=== PATIENT | female | born 1995 | race Caucasian/White ===

== ENCOUNTER 2016-10-24 17:55 | Emergency (ER) | payer BC ==
[~2016-10-24] VITALS: Ht 154.9 cm; Wt 90.7 kg
[~2016-10-24 17:55] MED LIST: AMBIEN 10MG TAB10 MG PO; AMICAR PO; AMITRIPTYLINE H10 M1 PO; CELEBREX 100MG100 MG PO; CELEBREX100 MG PO; DEPO-PROVER150 MG/ML IM; DESMOPRESSIN NS; GABAPENTIN300 M1 PO; HUMATE P; LAMICTAL150 MG PO; LORTAB 5/500 501 TAB PO; LYSTEDA650 MG PO; NUVARING1 ICR VG; ORTHO EVRA1 TD2; OXYCODONE 5MG TA5 MG PO; PERCOCET1 TAB PO; PHENERGAN 25MG.25 MG PR; PRILOSEC20 M1 PO; TAMIFLU 75MG CA75 MG PO; TAMSULOSIN HCL0.4 MG PO; UROCIT-K 1010 MEQ PO; WELLBUTRIN XL150 MG PO; WELLBUTRIN XL300 MG; ZITHROMAX Z PA250 MG PO; ZOFRAN ODT4 MG PO; ZOFRAN4 MG PO; Zofran4 MG PO; [UNRECOGNIZED DRUG - OTHER] NS; [UNRECOGNIZED DRUG - OTHER] NS; [UNRECOGNIZED DRUG - OTHER] PO
--- OUTSIDE RECORDS SUMMARY | 2016-10-24 18:10 | External Medical Summary Rpt ---
Author Author , Organization [employer] Address Unknown Phone Unavailable Care Team Providers Care Supervisor Billposting Name Role Phone A Josefa RICE MD [facility], A Unavailable Unavailable Josefa RICE MD PSC [facility] Unavailable Unavailable INC, [facility] Unavailable Unavailable INC # [id number], [facility] # [id number] BADGETT JAM, BADGETT Unavailable Unavailable JAM CHISHTI AFT, CHISHTI Unavailable Unavailable [facility], Unavailable Unavailable [facility], Unavailable Unavailable [facility] JACEK BRYAN, Unavailable Unavailable JACEK BRYAN JACEK, LINCOLN, Unavailable Unavailable JACEK, LINCOLN [facility], Unavailable Unavailable [facility] [place]available [place]available [place], [facility] [place] [facility] [place] Un[place] [facility] [place] FLOMENHOFT MARTINEZ, Unavailable Unavailable FLOMENHOFT MARTINEZ SHAHNAZ, CHRISTOPHER, Unavailable Unavailable SHAHNAZ, CHRISTOPHER [facility] Unavailable Unavailable [facility], [facility] Unavailable Unavailable [facility], [facility] Unavailable Unavailable [place], [facility] Unavailable Unavailable [place], [facility] Unavailable Unavailable [facility], [facility] Unavailable Unavailable [facility], [facility] Unavailable Unavailable INC, [facility] VAUGHN NATALIE, VAUGHN NATALIE Unavailable Unavailable VAUGHN NATALIE, VAUGHN NATALIE Unavailable Unavailable [facility], Unavailable Unavailable [facility] ABDON MATTHEWS Unavailable Unavailable DEVIN ORR, Unavailable Unavailable DEVIN COPPOLA [facility] Unavailable Unavailable PHARMACY, [facility] Unavailable Unavailable [facility], [facility] KMS NURSE Unavailable Unavailable PRACTITIONER GR, KMSF NURSE PRACTITIONER [facility] Un[facility] DEANNE GRA, DEANNE Unavailable Unavailable GRA DEANNE GRA, DEANNE Unavailable Unavailable GRA BREN ALICEA W, Unavailable Unavailable BREN ALICEA JAM, Unavailable Unavailable SUE RANKIN MIDBOE-CHAY, RENNY Unavailable Unavailable R, MIDBOE-CHAY, RENNY R JEREMY ESRTADA P, Unavailable Unavailable JEREMY ESTRADA P MIDDLETON KARTHIK, Unavailable Unavailable MIDDLETON KARTHIK PETTEY JAM, PETTEY Unavailable Unavailable JAM [facility], Unavailable Unavailable [facility] RAD[facility], JASMINA C, Unavailable Unavailable RADULESCU, JASMINA C RANSDELL WAR, Unavailable Unavailable RANSDELL WAR RANSDELL WAR, Unavailable Unavailable RANSDELL WAR NAN INFANTE, Unavailable Unavailable NAN INFANTE ELMO MARCELINA, ELMO Unavailable Unavailable AMRCELINA ELMO MARCELINA, ELMO Unavailable Unavailable MARCELINA ELMO, TERESA, Unavailable Unavailable ELMO, TERESA [id number], Unavailable Unavailable [id number] Unavailable Unavailable [id number] # [id number], [facility] [id number] # [id number] MARGARITA NOVAK, Unavailable Unavailable MARGARITA NOVAK SHASHY Unavailable Unavailable WINSTON MONTERO SHASHSidney Unavailable Unavailable SHERI KUMARI, Unavailable Unavailable SHERI GRACE JEREMY V, Unavailable Unavailable ALEKSANDR BROWNING V [facility] Unavailable Unavailable [facility], [facility] Unavailable Unavailable [facility] Unavailable Unavailable [facility] NURSE, [facility] N[facility] DEPT OF Unavailable Unavailable PEDIATRIC, [facility] DEPT OF PEDIATRIC [facility], Unavailable Unavailable [facility] RADHA MARTINEZ, Unavailable Unavailable RADHA MARTINEZ EVELYN MCKENZIE, EVELYN MCKENZIE Unavailable Unavailable ALISON ESPINAL JR Unavailable Unavailable TEDDY Terry JR, EDWARD J Purpose Continuity of Care Document - 05-22-2007 through 2016 Problems Code Diagnosis DOS Provider Status 2864 VON 09-21-2013 [facility] 5920 CALCULUS OF 09-21-2013 [facility] 7880 RENAL COLIC 09-21-2013 [facility] 52327 ABDOMINAL 09-20-2013 [facility] PAIN, DEPT OF GENERALIZED PEDIATRIC 4660 ACUTE 08-28-2013 [facility] BRONCHITIS FAB 4618 OTHER ACUTE 07-19-2013 [facility] SINUS[facility]IS [facility] 62584 CLOSED 03-27-2013 DEANNE GRA DISLOCATION MULTIPLE CERVICAL VERTEBRAE 8470 NECK SPRAIN 03-27-2013 DEANNE GRA AND STRAIN 8471 THORACIC 03-27-2013 DEANNE GRA [facility] 8472 LUMBAR 03-27-2013 DEANNE GRA [facility] 06663 CORNEAL 11-15-2011 VAU[facility] NATALIE ABSCESS 77495 NAUSEA 09-01-2011 [facility] 42862 HEMATURIA 08-01-2011 ELMO MARCELINA UNSPECIFIED 462 ACUTE 06-25-2011 A Josefa RICE PHARYNGITIS [facility] 84934 UNSPECIFIED 04-15-2011 ELMO MARCELINA OTALGIA 4619 ACUTE 04-15-2011 ELMO MARCELINA SINUSITIS, UNSPECIFIED 5921 CALCULUS OF 03-14-2011 [facility] V0481 NEED 02-07-2011 [facility] VACCINATION &INOCULATIO N FLU 7088 OTHER 01-31-2011 [facility] SPECIFIED [facility] URTICARIA INC 83139 PAIN IN 01-31-2011 [facility] JOINT, [facility] MULTIPLE INC SITES 55551 GENERALIZED 01-20-2011 [facility] ANXIET[facility] DISORDER [facility] 63565 UNSPECIFIED 01-04-2011 [facility] CLOSED HOME FRACTURE OF MEDICAL CARPAL EQUIPME BONE 77345 OTHER WRIST 01-04-2011 [facility] SPRAIN AND PHYSICIANS STRAIN GROUP 47695 CONTUSION 01-04-2011 [facility] OF WRIST [facility] 83078 PAIN IN 12-21-2010 [facility] 7291 UNSPECIFIED 12-21-2010 [facility] 7295 PAIN IN 12-21-2010 [facility] SOFT MIDDLE TISSUES OF SCHOOL LIMB 9249 CONTUSION 09-14-2010 [facility] CO OF MIDDLE UNSPECIFIED SCHOOL SITE 7827 SPONTANEOUS 09-13-2010 [facility] ECCHYMOSES [facility]OL 7840 HEADACHE 09-08-2010 [facility] 23006 OTHER 09-01-2010 [facility] MALAISE [facility] FATIGUE S[facility] 98061 UNSPECIFIED 08-11-2010 [facility] SITE OF HOSPITAL ANKLE SPRAIN AND STRAIN V146 PERSONAL 08-11-2010 [facility] HISTORY OF HOSPITAL ALLERGY TO ANALGESIC AGENT V1507 PERSONAL 08-11-2010 [facility] ALLERGY TO LATEX 4659 ACUTE URIS 07-15-2010 A Josefa REESE [facility] UNSPECIFIED SITE 09777 UNSPECIFIED 07-01-2010 [facility] RETINAL VISION DEFECT 25962 REGULAR 07-01-2010 [facility] ASTIGMATISM WAR 30049 VISUAL 07-01-2010 [facility] DISCOMFORT WAR 3688 OTHER 07-01-2010 [facility] SPECIFIED WAR VISUAL DISTURBANCE S 58466 GENERALIZED 06-23-2010 [facility]IN [facility] 5641 IRRITABLE 05-20-2010 [facility] [place] [address] PAIN [place] 05-13-2010 [facility] AROUND EYE [facility] V2501 GENERAL 05-12-2010 A Josefa RICE COUNSELING [facility] PRESCRIPTIO N ORAL CONTRACEPTS V2540 UNSPECIFIED 05-12-2010 A Josefa RICE MD [facility] CONTRACEPTI VE SURVEILLANC E 7847 EPISTAXIS 04-09-2010 [facility] 7848 HEMORRHAGE 04-09-2010 [facility] FROM THROAT [facility] 7841 THROAT PAIN 03-23-2010 [facility] 6263 PUBERTY 02-24-2010 [place] [facility] 0088 INTESTINAL 01-30-2010 A Josefa RICE INFECTION [facility] DUE TO OTHER ORGANISM NEC 92872 DEHYDRATION 01-30-2010 A Josefa RICE MD [facility] 5589 OTH&UNSPEC 01-30-2010 [facility] NONINFECTIO [facility] US INC GASTROENTER ITIS&COLITI S 47550 PAIN IN 01-20-2010 [place] [facility], [facility] ANK[facility] IMAGING [facility] FOOT 8448 SPRAIN&STRA 01-20-2010 A Josefa RICE IN OTHER [facility] SPECIFIED SITES KNEE&LEG 47835 CONTUSION 01-20-2010 A Josefa RICE OF FOOT [facility] 9597 INJURY 01-20-2010 [place] OTHER&UNSPE MEDICAL CIFIED KNEE IMAGING ASS LEG ANKLE&FOOT V705 HEALTH 01-20-2010 [place] EXAMINATION MEDICAL OF DEFINED IMAGING ASS SUBPOPULATI ON 5758 OTHER 01-08-2010 [facility] NURSE SPECIFIED PRACTITIONE DISORDER OF R GR GALLBLADDER 94130 DIARRHEA 01-08-2010 [facility] [place] [address] ABDOMINAL 01-08-2010 [facility] NURSE PAIN, LEFT PRACTITIONE UPPER R GR QUADRANT V4579 OTHER 01-08-2010 [facility] NURSE ACQUIRED PRACTITIONE ABSENCE OF R GR ORGAN 82629 OTHER 11-20-2009 [facility] INSUFFICIEN CY NEC 9953 ALLERGY 11-20-2009 [facility] NOT ELSEWHERE CLASSIFIED 20368 ABDOMINAL 11-17-2009 [facility] PAIN, MEDICAL UNSPECIFIED IMAGING ASS SITE 82861 NAUSEA WITH 11-12-2009 [facility] VOMITING [facility] 99101 ABDOMINAL 11-12-2009 [facility] PAIN RIGHT MEDICAL UPPER IMAGING ASS QUADRANT 2892 NONSPECIFIC 11-02-2009 Aidee RICE MESENTERIC [facility] [place] [address] ABDOMINAL 10-28-2009 [facility] PAIN RIGHT [facility] LOWER INC QUADRANT 5601 PARALYTIC 10-27-2009 [place] [facility] 0340 STREPTOCOCC 09-24-2009 Aidee LEE MD [facility] THROAT 9233 CONTUSION 09-10-2009 [facility] OF FINGER [facility] 6262 EXCESSIVE 07-01-2009 [place] [facility]QUENT SERV [facility] MENSTRUATIO N 2850 SIDEROBLAST 06-12-2009 Aidee RICE IC ANEMIA [facility] E9479 UNSPEC 06-12-2009 A Josefa RICE RX/MEDICINA [facility] L SBSTNC CAUS ADVRS EFF TX USE 470 DEVIATED 06-08-2009 SHASHY WINSTON NASAL SEPTUM 4780 HYPERTROPHY 06-08-2009 SHASHY WINSTON OF NASAL TURBINATES 49670 OTHER 06-08-2009 [facility] DISEASES [facility]AL [facility]OSPITAL CAVITY AND SINUSES 8020 NASAL 06-08-2009 [place] BONES, ANESTHESIA CLOSED GROUP [facility] FRACTURE 11021 HEMORRHAGE 06-08-2009 [facility] COMPLICATIN [facility] PROCEDURE NEC 4720 CHRONIC 06-05-2009 SHASHY WINSTON RHINITIS 920 CONTUSION 05-25-2009 A Josefa RICE OF FACE [facility] SCALP AND NECK EXCEPT EYE 98687 OTHER 12-25-2008 [facility] CHRONIC VISION ALLERGIC CONJUNCTIVI TIS 75975 UNSPECIFIED 11-24-2008 Aidee RICE MD [facility] CONSTIPATIO N 2561 OTHER 11-03-2008 Aidee RICE OVARIAN [facility] [place] [address] SPRAIN AND 11-01-2008 [facility] STRAIN OF MEM HOS[facility] UNSPECIFIED INC SITE OF HAND 27157 SPRAIN AND 11-01-2008 [place] STRAIN OF MEDICAL UNSPECIFIED IMAGING SITE OF ASSOCIATES FOOT E8498 OTHER 11-01-[address] OF IMAGING OCCURRENCE ASSOCIATES E9278 OTH 11-01-2008 [place] OVEREXERT&S MEDICAL TRENUOUS&RE IMAGING PETITIVE ASSOCIATES MVMNTS/LOAD S 59770 ESOPHAGEAL 10-07-2008 Aidee RICE REFLUX [facility] 6253 DYSMENORRHE 10-07-2008 A Josefa Hoskins MD [facility] V061 NEED PROPH 09-15-2008 A Josefa RICE VAC W/SHAKIRA MOBLEY [facility] DIPHTH-TETA NUS-PERTUSS VAC V202 ROUTINE 09-15-2008 A Josefa RICE INFANT OR [facility] CHILD HEALTH CHECK 7231 CERVICALGIA 08-20-2008 SHAHNAZ, HERMILAOPHER 7241 PAIN IN 08-20-2008 SHAHNAZ, THORACIC CHRISTOPHER SPINE 3629 UNSPECIFIED 07-25-2008 [facility] RETINAL VISION DISORDER 5368 DYSPEPSIA&O 04-08-2008 [facility] THER SPEC HEALTH DISORDERS CENTRAL FUNCTION BANK ACCT STOMACH 71319 FEVER 02-23-2008 [facility] UNSPECIFIED [facility] INC 3670 HYPERMETROP 09-10-2007 EM [facility]OWN[facility] V 2879 UNSPECIFIED 07-20-2007 [facility] HEMORRHAGIC INC CONDITIONS N23 UNSPECIFIED RENAL COLIC Medications Na ND Rx Da Fi Fi Am Da Di Ph RX Ph St me C No te ll ll ou ys ag ar # ys at rm s nt no ma ic us Or Da si cy ia de te s n re d OR 50 08 10 4 9. 56 EA 23 JA Ac TH 45 -2 -[address] 84 CK ti O 80 6- 1- 0 SI 22 SO ve EV 19 20 20 DE N RA 21 11 11 WE 5 PH ND PA AR Y TC MA L H CY OF CY NT HI AN A AD 54 10 10 0 30 30 EA 24 BR Ac DE 09 -1 -[address] 49 AU ti RA 20 3- 3- 00 SI 63 N ve LL 38 20 20 DE NA 70 11 11 NC XR 1 PH Y AR 20 MA CY MG OF CA PS CY UL NT E HI AN A VE 00 10 10 0 30 30 EA 24 BR Ac NL 09 -0 -[address] 43 AU ti AF 37 4- 8- 00 SI 79 N ve AX 38 20 20 DE NA IN 00 11 11 NC E 1 PH Y HC AR L MA 37 CY .5 OF MG CY TA NT BL HI ET AN A ON 65 10 10 12 30 RI 90 RI Ac DA 86 -0 -0 .0 TE 13 SH ti NS 20 1- 1- 00 80 ER ve ET 18 20 20 AI RO 73 11 11 D RI N 0 PH CH HC AR AR L MA D 4 CY MG 03 TA 93 BL 8 ET # 03 93 IN 64 09 09 0 14 14 EA 24 MA Ac EV 76 -2 -[address] 30 SH ti PA 40 9- 9- 00 SI 29 BU ve C 70 20 20 DE RN PA 20 11 11 TI 1 PH AM EN AR Y T MA B PA CY CK OF CY NT HI AN A NE 00 09 09 1 30 30 EA 24 MA Ac XI 18 -2 -[address] 30 SH ti UM 65 9- 9- 00 SI 30 BU ve 04 [address] 03 11 11 1 PH AM 40 AR Y MA B MG CY CA OF PS UL CY E NT HI AN A CE 45 09 09 6 30 30 EA 24 MA Ac TI 80 -2 -[address] 24 SH ti RI 20 6- 6- 00 SI 84 BU ve ZI 91 20 20 DE RN NE 98 11 11 7 PH AM HC AR Y L MA B 10 CY MG OF TA CY BL NT ET HI AN A RA 53 09 09 6 60 30 EA 24 MA Ac NI 74 -2 -[address] 24 SH ti TI 60 6- 6- 00 SI 85 BU ve DI 25 20 20 DE RN NE 31 11 11 0 PH AM 15 AR Y 0 MA B MG CY TA OF BL ET CY NT HI AN A TR 00 09 09 6 80 20 EA 24 MA Ac IA 16 -2 -[address] 24 SH ti MC 80 6- 6- 00 SI 88 BU ve IN 00 20 20 DE RN OL 68 11 11 ON 0 PH AM E AR Y 0. MA B 1% CY OI OF NT ME CY NT NT HI AN A LO 45 09 09 1 30 30 EA 24 RI Ac RA 80 -1 -[address] 14 SH ti TA 20 9- 9- 00 SI 73 ER ve DI 65 20 20 DE NE 08 11 11 RI 7 PH CH 10 AR AR MA D MG CY TA OF BL ET CY NT HI AN A 00 09 09 0 90 30 EA 24 BR Ac 17 -1 -[address] 09 AU ti 25 5- 5- 00 SI 64 N ve 66 20 20 DE NA 56 11 11 NC 0 PH Y AR MA CY OF CY NT HI AN A AD 54 09 09 0 30 30 EA 24 BR Ac DE 09 -1 -[address] 09 AU ti RA 20 5- 5- 00 SI 66 N ve LL 38 20 20 DE NA 70 11 11 NC XR 1 PH Y AR 20 MA CY MG OF CA PS CY UL NT E HI AN A ME 00 09 09 0 21 6 EA 24 MO Ac TH 78 -1 -[address] 03 SE ti YL 15 0- 0- 00 SI 71 S ve IN [address] ED 20 11 11 EP NI 7 PH HE SO AR N LO MA A NE CY 4 OF MG CY DO NT SE HI PK AN A BU 00 08 08 3 90 30 EA 23 BR Ac SP 37 -2 -[address] 86 AU ti IR 81 9- 9- 00 SI 67 N ve ON 14 20 20 DE NA E 00 11 11 NC HC 1 PH Y L AR 5 MA MG CY TA OF BL ET CY NT HI AN A SE 59 08 08 0 15 12 EA 23 BR Ac RT 76 -2 -[address] 86 AU ti RA 24 9- 9- 00 SI 70 N ve LI 94 20 20 DE NA NE 00 11 11 NC 1 PH Y 20 AR MA MG CY /M L OF OR AL CY NT CO HI NC AN A OR 50 08 08 4 9. 56 EA 23 JA Ac TH 45 -2 -[address] 84 CK ti O 80 6- 6- 0 SI 22 SO ve EV 19 20 20 DE N RA 21 11 11 WE 5 PH ND PA AR Y TC MA L H CY OF CY NT HI AN A 00 08 08 0 15 4 EA 23 BUCKNER Ac 59 -1 -[address] 70 LL ti 10 6- 7- 00 SI 00 ve 34 20 20 DE MA 90 11 11 RS 1 PH BUCKNER AR LL MA M CY OF CY NT HI AN A AD 54 08 08 0 30 30 EA 23 SW Ac DE 09 -0 -[address] 64 OP ti RA 20 8- 2- 00 SI 80 E ve LL 38 20 20 DE MA 50 11 11 RI XR 1 PH AN AR A 15 MA CY MG OF CA PS CY UL NT E HI AN A SE 16 08 08 0 15 30 EA 23 SW Ac RT 71 -0 -[address] 55 OP ti RA 40 5- 5- 00 SI 31 E ve LI 61 20 20 DE MA NE 30 11 11 RI 6 PH AN HC AR A L MA 10 CY 0 MG OF TA CY BL NT ET HI AN A BU 00 05 06 3 90 30 EA 22 TI Ac SP 37 -2 -[address] 66 MM ti IR 81 4- 0- 00 SI 23 E ve ON 14 20 20 DE RE E 00 11 11 BE HC 1 PH CC L AR A 5 MA MG CY TA OF BL ET CY NT HI AN A AD 54 06 06 0 30 30 EA 22 TI Ac DE 09 -1 -[address] 88 MM ti RA 20 0- 0- 00 SI 43 E ve LL 38 20 20 DE RE 50 11 11 BE XR 1 PH CC AR A 15 MA CY MG OF CA PS CY UL NT E HI AN A SE 16 06 06 0 13 21 EA 22 TI Ac RT 71 -0 -[address] 79 MM ti RA 40 3- 3- 00 SI 82 E ve LI 61 20 20 DE RE NE 10 11 11 BE 6 PH CC HC AR A L MA 25 CY MG OF TA CY BL NT ET HI AN A ME 59 06 06 0 1. 30 EA [address] 76 -0 -[address] 77 CK ti OX 24 1- 1- 0 SI 82 SO ve YP 53 20 20 DE N RO 70 11 11 WE GE [address] AR Y ER MA L ON CY E 15 OF 0 MG CY /M NT L HI AN A SE 16 04 05 1 30 30 EA 22 TI Ac RT 71 -2 -[address] 21 MM ti RA 40 0- 4- 00 SI 92 E ve LI 61 20 20 DE RE NE 30 11 11 BE 6 PH CC HC AR A L MA 10 CY 0 MG OF TA CY BL NT ET HI AN A DE 00 05 05 0 30 30 EA 22 TI Ac XT 55 -2 -[address] 66 MM ti RO 50 4- 4- 00 SI 22 E ve AM 97 20 20 DE RE P- 10 11 11 BE AM 2 PH CC PH AR A ET MA AM CY IN E OF 5 MG CY NT TA HI B AN A AD 54 05 05 0 30 30 EA 22 TI Ac DE 09 -0 -[address] 50 MM ti RA 20 9- 2- 00 SI 09 E ve LL 38 20 20 DE RE 50 11 11 BE XR 1 PH CC AR A 15 MA CY MG OF CA PS CY UL NT E HI AN A AZ 00 05 05 0 6. 5 EA 22 RI Ac IT 09 -0 -[address] 37 SH ti HR 37 3- 3- 0 SI 33 ER ve OM 14 20 20 DE YC 61 11 11 RI IN 8 PH CH AR AR 25 MA D 0 CY MG OF TA BL CY ET NT HI AN A CL 00 03 05 1 30 30 EA 21 BU Ac ON 22 -2 -[address] 85 RC ti ID 82 5- 2- 00 SI 10 HE ve IN 12 20 20 DE TT E 81 11 11 HC 0 PH HE L AR AT 0. MA HE 2 CY R MG OF TA BL CY ET NT HI AN A BU 00 03 05 1 90 30 EA 21 BU Ac SP 37 -2 -[address] 85 RC ti IR 81 5- 2- 00 SI 16 HE ve ON 14 20 20 DE TT E 00 11 11 HC 1 PH HE L AR AT 5 MA HE MG CY R TA OF BL ET CY NT HI AN A SE 16 04 04 1 30 30 EA 22 TI Ac RT 71 -2 -[address] 21 MM ti RA 40 0- 2- 00 SI 92 E ve LI 61 20 20 DE RE NE 30 11 11 BE 6 PH CC HC AR A L MA 10 CY 0 MG OF TA CY BL NT ET HI AN A DE 00 04 04 0 30 30 EA 22 TI Ac XT 55 -2 -[address] 21 MM ti RO 50 0- 2- 00 SI 93 E ve AM 97 20 20 DE RE P- 10 11 11 BE AM 2 PH CC PH AR A ET MA AM CY IN E OF 5 MG CY NT TA HI B AN A AB 59 03 04 1 30 30 EA 21 BU Ac IL 14 -2 -[address] 85 RC ti IF 80 5- 9- 00 SI 15 HE ve Y 00 20 20 DE TT 2 61 11 11 MG 3 PH HE AR AT TA MA HE BL CY R ET OF CY NT HI AN A ME 59 10 04 2 1. 30 EA [address] 76 -2 -[address] 64 CK ti OX 24 2- 5- 0 SI 82 SO ve YP 53 20 20 DE N RO 70 10 11 WE GE [address] AR Y ER MA L ON CY E 15 OF 0 MG CY /M NT L HI AN A AD 54 03 03 0 30 30 EA 21 WA Ac DE 09 -3 -[address] 92 CH ti RA 20 1- 1- 00 SI 30 EL ve LL 38 20 20 DE MA 50 11 11 N XR 1 PH EPI AR HN 15 MA D CY MG OF CA PS CY UL NT E HI AN A CL 00 03 03 1 30 30 EA 21 BU Ac ON 22 -2 -[address] 85 RC ti ID 82 5- 5- 00 SI 10 HE ve IN 12 20 20 DE TT E 81 11 11 HC 0 PH HE L AR AT 0. MA HE 2 CY R MG OF TA BL CY ET NT HI AN A SE 16 03 03 1 30 30 EA 21 BU Ac RT 71 -2 -[address] 85 RC ti RA 40 5- 5- 00 SI 14 HE ve LI 61 20 20 DE TT NE 30 11 11 6 PH HE HC AR AT L MA HE 10 CY R 0 MG OF TA CY BL NT ET HI AN A BU 00 03 03 1 90 30 EA 21 BU Ac SP 37 -2 -[address] 85 RC ti IR 81 5- 5- 00 SI 16 HE ve ON 14 20 20 DE TT E 00 11 11 HC 1 PH HE L AR AT 5 MA HE MG CY R TA OF BL ET CY NT HI AN A 68 03 03 0 20 10 EA 21 RI Ac 82 -1 -[address] 63 SH ti 00 0- 0- 00 SI 42 ER ve 06 20 20 DE 30 11 11 RI 9 PH CH AR AR MA D CY OF CY NT HI AN A 60 03 03 0 12 4 EA 21 RI Ac 25 -1 -[address] 63 SH ti 80 0- 0- 00 SI 43 ER ve 23 20 20 0 DE 91 11 11 RI 6 PH CH AR AR MA D CY OF CY NT HI AN A AB 59 01 03 1 30 30 EA 21 BU Ac IL 14 -3 -[address] 03 RC ti IF 80 1- 8- 00 SI 94 HE ve Y 00 20 20 DE TT 2 61 11 11 MG 3 PH HE AR AT TA MA HE BL CY R ET OF CY NT HI AN A 67 01 03 1 30 30 EA 21 BU Ac 25 -3 -[address] 03 RC ti 30 1- 3- 00 SI 96 HE ve 26 20 20 DE TT 31 11 11 0 PH HE AR AT MA HE CY R OF CY NT HI AN A CO 50 03 03 0 30 30 EA 21 RI Ac NC 45 -0 -[address] 51 SH ti ER 80 3- 3- 00 SI 53 ER ve TA 58 20 20 DE 80 11 11 RI ER 1 PH CH AR AR 27 MA D CY MG OF TA BL CY ET NT HI AN A SE 16 01 02 1 30 30 EA 21 BU Ac RT 71 -3 -[address] 03 RC ti RA 40 1- 7- 00 SI 99 HE ve LI 61 20 20 DE TT NE 30 11 11 6 PH HE HC AR AT L MA HE 10 CY R 0 MG OF TA CY BL NT ET HI AN A AB 59 01 02 1 30 30 EA 21 BU Ac IL 14 -3 -[address] 03 RC ti IF 80 1- 5- 00 SI 94 HE ve Y 00 20 20 DE TT 2 61 11 11 MG 3 PH HE AR AT TA MA HE BL CY R ET OF CY NT HI AN A HY 16 01 02 1 12 30 EA [address] 71 -3 -[address] 03 RC ti OX 40 1- 5- 00 SI 97 HE ve YZ 08 20 20 0 DE TT IN 10 11 11 E 4 PH HE HC AR AT L MA HE 10 CY R MG OF TA CY BL NT ET HI AN A CO 50 01 02 0 30 30 EA 21 ED Ac NC 45 -0 -[address] 03 WA ti ER 80 4- 1- [address] ve TA 58 20 20 DE S 80 11 11 SH ER 1 PH AR AR ON 27 MA CY MG OF TA BL CY ET NT HI AN A 67 01 02 1 30 30 EA 21 BU Ac 25 -3 -[address] 03 RC ti 30 1- 1- 00 SI 96 HE ve 26 20 20 DE TT 31 11 11 0 PH HE AR AT MA HE CY R OF CY NT HI AN A 00 01 01 0 30 5 EA 20 RI Ac 59 -2 -[address] 98 SH ti 10 7- 7- 00 SI 48 ER ve 34 20 20 DE 90 11 11 RI 1 PH CH AR AR MA D CY OF CY NT HI AN A 68 01 01 0 20 10 EA 20 RI Ac 82 -2 -[address] 98 SH ti 00 7- 7- 00 SI 49 ER ve 06 20 20 DE 30 11 11 RI 9 PH CH AR AR MA D CY OF CY NT HI AN A SE 16 01 01 1 30 30 EA 20 BU Ac RT 71 -0 -[address] 70 RC ti RA 40 6- 9- 00 SI 49 HE ve LI 61 20 20 DE TT NE 30 11 11 6 PH HE HC AR AT L MA HE 10 CY R 0 MG OF TA CY BL NT ET HI AN A CO 50 01 01 0 30 30 EA 20 ED Ac NC 45 -0 -[address] 70 WA ti ER 80 6- 9- [address] ve TA 58 20 20 DE S 50 11 11 SH ER 1 PH AR AR ON 18 MA CY MG OF TA BL CY ET NT HI AN A AB 59 01 01 1 30 30 EA 20 BU Ac IL 14 -0 -[address] 70 RC ti IF 80 6- 6- 00 SI 47 HE ve Y 00 20 20 DE TT 2 61 11 11 MG 3 PH HE AR AT TA MA HE BL CY R ET OF CY NT HI AN A HY 16 01 01 1 12 30 EA [address] 71 -0 -[address] 70 RC ti OX 40 6- 6- 00 SI 48 HE ve YZ 08 20 20 0 DE TT IN 10 11 11 E 4 PH HE HC AR AT L MA HE 10 CY R MG OF TA CY BL NT ET HI AN A ME 59 10 01 2 1. 30 EA [address] 76 -2 -[address] 64 CK ti OX 24 2- 5- 0 SI 82 SO ve YP 53 20 20 DE N RO 70 10 11 WE GE [address] AR Y ER MA L ON CY E 15 OF 0 MG CY /M NT L HI AN A SE 16 12 12 1 30 30 EA 20 ED Ac RT 71 -0 -[address] 30 WA ti RA 40 7- 0- [address] ve LI 61 20 20 DE S NE 30 10 10 SH 6 PH AR HC AR ON L MA 10 CY 0 MG OF TA CY BL NT ET HI AN A CO 50 12 12 0 30 30 EA 20 ED Ac NC 45 -1 -[address] 45 WA ti ER 80 8- 8- [address] ve TA 58 20 20 DE S 50 10 10 SH ER 1 PH AR AR ON 18 MA CY MG OF TA BL CY ET NT HI AN A ST 00 12 12 1 30 30 EA 20 YO Ac RA 00 -0 -[address] 30 UN ti TT 23 7- 7- 00 SI 37 G ve ER 22 20 20 DE RO A 83 10 10 SL 25 0 PH YN AR MG MA CY CA PS OF UL E CY NT HI AN A HY 16 12 12 1 12 30 EA [address] 71 -0 -[address] 30 UN ti OX 40 7- 7- 00 SI 38 G ve YZ 08 20 20 0 DE RO IN 10 10 10 SL E 4 PH YN HC AR L MA 10 CY MG OF TA CY BL NT ET HI AN A SE 16 10 11 1 30 30 EA 19 ED Ac RT 71 -1 -[address] 55 WA ti RA 40 5- 8- [address] ve LI 61 20 20 DE S NE 30 10 10 SH 6 PH AR HC AR ON L MA 10 CY 0 MG OF TA CY BL NT ET HI AN A AZ 00 11 11 0 6. 5 EA 20 RI Ac IT 09 -1 -[address] 02 SH ti HR 37 7- 7- 0 SI 61 ER ve OM 14 20 20 DE YC 61 10 10 RI IN 8 PH CH AR AR 25 MA D 0 CY MG OF TA BL CY ET NT HI AN A 60 11 11 0 12 3 EA 20 RI Ac 25 -1 -[address] 02 SH ti 80 7- 7- 00 SI 62 ER ve 23 20 20 0 DE 91 10 10 RI 6 PH CH AR AR MA D CY OF CY NT HI AN A ZHOU 24 11 11 0 15 5 EA 19 LE Ac LF 20 -1 -[address] 96 WI ti AC 80 4- 4- 00 SI 99 S ve ET 67 20 20 DE JR AM 00 10 10 ID 4 PH DW E AR IG 10 MA HT % CY E EY E OF DR OP CY S NT HI AN A HY 16 10 11 1 12 30 EA [address] 71 -1 -[address] 49 UN ti OX 40 1- 8- 00 SI 49 G ve YZ 08 20 20 0 DE RO IN 10 10 10 SL E 4 PH YN HC AR L MA 10 CY MG OF TA CY BL NT ET HI AN A ST 00 11 11 1 30 30 EA 19 YO Ac RA 00 -0 -[address] 89 UN ti TT 23 8- 8- 00 SI 30 G ve ER 23 20 20 DE RO A 83 10 10 SL 18 0 PH YN AR MG MA CY CA PS OF UL E CY NT HI AN A ME 59 10 10 2 1. 30 EA [address] 76 -2 -[address] 64 CK ti OX 24 2- 2- 0 SI 82 SO ve YP 53 20 20 DE N RO 70 10 10 WE GE [address] AR Y ER MA L ON CY E 15 OF 0 MG CY /M NT L HI AN A SE 16 10 10 1 30 30 EA 19 ED Ac RT 71 -1 -[address] 55 WA ti RA 40 5- 8- [address] ve LI 61 20 20 DE S NE 30 10 10 SH 6 PH AR HC AR ON L MA 10 CY 0 MG OF TA CY BL NT ET HI AN A 00 10 10 1 [address] Ac 09 -1 -[address] 53 RU ti 37 3- 3- 00 SI 23 P ve [address] 80 10 10 EP 1 PH HE AR N MA E CY OF CY NT HI AN A HY 16 10 10 1 12 30 EA [address] 71 -1 -[address] 49 UN ti OX 40 1- 1- 00 SI 49 G ve YZ 08 20 20 0 DE RO IN 10 10 10 SL E 4 PH YN HC AR L MA 10 CY MG OF TA CY BL NT ET HI AN A SE 16 09 09 1 15 30 EA 19 RI Ac RT 71 -1 -[address] 12 SH ti RA 40 4- 8- 00 SI 82 ER ve LI 61 20 20 DE NE 30 10 10 RI 6 PH CH HC AR AR L MA D 10 CY 0 MG OF TA CY BL NT ET HI AN A 00 09 09 0 30 10 EA 19 MO Ac 59 -2 -[address] 29 SE ti 10 5- 5- 00 SI 46 S ve [address] 90 10 10 EP 1 PH HE AR N MA A CY OF CY NT HI AN A 00 09 09 0 12 30 EA 19 GA Ac 09 -2 -[address] 27 IN ti 37 4- 4- 00 SI 54 EY ve 30 20 20 DE 16 10 10 WA 5 PH CH AR AE MA L CY S OF CY NT HI AN A SE 16 09 09 0 7. 14 EA 19 RI Ac RT 71 -1 -[address] 11 SH ti RA 40 4- 4- 0 SI 73 ER ve LI 61 20 20 DE NE 20 10 10 RI 6 PH CH HC AR AR L MA D 50 CY MG OF TA CY BL NT ET HI AN A ME 00 08 08 2 1. 1 EA [address] 70 -2 -[address] 89 RC ti OX 36 7- 7- 0 SI 46 UM ve YP 80 20 20 DE RO 10 10 10 WA GE [address] AR AM ER MA B ON CY E 15 OF 0 MG CY /M NT L HI AN A ZHOU 53 08 08 0 14 7 EA 18 CO Ac LF 74 -2 -[address] 79 LE ti AM 60 0- 0- 00 SI 54 ve ET 27 20 20 DE KA HO 20 10 10 RA XA 5 PH L ZO AR LE MA -T CY MP OF DS CY TA NT BL HI ET AN A EP 49 08 08 2 1. 1 EA 18 RI Ac IP 50 -1 -[address] 74 SH ti EN 20 7- 7- 0 SI 42 ER ve 50 20 20 DE 0. 00 10 10 RI 3 1 PH CH MG AR AR MA D AU CY TO -I OF [place] EC CY TO NT R HI AN A 00 08 08 0 20 5 EA 18 BA Ac 59 -0 -[address] 62 YL ti 10 7- 7- 00 SI 85 IF ve 34 20 20 DE F 90 10 10 SH 1 PH ER AR RY MA L CY OF CY NT HI AN A 00 04 08 1 2. 30 AC 25 PE Ac 05 -0 -0 50 CR 52 TE ti 32 7- 3- 0 ED 4 RS ve 45 20 20 O ON 30 10 10 HE 0 AL ZHOU TH SA N GR M OU P IN C # 07 0 AM 61 07 08 0 16 4 AC 27 RA Ac IN 74 -2 -0 0. CR 58 DU ti OC 80 8- 3- 00 ED 4 LE ve AP 04 20 20 0 O SC RO 50 10 10 HE U IC 1 AL VL TH AD AC C ID GR OU 50 P 0 IN MG C # TA 07 B 0 IN 00 07 07 1 45 8 EA 18 RI Ac OM 78 -2 -[address] 49 SH ti ET 11 8 8- 00 SI 80 ER ve BUCKNER 83 20 20 DE ZI 01 10 10 RI NE 0 PH CH AR AR 25 MA D CY MG OF TA BL CY ET NT HI AN A DI 00 07 07 3 90 30 EA 18 FL Ac CY 59 -2 -[address] 45 OM ti CL 10 4- 4- 00 SI 90 EN ve OM 79 20 20 DE HO IN 40 10 10 FT E 1 PH 10 AR DE MA RAHUL MG CY RA H CA OF PS UL CY E NT HI AN A 00 07 07 0 12 3 EA 18 No Ac 14 -1 -[address] 37 t ti 31 7- 7- 00 SI 90 Av ve 47 20 20 DE ai 70 10 10 la 5 PH bl AR e MA CY OF CY NT HI AN A EP 49 07 07 0 1. 1 EA 18 No Ac IP 50 -1 -[address] 37 t ti EN 20 7- 7- 0 SI 91 Av ve 50 20 20 DE ai 0. 00 10 10 la 3 1 PH bl MG AR e MA AU CY TO -I OF [place] EC CY TO NT R HI AN A ME 00 07 07 0 1. 1 EA [address] 70 -0 -[address] 20 CK ti OX 36 2- 2- 0 SI 75 SO ve YP 80 20 20 DE N RO 10 10 10 WE GE [address] AR Y ER MA L ON CY E 15 OF 0 MG CY /M NT L HI AN A IN 00 06 06 1 30 5 EA 18 RI Ac OM 78 -2 -[address] 14 SH ti ET 11 8- 8- 00 SI 08 ER ve BUCKNER 83 20 20 DE ZI 01 10 10 RI NE 0 PH CH AR AR 25 MA D CY MG OF TA BL CY ET NT HI AN A 00 06 06 0 30 5 EA 18 MO Ac 59 -2 -[address] 09 SE ti 10 3- 3- 00 SI 35 S ve [address] 90 10 10 EP 1 PH HE AR N MA A CY OF CY NT HI AN A IN 37 06 06 1 60 30 EA 18 RI Ac IL 00 -2 -[address] 06 SH ti OS 00 2- 2- 00 SI 98 ER ve EC 45 20 20 DE 50 10 10 RI OT 2 PH CH C AR AR 20 MA D .6 CY MG OF TA CY BL NT ET HI AN A ME 00 02 05 3 1. 1 EA [address] 70 -2 -[address] 52 CK ti OX 36 6- 6- 0 SI 70 SO ve YP 80 20 20 DE N RO 10 10 10 WE GE [address] AR Y ER MA L ON CY E 15 OF 0 MG CY /M NT L HI AN A CE 00 05 05 0 30 10 EA 17 WR Ac PH 09 -2 -[address] 67 IG ti AL 33 0- 0- 00 SI 71 HT ve EX 14 20 20 DE IN 70 10 10 AR 5 PH DY 50 AR C 0 MA MG CY CA OF PS UL CY E NT HI AN A LI 60 05 05 0 24 6 EA 17 WR Ac DO 43 -2 -[address] 67 IG ti CA 20 0- 0- 00 SI 72 HT ve IN 46 20 20 0 DE E 40 10 10 AR 2% 0 PH DY AR C MA SC CY OU S OF SO LN CY NT HI AN A ME 00 02 04 2 1. 1 EA [address] 70 -2 -[address] 52 CK ti OX 36 6- 2- 0 SI 70 SO ve YP 80 20 20 DE N RO 10 10 10 WE GE [address] AR Y ER MA L ON CY E 15 OF 0 MG CY /M NT L HI AN A 00 04 04 1 2. 30 AC 25 PE Ac 05 -0 -1 50 CR 52 TE ti 32 7- 2- 0 ED 4 RS ve 45 20 20 O ON 30 10 10 HE 0 AL ZHOU TH SA N GR M OU P IN C # 07 0 IN 37 06 03 3 30 30 EA 12 RI Ac IL 00 -0 -[address] 98 SH ti OS 00 2- 7- 00 SI 81 ER ve EC 45 20 20 DE 50 09 10 RI OT 2 PH CH C AR AR 20 MA D .6 CY MG OF TA CY BL NT ET HI AN A ME 00 02 03 2 1. 1 EA [address] 70 -2 -[address] 52 CK ti OX 36 6- 4- 0 SI 70 SO ve YP 80 20 20 DE N RO 10 10 10 WE GE [address] AR Y ER MA L ON CY E 15 OF 0 MG CY /M NT L HI AN A 00 02 02 00 40 5 EA 16 SH Ac 59 -0 -[address] 18 ti 10 1- SI 75 HY ve 38 20 20 DE 50 10 10 RO 1 PH NA AR LD MA G CY OF CY NT HI AN A 66 01 02 00 28 7 KE 13 RA Ac 47 -2 -1 0. NT 17 DU ti 90 9- 1- UC 30 LE ve 02 20 20 0 KY 8 SC 18 10 10 U 2 CL VL IN AD IC C PH AR MA CY CE 00 02 02 00 28 7 EA 16 SH Ac PH 09 -0 -[address] 18 ti AL 33 1- 1- 00 SI 74 HY ve EX 14 20 20 DE IN 70 10 10 RO 5 PH NA 50 AR LD 0 MA G MG CY CA OF PS CY UL NT E HI AN A 00 01 01 00 30 10 EA 15 RI Ac 25 -1 -[address] 94 SH ti 83 2- 8- 00 SI 06 ER ve 65 20 20 DE 40 10 10 RI 1 PH CH AR AR MA D CY OF CY NT HI AN A AM 00 01 01 00 20 10 EA 15 RI Ac OX 09 -1 -[address] 94 SH ti -C 32 2- 8- 00 SI 05 ER ve LA 27 20 20 DE V 53 10 10 RI 87 4 PH CH 5- AR AR 12 MA D 5 CY MG OF TA CY BL NT ET HI AN A ME 00 01 01 00 1. 1 EA [address] 70 -2 -[address] 06 CK ti OX 36 2- 8- 0 SI 07 SO ve YP 80 20 20 DE N RO 10 10 10 WE GE [address] AR Y ER MA L ON CY E 15 OF 0 CY MG NT /M HI L AN A HY 00 01 01 00 12 24 EA [address] 47 -1 -[address] 94 SH ti OM 21 2- 8- 00 SI 07 ER ve ET 03 20 20 0 DE 01 10 10 RI SY 6 PH CH RU AR AR P MA D CY OF CY NT HI AN A ME 00 12 12 00 1. 1 EA [address] 70 -2 -[address] 68 CK ti OX 36 2- 1- 0 SI 95 SO ve YP 80 20 20 DE N RO 10 09 09 WE GE [address] AR Y ER MA L ON CY E 15 OF 0 CY MG NT /M HI L AN A FE 00 12 12 00 30 30 EA 15 JA Ac RR 67 -2 -[address] 68 CK ti OU 70 2- 1- 00 SI 96 SO ve S 07 20 20 DE N ZHOU 00 09 09 WE LF 1 PH ND AT AR Y E MA L 32 CY 5 MG OF CY TA NT BL HI ET AN A CA 00 10 12 01 56 28 EA 14 JA Ac WA 55 -2 -[address] 77 CK ti LA 50 0- 7- 00 SI 28 SO ve 71 20 20 DE N 0. 55 09 09 WE 35 8 PH ND AR Y MG MA L CY TA BL OF ET CY NT HI AN A 00 11 12 00 60 30 EA 15 RI Ac 60 -2 -[address] 31 SH ti 35 7- 3- 00 SI 42 ER ve 46 20 20 DE 82 09 09 RI 8 PH CH AR AR MA D CY OF CY NT HI AN A CA 00 10 11 00 56 28 EA 14 JA Ac WA 55 -2 -[address] 77 CK ti LA 50 0- 9- 00 SI 28 SO ve 71 20 20 DE N 0. 55 09 09 WE 35 8 PH ND AR Y MG MA L CY TA BL OF ET CY NT HI AN A 00 11 11 00 30 5 EA 15 RI Ac 40 -1 -[address] 07 SH ti 62 0- 9- 00 SI 72 ER ve 04 20 20 DE 11 09 09 RI 0 PH CH AR AR MA D CY OF CY NT HI AN A 00 09 11 01 82 4 AC 15 PE Ac 05 -0 -0 12 CR 83 TE ti 37 4- 5- .0 ED 9 RS ve 61 20 20 00 O ON 52 08 09 HE 0 AL ZHOU TH SA N GR M OU P IN C 00 10 11 00 10 2 EA 14 JA Ac 59 -2 -[address] 77 CK ti 10 0- 5- 00 SI 29 SO ve 34 20 20 DE N 90 09 09 WE 1 PH ND AR Y MA L CY OF CY NT HI AN A 57 10 11 00 60 20 EA 14 CO Ac 66 -2 -[address] 87 RM ti 40 7- 5- 00 SI 54 NE ve 10 20 20 DE Y 30 09 09 RH 8 PH ON AR DA MA H CY OF CY NT HI AN A CA 00 08 10 02 56 28 EA 13 JA Ac WA 55 -1 -[address] 79 CK ti LA 50 1- 2- 00 SI 86 SO ve 71 20 20 DE N 0. 55 09 09 WE 35 8 PH ND AR Y MG MA L CY TA BL OF ET CY NT HI AN A 00 06 10 00 2. 30 AC 20 PE Ac 05 -2 -2 50 CR 75 TE ti 32 4- 2- 0 ED 5 RS ve 45 20 20 O ON 30 09 09 HE 0 AL ZHOU TH SA N GR M OU P IN C AZ 00 10 10 00 6. 5 EA 14 RI Ac IT 09 -0 -[address] 59 SH ti HR 37 7- 2- 0 SI 92 ER ve OM 14 20 20 DE YC 61 09 09 RI IN 8 PH CH AR AR 25 MA D 0 CY MG OF TA CY BL NT ET HI AN A AM 00 10 10 00 20 10 EA 14 RI Ac OX 09 -1 -[address] 68 SH ti -C 32 3- 2- 00 SI 17 ER ve LA 27 20 20 DE V 53 09 09 RI 87 4 PH CH 5- AR AR 12 MA D 5 CY MG OF TA CY BL NT ET HI AN A PA 00 08 09 01 5. 15 EA 13 HI Ac TA 06 -2 -[address] 94 NE ti NO 50 1- 4- 0 SI 47 S ve L 27 20 20 DE BR 0. 10 09 09 ET 1% 5 PH T AR A EY MA E CY DR OP OF S CY NT HI AN A CA 00 08 09 01 56 28 EA 13 JA Ac WA 55 -1 -[address] 79 CK ti LA 50 1- 4- 00 SI 86 SO ve 71 20 20 DE N 0. 55 09 09 WE 35 8 PH ND AR Y MG MA L CY TA BL OF ET CY NT HI AN A CA 00 08 08 00 56 28 EA 13 JA Ac WA 55 -1 -[address] 79 CK ti LA 50 1- 7- 00 SI 86 SO ve 71 20 20 DE N 0. 55 09 09 WE 35 8 PH ND AR Y MG MA L CY TA BL OF ET CY NT HI AN A PA 00 08 08 00 5. 15 EA 13 HI Ac TA 06 -2 -[address] 94 NE ti NO 50 1- 7- 0 SI 47 S ve L 27 20 20 DE BR 0. 10 09 09 ET 1% 5 PH T AR A EY MA E CY DR OP OF S CY NT HI AN A CA 00 07 08 00 28 28 EA 13 JA Ac WA 55 -2 -[address] 63 CK ti LA 50 7- 3- 00 SI 17 SO ve 71 20 20 DE N 0. 55 09 09 WE 35 8 PH ND AR Y MG MA L CY TA BL OF ET CY NT HI AN A AM 00 07 08 00 20 10 EA 13 JA Ac OX 09 -2 -[address] 63 CK ti -C 32 7- 3- 00 SI 16 SO ve LA 27 20 20 DE N V 43 09 09 WE 50 4 PH ND 0- AR Y 12 MA L 5 CY MG OF TA CY BL NT ET HI AN A CR 00 07 07 01 28 21 EA 13 JA Ac YS 55 -0 -[address] 38 CK ti EL 59 6- 0- 00 SI 86 SO ve LE 04 20 20 DE N -2 95 09 09 WE 8 8 PH ND TA AR Y BL MA L ET CY OF CY NT HI AN A DI 00 07 07 00 2. 1 EA 13 RI Ac AZ 17 -2 -[address] 55 SH ti EP 23 0- 0- 0 SI 16 ER ve AM 92 20 20 DE 5 67 09 09 RI 0 PH CH MG AR AR MA D TA CY BL ET OF CY NT HI AN A WA 59 07 07 00 1. 1 EA 13 RO Ac SO 76 -1 -[address] 51 NE ti IN 25 6- 0- 0 SI 53 ve OS 00 20 20 DE BR TO 70 09 09 YA L 1 PH N 10 AR K 0 MA MC CY G TA OF BL CY ET NT HI AN A 00 07 07 00 30 5 EA 13 RI Ac 59 -2 -[address] 55 SH ti 10 0- 0- 00 SI 18 ER ve 34 20 20 DE 90 09 09 RI 1 PH CH AR AR MA D CY OF CY NT HI AN A 00 07 07 00 15 4 EA 13 JA Ac 40 -0 -[address] 39 CK ti 62 6- 6- 00 SI 16 SO ve 04 20 20 DE N 00 09 09 WE 1 PH ND AR Y MA L CY OF CY NT HI AN A CR 00 06 07 00 28 28 EA 13 JA Ac YS 55 -2 -[address] 31 CK ti EL 59 9- 6- 00 SI 24 SO ve LE 04 20 20 DE N -2 95 09 09 WE 8 8 PH ND TA AR Y BL MA L ET CY OF CY NT HI AN A CY 00 10 07 01 37 30 AC 16 PE Ac KL 01 -2 -0 0. CR 46 TE ti OK 31 1- 2- 00 ED 4 RS ve AP 11 20 20 0 O ON RO 41 08 09 HE N 0 AL ZHOU 10 TH SA 0 N MG GR M /M OU L P AM IN PU C L 00 06 06 00 30 7 EA 12 RI Ac 59 -0 -[address] 98 SH ti 10 2- 8- 00 SI 82 ER ve 34 20 20 DE 90 09 09 RI 1 PH CH AR AR MA D CY OF CY NT HI AN A IN 37 06 06 00 30 30 EA 12 RI Ac IL 00 -0 -[address] 98 SH ti OS 00 2- 8- 00 SI 81 ER ve EC 45 20 20 DE 50 09 09 RI OT 2 PH CH C AR AR 20 MA D .6 CY MG OF CY TA NT BL HI ET AN A JU 00 03 06 03 42 21 EA 12 WA Ac NE 55 -2 -[address] 04 DB ti L 59 4- 8- 00 SI 28 OE ve 1 02 20 20 DE -P MG 54 09 09 EN -2 2 PH N 0 AR PA MC MA ME G CY LA TA R BL OF ET CY NT HI AN A CE 00 06 06 00 30 30 EA 12 PE Ac LE 02 -0 -[address] 98 TE ti BR 51 2- 8- 00 SI 03 RS ve EX 52 20 20 DE ON 03 09 09 10 1 PH ZHOU 0 AR SA MG MA N CY M CA PS OF UL CY E NT HI AN A JU 00 03 06 02 42 21 EA 12 WA Ac NE 55 -2 -[address] 04 DB ti L 59 4- 4- 00 SI 28 OE ve 1 02 20 20 DE -P MG 54 09 09 EN -2 2 PH N 0 AR PA MC MA ME G CY LA TA R BL OF ET CY NT HI AN A JU 00 03 05 01 42 21 EA 12 WA Ac NE 55 -2 -[address] 04 DB ti L 59 4- 7- 00 SI 28 OE ve 1 02 20 20 DE -P MG 54 09 09 EN -2 2 PH N 0 AR PA MC MA ME G CY LA TA R BL OF ET CY NT HI AN A CY 00 04 04 00 20 7 EA 12 RI Ac CL 59 -0 -[address] 22 SH ti OB 13 6- 3- 00 SI 34 ER ve EN 25 20 20 DE ZA 60 09 09 RI IN 1 PH CH IN AR AR E MA D 5 CY MG OF TA CY BL NT ET HI AN A CY 00 08 04 00 36 10 AC 15 PE Ac KL 01 -1 -0 0. CR 51 TE ti OK 31 4- 9- 00 ED 2 RS ve AP 11 20 20 0 O ON RO 41 08 09 HE N 0 AL ZHOU 10 TH SA 0 N MG GR M /M OU L P AM IN PU C L JU 00 03 04 00 42 21 EA 12 WA Ac NE 55 -2 -[address] 04 DB ti L 59 4- 9- 00 SI 28 OE ve 1 02 20 20 DE -P MG 54 09 09 EN -2 2 PH N 0 AR PA MC MA ME G CY LA TA R BL OF ET CY NT HI AN A NE 61 03 04 00 5. 5 EA 12 HI Ac OM 31 -2 -[address] 10 NE ti YC 40 7- 9- 0 SI 03 S ve -P 63 20 20 DE BR OL 00 09 09 ET YM 6 PH T -D AR A EX MA AM CY ET H OF EY CY E NT DR HI OP AN A CE 00 03 04 00 36 9 EA 12 SH Ac PH 09 -2 -[address] 09 ti AL 33 7- 9- 00 SI 06 HY ve EX 14 20 20 DE IN 70 09 09 RO 5 PH NA 50 AR LD 0 MA G MG CY CA OF PS CY UL NT E HI AN A 00 03 04 00 20 4 EA 12 SH Ac 59 -2 -[address] 09 ti 10 7- 9- 00 SI 05 HY ve 38 20 20 DE 50 09 09 RO 1 PH NA AR LD MA G CY OF CY NT HI AN A CY 00 03 03 00 20 7 EA 12 RI Ac CL 59 -2 -[address] 00 SH ti OB 13 0- 6- 00 SI 30 ER ve EN 25 20 20 DE ZA 60 09 09 RI IN 1 PH CH IN AR AR E MA D 5 CY MG OF TA CY BL NT ET HI AN A AC 00 03 03 00 12 8 EA 11 RI Ac ET 12 -0 -[address] 81 SH ti AM 10 9- 6- 00 SI 11 ER ve IN 50 20 20 0 DE OP 41 09 09 RI -C 6 PH CH OD AR AR EI MA D NE CY 12 OF 0- CY 12 NT HI MG AN /5 A 00 03 03 00 20 5 EA 12 RI Ac 59 -2 -[address] 00 SH ti 10 0- 6- 00 SI 29 ER ve 34 20 20 DE 90 09 09 RI 1 PH CH AR AR MA D CY OF CY NT HI AN A AZ 00 03 03 00 6. 5 EA 11 RI Ac IT 09 -0 -[address] 81 SH ti HR 37 9- 6- 0 SI 09 ER ve OM 14 20 20 DE YC 61 09 09 RI IN 8 PH CH AR AR 25 MA D 0 CY MG OF TA CY BL NT ET HI AN A 60 03 03 00 18 7 EA 11 RI Ac 25 -0 -[address] 81 SH ti 80 9- 6- 00 SI 10 ER ve 23 20 20 0 DE 91 09 09 RI 6 PH CH AR AR MA D CY OF CY NT HI AN A 00 09 02 00 12 4 AC 15 PE Ac 05 -0 -2 16 CR 83 TE ti 37 4- 6- 8. ED 9 RS ve 61 20 20 00 O ON 52 08 09 0 HE 0 AL ZHOU TH SA N GR M OU P IN C 00 08 02 00 30 6 AC 15 PE Ac 05 -2 -2 24 CR 77 TE ti 37 9- 6- .0 ED 3 RS ve 61 20 20 00 O ON 50 08 09 HE 5 AL ZHOU TH SA N GR M OU P IN C 00 08 02 00 12 6 AC 15 PE Ac 05 -2 -2 16 CR 77 TE ti 37 9- 6- 8. ED 31 RS ve 61 20 20 00 O ON 52 08 09 0 HE 0 AL ZHOU TH SA N GR M OU P IN C 00 07 02 00 40 2 AC 14 RA Ac 05 -1 -2 52 CR 96 DU ti 37 4- 6- .0 ED 3 LE ve 61 20 20 00 O SC 52 08 09 HE U 0 AL VL TH AD C GR OU P IN C 00 07 02 00 76 4 AC 15 PE Ac 05 -2 -2 52 CR 18 TE ti 37 9- 6- .0 ED 3 RS ve 61 20 20 00 O ON 52 08 09 HE 0 AL ZHOU TH SA N GR M OU P IN C IN 00 12 01 00 30 8 CL 18 RI Ac OM 78 -0 -3 .0 IN 31 SH ti ET 11 3- 0- 00 IC 06 ER ve BUCKNER 83 20 20 ZI 01 08 09 PH RI NE 0 AR CH MA AR 25 CY D MG TA BL ET EPI 00 07 01 01 91 91 EA 98 PE Ac LE 55 -2 -[address] 87 TE ti SS 59 9- 5- 00 SI 42 RS ve A 12 20 20 DE ON 0. 36 08 09 15 6 PH ZHOU AR SA MG MA N -0 CY M .0 3 OF MG CY NT TA HI BL AN ET A AC 00 10 11 00 30 5 CL 18 No Ac ET 40 -2 -0 .0 IN 02 t ti AM 60 1- 7- 00 IC 29 Av ve IN 48 20 20 ai OP 41 08 08 PH la HE 0 AR bl N- MA e CO CY D #3 TA BL ET AZ 59 10 11 00 6. 5 RI 75 GA Ac IT 76 -1 -0 00 TE 44 IN ti HR 23 8- 7- 0 50 EY ve OM 06 20 20 AI YC 00 08 08 D WA IN 1 PH CH AR AE 25 M L 0 #3 S MG 93 8 TA BL ET CY 00 10 11 00 37 10 AC 16 PE Ac KL 01 -2 -0 0. CR 46 TE ti OK 31 1- 7- 00 ED 4 RS ve AP 11 20 20 0 O ON RO 41 08 08 HE N 0 AL ZHOU 10 TH SA 0 N MG GR M /M OU L P AM IN PU C L 57 10 10 00 90 30 CL 18 No Ac 66 -1 -2 .0 IN 00 t ti 40 6- 3- 00 IC 05 Av ve 21 20 20 ai 90 08 08 PH la 8 AR bl MA e CY SM 49 08 09 00 12 24 EA 99 No Ac 34 -2 -[address] 24 t ti AL 80 7- 1- 00 SI 47 Av ve L 84 20 20 0 DE ai DA 33 08 08 la Y 4 PH bl AL AR e LE MA RG CY Y 1 OF MG CY /M NT L HI SY AN R A 00 07 09 01 10 3 EA 98 No Ac 78 -3 -[address] 88 t ti 15 0- 1- 00 SI 85 Av ve 25 20 20 DE ai 83 08 08 la 3 PH bl AR e MA CY OF CY NT HI AN A 00 07 08 00 10 3 EA 98 No Ac 78 -3 -[address] 88 t ti 15 0- 4- 00 SI 85 Av ve 25 20 20 DE ai 83 08 08 la 3 PH bl AR e MA CY OF CY NT HI AN A EPI 00 07 08 00 91 91 EA 98 No Ac LE 55 -2 -[address] 87 t ti SS 59 9- 4- 00 SI 42 Av ve A 12 20 20 DE ai 0. 36 08 08 la 15 6 PH bl AR e MG MA -0 CY .0 3 OF MG CY NT TA HI BL AN ET A 57 04 08 01 50 16 CL 16 No Ac 66 -0 -0 .0 IN 84 t ti 40 8- 1- 00 IC 30 Av ve 21 20 20 ai 90 08 08 PH la 8 AR bl MA e CY 00 07 07 00 2. 30 AC 14 PE Ac 05 -0 -1 50 CR 83 TE ti 32 3- 7- 0 ED 6 RS ve 45 20 20 O ON 30 08 08 HE 0 AL ZHOU TH SA N GR M OU P IN C 57 04 04 00 50 16 CL 16 No Ac 66 -0 -2 .0 IN 84 t ti 40 8- 4- 00 IC 30 Av ve 21 20 20 ai 90 08 08 PH la 8 AR bl MA e CY AZ 50 03 04 00 6. 5 CL 16 No Ac IT 11 -2 -1 00 IN 74 t ti HR 10 2- 0- 0 IC 63 Av ve OM 78 20 20 ai YC 76 08 08 PH la IN 6 AR bl MA e 25 CY 0 MG TA BL ET IN 00 03 04 00 20 8 CL 16 No Ac OM 78 -2 -1 .0 IN 74 t ti ET 11 2- 0- 00 IC 62 Av ve BUCKNER 83 20 20 ai ZI 01 08 08 PH la NE 0 AR bl MA e 25 CY MG TA BL ET 66 03 04 00 11 8 CL 16 No Ac 99 -2 -1 8. IN 74 t ti 20 2- 0- 00 IC 61 Av ve 22 20 20 0 ai 00 08 08 PH la 4 AR bl MA e CY AM 61 02 03 00 53 7 AC 12 No Ac IN 74 -0 -2 2. CR 77 t ti OC 80 4- 6- 00 ED 4 Av ve AP 04 20 20 0 O ai RO 41 08 08 HE la IC 6 AL bl TH e AC ID GR OU 25 P % IN SO C BOBO TI ON 00 02 03 00 80 4 AC 12 No Ac 05 -0 -2 40 CR 76 t ti 37 4- 6- .0 ED 5 Av ve 61 20 20 00 O ai 52 08 08 HE la 0 AL bl TH e GR OU P IN C AC 00 01 03 00 60 3 CL 16 No Ac ET 12 -1 -2 .0 IN 28 t ti AM 10 6- 5- 00 IC 09 Av ve IN 50 20 20 ai OP 41 08 08 PH la -C 6 AR bl OD MA e EI CY NE 12 0- 12 MG /5 00 01 03 00 47 16 RI 71 No Ac 09 -2 -2 3. TE 60 t ti 30 1- 5- 00 62 Av ve 01 20 20 0 AI ai 41 08 08 D la 6 PH bl AR e M #3 93 8 Immunization Name Date Route CVX Reacti Commen Provid Is Given on t er Refuse d IIV3 DAKSHA No VACCIN 2010 [facility] 0.5 ML DOSAGE IM USE IIV3 DAKSHA No VACCIN 2010 [facility] 0.5 ML DOSAGE IM USE Procedures Procedure DOS Code Location Performer Comment [facility] [address] [place] [address] MEDICAL AFT CARE/DAY SERV [facility] [address] 4 IA DEPT JAM CARE/DAY OF 35 PEDIATRIC MINUTES INJECTION [id number] [facility] 4 PHYSICIAN PHYSICIAN CEFTRIAXO S GROUP S GROUP NE SODIUM PER 250 MG THERAPEUT 00671 [facility] IC 4 PHYSICIAN PHYSICIAN PROPHYLAC S GROUP S GROUP TIC/DX INJECTION SUBQ/IM CHIROPRAC 36433 DEANNE ALICEA TIC 3 GRA GRA MANIPULAT SONNY TX SPINAL 3-4 REGIONS BLOOD 90944 [facility] COUNT 3 Y Y COMPLETE [facility] AUTO&AUTO DIFRNTL WBC IRON 83747 [facility] BINDING 3 Y Y CAPACITY [facility] COLLECTIO 38865 [facility] N VENOUS 3 Y Y BLOOD [facility] VENIPUNCT URE INJECTION [id number] ELMO ELMO 2 MARCELINA MARCELINA PROMETHAZ INE HCL UP TO 50 MG URINLS 66359 ELMO ELMO DIP 2 MARCELINA MARCELINA STICK/TAB LET REAGNT NON-AUTO MICRSCPY THERAPEUT 68089 [facility] IC 2 MARCELINA MARCELINA PROPHYLAC TIC/DX INJECTION SUBQ/IM IAADIADOO 45583 A C A C 2 KRYSTAL RICE MD [place] [address] [facility] ABDOMEN & 1 N N [facility] W/O HOSPITA HOSPITA CONTRAST MATERIAL THER [address] [facility] PROPH/DX 1 N N NJX IV [facility] PUSH HOSPITA HOSPITA SINGLE/1S T SBST/[place] [address] [facility] INFUSION 1 N N HYDRATION [facility] EACH HOSPITA HOSPITA ADDITIONA L HOUR CULTURE [address] [facility] BACTERIAL 1 N N COMMUNITY [facility] QUANTTATI HOSPITA HOSPITA VE COLONY COUNT URINE URINE [address] [facility] 1 N N TEST [facility] VISUAL HOSPITA HOSPITA COLOR CMPRSN METHS THER [address] [facility] PROPH/DX 1 N N NJX EA [facility] SEQL IV HOSPITA HOSPITA PUSH SBST/DRUG FAC THERAPEUT [address] [facility] IC 1 N N INJECTION [facility] IV PUSH HOSPITA HOSPITA EACH NEW DRUG INJECTION J22[address] [facility] MORPHINE 1 N N SULFATE [facility] UP TO 10 HOSPITA HOSPITA MG COLLECTIO [address] [facility] N VENOUS 1 N N BLOOD [facility] VENIPUNCT HOSPITA HOSPITA URE INJECTION J24[address] [facility] 1 N N [facility] HCL [facility] HOSPITA PER 1 MG IIV3 [id number] [facility] TELLE[facility] VACCINE [address] [facility] CENTER VIRUS 0.5 ML DOSAGE IM USE BLOOD 20479 ROSALINDA TELLEZ COUNT 1 [facility] COMPLETE INC INC AUTO&AUTO DIFRNTL WBC RHEUMATOI 78328 ROSALINDA Paul FACTOR 1 [facility] QUANTITAT INC INC SONNY SEDIMENTA 54338 ROSALINDA TELLEZ TION RATE 1 [facility] RBC INC INC NON-AUTOM ATED MICROSOMA 21626 ROSALINDA TELLEZ L 1 [facility] ANTIBODIE INC INC S EACH ANTINUCLE 82714 ROSALINDA TELLEZ AR 1 [facility] [place] [address] ROSALINDA TELLEZ THYROXINE 1 [facility] TOTAL INC INC ANTIBODY 17383 ROSALINDA TELLEZ HELICOBAC 1 [facility] TER INC INC PYLORI C-REACTIV 79012 ROSALINDA TELLEZ E PROTEIN 1 [place] [address] [facility]ALINDA TELLE[facility] THYROID 1 [facility] STIMULATI INC INC NG HORMONE TSH COLLECTIO 06123 ROSALINDA TELLEZ N VENOUS 1 [facility] BLOOD INC INC VENIPUNCT URE WRIST L3908 JANE WALKERRELL HAND [facility] EXT EQUIPME EQUIPME CONTROL COCK-UP PREFAB RADEX 74009 ROSALINDA TELLEZ WRIST 1 [facility] COMPLETE INC INC MINIMUM 3 VIEWS THER 58334 [facility] PROPH/DX 1 Y Y NJX IV [facility] PUSH SINGLE/1S T SBST/DRUG RADEX 75147 [facility] WRIST 1 Y Y [facility] MINIMUM 3 VIEWS RADEX 87807 [facility] FOREARM 2 1 Y Y VIEWS [facility] INJ J7187 [facility] VONWILLEB 1 Y Y RND [facility] FACTOR CMPLX HUMN RISTOCETI N IU RADEX 57559 [facility] HAND 1 Y Y MINIMUM 3 HOSPITAL HOSPITAL VIEWS RADEX 86333 [facility] ELBOW 1 Y Y COMPLETE [facility] MINIMUM 3 VIEWS RADEX 24151 [facility] ANKLE 1 Y Y COMPLETE [facility] MINIMUM 3 VIEWS RADIOLOGI 26064 [facility] C 1 Y Y [facility] ON TIBIA & FIBULA 2 VIEWS RADIOLOGI 19668 [facility] 1 Y Y [facility] ON KNEE 3 VIEWS IADNA 48796 Aidee [facility] STREPTOCO 1 KRYSTAL MOBLEY MARCELINA CCUS PSC GROUP A QUANTIFIC ATION DETERMINA 09827 [facility] TION 1 WAR WAR REFRACTIV E STATE FRAMES V2020 [facility] PURCHASES 1 VISION OPHTH 86218 [facility] 1 WAR WAR XM&EVAL COMPRE NEW PT 1/> VST RPR&REFIT 32307 [facility] G 1 VISION SPECTACLE S EXCEPT APHAKIA SPHERE V2300 [facility] TRIFOCAL 1 VISION PLANO OR +/-4.00D PER LENS IIV3 58019 [facility] VACCINE 0 [facility] VIRUS 0.5 ML DOSAGE IM USE THERAPEUT 98426 [facility] IC [facility] [place] [address] [facility] INFUS[facility] THERAPY/P INC INC ROPHYLAXI S /DX 1ST TO 1 [place] [address] [facility] INFUSION 0 [facility] THERAPY INC INC PROPHYLAX IS/DX EA HOUR 3D 46868 [facility] RENDERING 0 [facility] W/INTERP& POSTPROC DIFF WORK STATION CT PELVIS 05081 [facility] W/O 0 [facility] CONTRAST INC INC MATERIAL URINE 63236 [facility] 0 [facility] TEST INC [place] [address] [facility] INFUSION 0 [facility] THERAPY INC INC PROPHYLAX [place] [address] [facility] LIPASE 0 [place] [address] [facility] ABDOMEN 0 [facility] W/[place] [address] [facility] AMYLASE 0 [facility] INC INC COMPREHEN 86810 ROS[facility] CROOKSON SIVE 0 [facility] METABOLIC INC INC PANEL THERAPEUT 57738 [facility] IC 0 [facility] INJECTION INC INC IV PUSH EACH NEW DRUG URNLS DIP 45888 [facility] 0 [facility] STICK/TAB INC INC LET REAGENT AUTO MICROSCOP Y BLOOD 96380 [facility] COUNT 0 [facility] COMPLETE INC INC AUTO&AUTO DIFRNTL WBC RADEX 95028 [place] [facility] FOOT 0 [facility] COMPLETE IMAGING MINIMUM 3 ASS VIEWS RADIOLOGI 65390 [facility] C 0 [facility] EXAMINATI IMAGING ON KNEE ASS 1/2 VIEWS RADIOLOGI 31581 [place] [facility] C 0 [facility] EXAMINATI IMAGING ON KNEE 3 ASS VIEWS ECG 92748 [facility] ROUTINE 0 Y Y ECG [facility] W/LEAST 12 LDS TRCG ONLY W/O I&R THER 75206 [facility] PROPH/DX 0 Y [facility] PUSH SINGLE/1S T SBST/DRUG ARTERIAL 36708 [facility] PUNCTURE 0 Y Y WITHDRAWA [facility] L BLOOD DX GASES 42046 [facility] BLOOD PH 0 Y Y DIRECT [facility] [place] [address] [facility] INFUSION 0 Y Y HYDRATION [facility] EACH ADDITIONA L HOUR THERAPEUT 07815 [facility] IC 0 [facility] INJECTION [place] [address] [facility] INFUSION 0 [facility] THERAPY/P INC INC ROPHYLAXI S /DX 1ST TO 1 HR HEPATBL 66817 [facility] DUX SYS 0 [facility] IMG INC INC GLBLDR THER 94777 [facility]AL[facility] PROPH/DX 0 [facility] NJX IV INC INC PUSH SINGLE/1S T SBST/[place] [address] [facility] ABDOMINAL 0 [facility] REAL INC INC TIME W/IMAGE LIMITED THERAPEUT 21046 [facility] IC 0 [facility] INJECTION INC INC IV PUSH EACH NEW DRUG URNLS DIP 85170 ROSALINDA TELLEZ 0 [facility] STICK/TAB INC INC LET REAGENT AUTO MICROSCOP Y BLOOD 99680 ROSALINDA TELLEZ COUNT 0 [facility] COMPLETE INC INC AUTO&[place] [address] ROSALINDA ROSALINDA INFUSION 0 [facility] THER INC INC PROPH ADDL SEQUENTIA L [place] 1 [place] [address] ROSALINDA TELLEZ INFUSION 0 [facility] [place] [place] THERAPY/P INC INC ROPHYLAXI S /DX 1ST TO 1 HR OBSERVATI 37750 Aidee BORREGO ON/INPATI 0 KRYSTAL MOBLEY [facility] ENT [facility] CARE 40 MINUTES HOSPITAL [id number] ROSALINDA TELLEZ OBSERVATI 0 [facility] [place] [place] [place] [facility] [place] [address] ROSALINDA TELLEZ AMYLASE 0 [facility] INC INC COMPREHEN 94932 ROSALINDA TELLEZ SIVE 0 [facility] METABOLIC INC INC PANEL COLLECTIO 23242 ROSALINDA TELLEZ N VENOUS 0 [facility] HOSP [place]LOOD [place] [address] ROSALINDA TELLEZ LIPASE 0 [facility] [place] [place] INC INC URINE 50815 ROSALINDA TELLEZ 0 [facility] TEST INC INC VISUAL COLOR CMPRSN METHS BASIC 72891 ROSALINDA TELLEZ METABOLIC 0 [facility] PANEL INC INC CALCIUM TOTAL 3D 85243 ROSALINDA TELLEZ RENDERING 0 [facility] INC INC W/INTERP& POSTPROC DIFF WORK STATION CT PELVIS 68243 ROSALINDA TELLEZ W/O 0 [facility] [place] [place] [address] ROSALINDA TELLEZ ABDOMEN 0 [facility] [place] [place] W/O INC INC CONTRAST MATERIAL IADNA 59624 Aidee BORREGO, STREPTOCO 0 KRYSTAL MOORE [facility] GROUP A QUANTIFIC ATION RADEX 11867 DANIELA MEREDITH 0 BYRON LINCOLN MINIMUM 2 IMAGING VIEWS ASSOCIATE S FUNDUS 24983 ALINE ESTRADA PHOTOGRAP 0 VISION HY W/INTERPR ETATION & REPORT OPHTH 66964 ALINE ESTRADA MEDICAL 0 VISION XM&EVAL COMPRHNSV ESTAB PT 1/> BLOOD 89558 Aidee BORREGO, COUNT 0 KRYSTAL MOORE COMPLETE PSC AUTO&AUTO DIFRNTL WBC SUBMUCOUS 28552 SANJAY GRACE RESCJ 0 [place] INFERIOR TURBINATE PRTL/COMP L SEPTOPLAS 19440 SANJAY GRACE TY/SUBMUC 0 [place] OUS RESECJ W/WO CARTILAGE GRF ANESTHESI 33342 [place] ZIEMBROSK A NOSE & 0 ANESTHESI I JR, ACCESSORY A GROUP EDWARD J SINUSES PSC NOS OTHER [address] [facility] TURBINECT 0 N N [facility] CLOSED [address] [facility] REDUCTION 0 N N OF NASAL [facility]PITAL OTHER [address] [facility] SEPTOPLAS 0 N N TY [facility] CHIROPRAC 00694 DEANNE ALICEA, TIC 9 BREN W BREN W MANIPULAT [place] SPINAL 3-[place] [address] DEANNE ALICEA, 1/> AREAS 9 BREN W BREN W EACH 15 MINUTES MASSAGE APPLICATI 24745 DEANNE ALICEA, ON 9 BREN W BREN W MODALITY 1/> AREAS HOT/COLD PACKS APPL 96110 DEANNE ALICEA, MODALITY 9 BREN W BREN W 1/> AREAS ELEC STIMJ EA 15 MIN APPL 49819 DEANNE ALICEA, MODALITY 9 BREN W BREN W 1/> AREAS TRACTION MECHANICA L APPL 43888 DEANNE ALICEA, MODALITY 9 BREN W BREN W 1/> AREAS ELE[place] [address] [place] [address] DEANNE ALICEA, 1/> AREAS 9 BREN W BREN W EACH 15 MINUTES MASSAGE APPLICATI 72401 DEANNE ALICEA, ON 9 BREN W BREN W MODALITY 1/> AREAS HOT/COLD PACKS CHIROPRAC 08744 DEANNE ALICEA, TIC 9 BREN W BREN W MANIPULAT [place] SPINAL 3-4 REGIONS APPL 53423 DEANNE ALICEA, MODALITY 9 BREN W BREN W 1/> [place] [address] DEANNE ALICEA, 1/> AREAS 9 BREN W BREN W EACH 15 MINUTES MASSAGE CHIROPRAC 56178 DEANNE ALICEA, TIC 9 BREN W BREN W MANIPULAT [place] SPINAL 3-4 REGIONS APPLICATI 16015 DEANNE ALICEA, ON 9 BREN W BREN W MODALITY 1/> AREAS HOT/COLD PACKS APPL 48661 DEANNE ALICEA, MODALITY 9 BREN W BREN W 1/> AREAS ELEC STIMJ EA 15 MIN APPL 33650 DEANNE ALICEA, MODALITY 9 BREN W BREN W 1/> AREAS TRACTION MECHANICA L COLLECTIO 88407 Aidee BORREGO, N VENOUS [address] [facility] BLOOD [facility] VENIPUNCT URE RADEX 46803 ROSALINDA TELLEZ FINGR 9 [facility] MINIMUM 2 INC INC VIEWS APPL 23602 DEANNE ALICEA, MODALITY 9 BREN W BREN W 1/> [place] [address] DEANNE ALICEA, 1/> AREAS 9 BREN W BREN W EACH 15 MINUTES MASSAGE CHIROPRA 51281 DEANNE ALICEA, TIC 9 BREN W BREN W MANIPULAT [place] SPINAL 3-4 REGIONS APPL 90165 DEANNE ALICEA, MODALITY 9 BREN W BREN W 1/> AREAS ELEC STIMJ EA 15 MIN APPL 12877 DEANNE ALICEA, MODALITY 9 BREN W BREN W 1/> AREAS ELEC STIMJ EA 15 MIN APPL 80839 DEANNE ALICEA, MODALITY 9 BREN W BREN W 1/> AREAS TRACTION MECHANICA L APPLICATI 07316 DEANNE ALICEA, ON 9 BREN W BREN W MODALITY 1/> AREAS HOT/COLD PACKS CHIROPRAC 97465 DEANNE ALICEA, TIC 9 BREN W BREN W MANIPULAT [place] SPINAL 3-[address] [place] [address] DEANNE DEANNE, 1/> AREAS 9 BREN W BREN W EACH [place] [address] DEANNE DEANNE, 1/> AREAS 9 BREN W BREN W EACH 15 MINUTES MASSAGE CHIROPRAC 01476 DEANNE ALICEA, TIC 9 BREN W BREN W MANIPULAT S[place] SPINAL 3-4 REGIONS APPL 09012 DEANNE ALICEA, MODALITY 9 BREN W BREN W 1/> AREAS TRACTION MECHANICA L APPLICATI 09230 DEANNE DEANNE, ON 9 BREN W BREN W MODALITY 1/> AREAS HOT/COLD PACKS APPL 34631 DEANNE ALICEA, MODALITY 9 BREN W BREN W 1/> AREAS ELEC STIMJ EA 15 MIN CHIROPRAC 66489 DEANNE ALICEA, TIC 9 BREN W BREN W MANIPULAT S[place] SPINAL 3-4 REGIONS APPLICATI 67765 DEANNE ALICEA, ON 9 BREN W BREN W MODALITY 1/> AREAS H[place] [address] DEANNE ALICEA, 1/> AREAS 9 BREN W BREN W EACH 15 MINUTES MASSAGE APPL 28212 DEANNE ALICEA, MODALITY 9 BREN W BREN W 1/> AREAS ELEC STIMJ EA 15 MIN FRAMES V2020 ALINE NOVAK, PURCHASES 9 VISION MARGARITA M OPHTH 25369 ALINE NOVAK, MEDICAL 9 VISION MARGARITA M XM&EVAL COMPRHNSV ESTAB PT 1/> SPHERE V2100 ALINE NOVAK, SINGLE 9 VISION MARGARITA M VISION PLAN[place] +/- 4.00 [place] [address] DEANNE ALICEA, 1/> AREAS 9 BREN W BREN W EACH 15 MINUTES MASSAGE CHIROPRAC 50122 DEANNE ALICEA, TIC 9 BREN W BREN W MANIPULAT [place] SPINAL 3-4 REGIONS APPL 42110 DEANNE ALICEA, MODALITY 9 BREN W BREN W 1/> [place] [address] DEANNE ALICEA, 1/> AREAS 9 BREN W BREN W EACH 15 MINUTES MASSAGE CHIROPRAC 09113 DEANNE ALICEA, TIC 9 BREN W BREN W MANIPULAT [place] SPINAL 3-4 REGIONS APPL 02751 DEANNE ALICEA, MODALITY 9 BREN W BREN W 1/> AREAS ELEC STIMJ EA 15 MIN APPL 82182 DEANNE ALICEA, MODALITY 9 BREN W BREN W 1/> AREAS TRACTION MECHANICA L APPLICATI 85999 DEANNE ALICEA, ON 9 BREN W BREN W MODALITY 1/> AREAS HOT/COLD PACKS APPL 94898 DEANNE ALICEA, MODALITY 9 BREN W BREN W 1/> [place] [address] DEANNE ALICEA, 1/> AREAS 9 BREN W BREN W EACH 15 MINUTES MASSAGE APPLICATI 22785 DEANNE ALICEA, ON 9 BREN W BREN W MODALITY 1/> AREAS HOT/COLD PACKS APPL 45889 DEANNE ALICEA, MODALITY 9 BREN W BREN W 1/> AREAS ELEC STIMJ EA 15 MIN CHIROPRAC 81934 DEANNE ALICEA, TIC 9 BREN W BREN W MANIPULAT [place] SPINAL 3-[address] [place] [address] DEANNE ALICEA, 1/> AREAS 9 BREN W BREN W EACH 15 MINUTES MASSAGE APPL 72229 DEANNE ALICEA, MODALITY 9 BREN W BREN W 1/> AREAS TRACTION MECHANICA L APPLICATI 78946 DEANNE ALICEA, ON 9 BREN W BREN W MODALITY 1/> AREAS HOT/COLD PACKS CHIROPRAC 95136 DEANNE ALICEA, TIC 9 BREN W BREN W MANIPULAT S[place] SPINAL 3-4 REGIONS APPL 66789 DEANNE ALICEA, MODALITY 9 BREN W BREN W 1/> AREAS ELEC STIMJ EA 15 MIN APPL 81865 DEANNE ALICEA, MODALITY 9 BREN W BREN W 1/> AREAS ELEC STIMJ EA 15 MIN APPL 32708 DEANNE ALICEA, MODALITY 9 BREN W BREN W 1/> AREAS TRACTION MECHANICA L CHIROPRAC 62842 DEANNE ALICEA, TIC 9 BREN W BREN W MANIPULAT SONNY [place] SPINAL 3-4 REGIONS APPLICATI 28372 DEANNE ALICEA, ON 9 BREN W BREN W MODALITY 1/> AREAS [place] [address] DEANNE ALICEA, 1/> AREAS 9 BREN W BREN W EACH 15 MINUTES MASSAGE SELF-CARE 57214 DEANNE ALICEA, /HOME 9 BREN W BREN W MGMT TRAINING EACH 15 MINUTES APPL 34946 DEANNE ALICEA, MODALITY 9 BREN W BREN W 1/> AREAS TRACTION MECHANICA L APPLICATI 54322 DEANNE ALICEA, ON 9 BREN W BREN W MODALITY 1/> AREAS HOT/COLD PACKS RADEX 69036 DEANNE DEANNE, SPINE 9 BREN W BREN W CERVICAL 2 OR 3 VIEWS RADEX 39842 DEANNE DEANNE, SPINE 9 BREN W BREN W THORACIC 2 VIEWS APPL 75272 DEANNE ALICEA, MODALITY 9 BREN W BREN W 1/> AREAS ELEC STIM[place] [address] DEANNE ALICEA, 1/> AREAS 9 BREN W BREN W EACH 15 MINUTES MASSAGE APPL 59815 SHAHNAZ, SHAHNAZ, MODALITY 9 TAMI GARRETT 1/> AREAS ER ER ULTRASOUN D EA 15 MIN APPL 10434 SHAHNAZ, SHAHNAZ, MODALITY 9 TAMI GARRETT 1/> AREAS ER ER ELEC STIMJ UNATTENDE D CHIROPRAC 47674 SHAHNAZ, SHAHNAZ, TIC 9 TAMI TAMI MANIPULAT ER ER SONNY [place] SPINAL 1-2 REGIONS APPL 45365 SHAHNAZ, SHAHNAZ, MODALITY 9 TAMI TAMI 1/> AREAS ER ER ELEC STIMJ UNATTENDE D APPL 56699 SHAHNAZ, SHAHNAZ, MODALITY 9 TAMI TAMI 1/> AREAS ER ER ULTRASOUN D EA 15 MIN THERAPEUT 62444 SHAHNAZ, SHAHNAZ, IC PX 1/> 9 TAMI TAMI AREAS ER ER EACH 15 MIN EXERCISES CHIROPRAC 03097 SHAHNAZ, SHAHNAZ, TIC 9 TAMI TAMI MANIPULAT ER ER SONNY [place] SPINAL 1-2 REGIONS CHIROPRAC 46471 SHAHNAZ, SHAHNAZ, TIC 9 TAMI TAMI MANIPULAT ER ER SONNY [place] SPINAL 1-2 REGIONS APPL 12378 SHAHNAZ, SHAHNAZ, MODALITY 9 TAMI TAMI 1/> AREAS ER ER ELEC STIMJ UNATTENDE D APPL 64221 SHAHNAZ, SHAHNAZ, MODALITY 9 TAMI TAMI 1/> AREAS ER ER ULTRASOUN D EA 15 MIN CHIROPRAC 44365 SHAHNAZ, SHAHNAZ, TIC 9 TAMI TAMI MANIPULAT ER ER SONNY [place] SPINAL 1-2 REGIONS SBSQ 11583 [facility] 9 N FAMILY NAN D CARE/DAY PHYS PSC 35 MINUTES CLOSED 48221 SANJAY GRACE, TREATMENT 9 SHERI Novak NASAL FRACTURE W/[place] [address] ROSALINDA TELLEZ HEAD/BRAI 9 [facility] N W/O INC INC CONTRAST MATERIAL 3D 78691 ROSALINDA TELLEZ RENDERING 9 [facility] W/INTERP INC INC & POSTPROCE SS SUPERVISI ON RADEX 98940 ALONSO READ, ORBITS 9 MEDICAL [place] COMPLETE IMAGING MINIMUM 4 ASSOCIATE VIEWS S CLOSED 23330 SANJAY GRACE, TREATMENT 9 SHERI Novak NASAL FRACTURE W/O MANIPULAT ION RADEX 08841 [place] JACEK, NASAL 9 MEDICAL [place] BONES IMAGING COMPLETE ASSOCIATE MINIMUM 3 S VIEWS IAADI 38522 ROSALINDA TELLEZ INFLUENZA 8 [facility] B VIRUS INC INC IMMUNOASS 63398 ROSALINDA TELLEZ AY NFCT 8 [facility] AGT ANTB INC INC QUAL/SEMI [place] 1 [place] [address] ROSALINDA TELLEZ STREPTOCO 8 [facility] CCUS INC INC GROUP A THER 20369 ROSALINDA TELLEZ PROPH/DX 8 [facility] NJX EA INC INC SEQL IV PUSH SBST/DRUG BLOOD 74562 ROSALINDA TELLEZ COUNT 8 [facility] COMPLETE INC INC AUTO&AUTO DIFRNTL WBC IAADI 91277 ROSALINDA TELLEZ INFFLUENZ 8 [facility] A A VIRUS INC INC URNLS DIP 60481 ROSALINDA TELLEZ 8 [facility] STICK/TAB INC INC LET REAGENT AUTO MICROSCOP Y BASIC 16375 ROSALINDA TELLEZ METABOLIC 8 [facility] PANEL INC INC CALCIUM TOTAL SPHERE V2100 NALLELY BROWNING, SINGLE 8 ALEKSANDR V ALEKSANDR V VISION PLANO +/- 4.00 PER LENS FITTING 67634 NALLELY BROWNING, SPECTACLE 8 ALEKSANDR BRANDON V S XCPT APHAKIA MONOFOCAL FRAMES V2020 NALLELY BROWNING, PURCHASES 8 ALEKSANDR Kimmie BRANDON V OPHTH 00994 NALLELY BROWNING, MEDICAL 8 ALEKSANDR V ALEKSANDR V XM&EVAL COMPRHNSV ESTAB PT 1/> THER 18134 ROSALINDA TELLEZ PROPH/DX 8 [facility] NJX IV INC INC PUSH 1ST SBST/DRUG URNLS DIP 49733 ROSALINDA TELLEZ 8 [facility] STICK/TAB INC INC LET REAGENT AUTO MICROSCOP Y RADEX 01846 ALONSO NJLEY, ANKLE 8 MEDICAL JEREMY P COMPLETE IMAGING MINIMUM 3 ASSOCIATE VIEWS S RADEX 04226 ROSALINDA TELLEZ FOOT 8 [facility] COMPLETE INC INC MINIMUM 3 VIEWS RADIOLOGI 00939 ROSALINDA ROSALINDA C 8 [facility] EXAMINATI INC INC ON ANKLE 2 VIEWS Encounters Encounter Start End Date Code Location Performer Type Date OFFICE 80553 CAROLINE VELAZQUEZ OUTPATIEN 4 4 FAB FAB T VISIT 15 MINUTES OFFICE 40891 [facility] OUTPATIEN 4 4 PHYSICIAN T NEW 20 S GROUP MINUTES [facility] 26378 KANE MIDDLETON OUTPATIEN 3 3 KARTHIK KARTHIK T VISIT 15 MINUTES OFFICE 68710 JOHANA VAUGHN NATALIE OUTPATIEN 2 2 T VISIT 10 MINUTES OFFICE 81708 ROSALINDA TELLEZ OUTPATIEN 2 2 [facility] 10 MINUTES OFFICE 51635 ELMO ELMO OUTPATIEN 2 2 MARCELINA MARCELINA T VISIT 15 MINUTES OFFICE 47037 A C OUTPATIEN 2 2 KRYSTAL MOBLEY T VISIT PSC 15 MINUTES OFFICE 24072 ELMO ELMO OUTPATIEN 1 1 MARCELINA MARCELINA T VISIT 15 MINUTES OFFICE 62782 ELMO ELMO OUTPATIEN 1 1 MARCELINA MARCELINA T VISIT 15 MINUTES EMERGENCY 84901 [facility] 1 1 N [facility] T VIS[facility] HIGH/URGE NT [facility] 1 1 N OUTPATIEN COMMUNITY T [facility] HOSPITAL ROSALINDA - 1 1 [facility] OUTPATIEN INC T OFFICE 26884 ROSALINDA TELLEZ OUTPATIEN 1 1 [facility] 10 MINUTES OFFICE 04551 [facility]TE[place] OUTPATIEN 1 1 PHYSICIAN JAM T NEW 20 S GROUP MINUTES HOSPITAL ROSALINDA - 1 1 [facility] OUTPATIEN INC T EMERGENCY 41912 [facility] 1 1 Y [facility] T VISIT HIGH/URGE NT SEVERITY [facility] 18772 ROSALINDA ROSALINDA OUTPATIEN 1 1 [facility] 15 MINUTES OFFICE 46859 ROSALINDA ROSALINDA OUTPATIEN 1 1 [facility] 10 MINUTES OFFICE 21862 ROSALINDA ROSALINDA OUTPATIEN 1 1 [facility] 10 MINUTES OFFICE 76471 ROSALINDA ROSALINDA OUTPATIEN 1 1 [facility] 10 MINUTES OFFICE 10824 A C ELMO OUTPATIEN 1 1 KRYSTAL MOBLEY MARCELINA T VISIT PSC 15 MINUTES OFFICE 53118 ROSALINDA TELLEZ OUTPATIEN 1 1 [facility] 10 MINUTES OFFICE 87971 ROSALINDA TELLEZ OUTPATIEN 1 1 [facility] 10 MINUTES OFFICE 02049 ROSALINDA TELLEZ OUTPATIEN 1 1 [facility]ENC[facility] 40485 UNIVERSIT 1 1 Y [facility] T VISIT MODERATE SEVERITY OFFICE 34121 [facility] KANE OUTPATIEN 1 1 NURSE KARTHIK T VISIT PRACTITIO 15 NER GR MINUTES OFFICE 98369 A C ELMO OUTPATIEN 1 1 KRYSTAL MOBLEY MARCELINA T VISIT PSC 15 MINUTES OFFICE 74456 ROSALINDA TELLEZ OUTPATIEN 1 1 [facility] 10 MINUTES OFFICE 38984 ROSALINDA TELLEZ OUTPATIEN 1 1 [facility] 10 MINUTES OFFICE 33351 A C ELMO OUTPATIEN 1 1 KRYSTAL MOBLEY MARCELINA T VISIT PSC 15 MINUTES OFFICE 21327 ROSALINDA TELLEZ OUTPATIEN 1 1 [facility] 10 MINUTES OFFICE 68074 ROSAILNDA TELLEZ OUTPATIEN 1 1 [facility] T VISIT 5 [facility] MINUTES OFFICE 74130 ROSALINDA TELLEZ OUTPATIEN 1 1 [facility] 15 MINUTES OFFICE 27560 ROSALINDA TELLEZ OUTPATIEN 1 1 [facility] 10 MINUTES OFFICE 00987 ROSALINDA TELLEZ OUTPATIEN 1 1 [facility] 10 MINUTES OFFICE 39869 [facility] [place] OUTPATIEN 1 1 NURSE T MARTINEZ T VISIT PRACTITIO 15 NER GR MINUTES OFFICE 08961 ROSALINDA CROOKSON OUTPATIEN 1 1 [facility] 10 MINUTES OFFICE 65506 A C OUTPATIEN 1 1 KRYSTAL MOBLEY T VISIT 5 PSC MINUTES OFFICE 93468 ROSALINDA ROSALINDA OUTPATIEN 0 0 [facility] 15 MINUTES OFFICE 40141 A C ELMO OUTPATIEN 0 0 KRYSTAL HEWITT T VISIT PSC 15 MINUTES OFFICE 86059 ROSALINDA TELLEZ OUTPATIEN 0 0 [facility] 15 MINUTES OFFICE 84580 A C OUTPATIEN 0 0 KRYSTAL MOBLEY T VISIT 5 PSC MINUTES OFFICE 54054 ANDREA COPPOLA OUTPATIEN 0 0 MEDICAL RONALDO T VISIT SERV 15 FOUNDATIO MINUTES OFFICE 31573 ROSALINDA TELLEZ OUTPATIEN 0 0 [facility] 10 MINUTES OFFICE 10650 [place] EVELYN ALI CONSULTAT 0 0 MEDICAL ION SERV NEW/ESTAB FOUNDATIO PATIENT 60 MIN OFFICE 87972 A C ELMO OUTPATIEN 0 0 KRYSTAL HEWITT T VISIT PSC 15 MINUTES HOSPITAL [facility]DA - [facility] EMERGENCY 46429 [facility] 0 [facility] [place] [place] VISIT HIGH/URGE NT SEVERITY OFFICE 02518 A C ELMO OUTPATIEN 0 0 KRYSTAL HEWITT T VISIT PSC 15 MINUTES OFFICE 38746 [facility] OUTPATIEN 0 0 NURSE T MARTINEZ T VISIT PRACTITIO 25 NER GR MINUTES OFFICE 55525 A C ELMO OUTPATIEN 0 0 KRYSTAL HEWITT T VISIT 5 PSC MINUTES OFFICE 37133 [place] FLOMENHOF CONSULTAT 0 0 MEDICAL T MARTINEZ ION SERV NEW/ESTAB FOUNDATIO PATIENT 60 MIN HOSPITAL UNIVERSIT - 0 0 Y [facility] T EMERGENCY 58092 UNIVERSIT 0 0 [facility] T VISIT HIGH/URGE NT SEVERITY EMERGENCY 43579 ROSALINDA 0 0 [facility] [place] [facility] VISIT MODERATE SEVERITY HOSPITAL ROSALINDA - 0 0 [facility] [place] 22305 [place] RADULESCU OUTPATIEN 0 0 MEDICAL VLA T VISIT SERV 15 FOUNDATIO MINUTES HOSPITAL ROSALINDA - 0 0 [facility] T OFFICE 15015 A C OUTPATIEN 0 0 KRYSTAL MOBLEY T VISIT 5 PSC MINUTES OFFICE 75667 A C ELMO OUTPATIEN 0 0 KRYSTAL HEWITT T VISIT PSC 15 MINUTES EMERGENCY 17754 ROSALINDA [address] [facility] T VISIT HIGH/URGE NT SEVERITY HOSPITAL ROSALINDA - 0 0 [facility] OUTPATIEN INC T OFFICE 42552 A C OUTPATIEN 0 0 KRYSTAL MOBLEY T VISIT PSC 15 MINUTES OFFICE 70505 A C ELMO, OUTPATIEN 0 0 KRYSTAL MOORE T VISIT PSC 15 MINUTES OFFICE 70682 A C ELMO, OUTPATIEN 0 0 KRYSTAL MOORE T VISIT 5 PSC MINUTES OFFICE 36334 A C ELMO, OUTPATIEN 0 0 KRYSTAL MOORE T VISIT PSC 15 MINUTES HOSPITAL ROSALINDA - 0 0 [facility] [place] [facility] OUTPATIEN INC T OFFICE 14178 A C ELMO, OUTPATIEN 0 0 KRYSTAL MOORE T VISIT 5 PSC MINUTES OFFICE 41443 A C ELMO, OUTPATIEN 0 0 KRYSTAL MOORE T VISIT PSC 15 MINUTES OFFICE 08992 A C ELMO, OUTPATIEN 0 0 KRYSTAL MOORE T VISIT 5 PSC MINUTES OFFICE 28939 A C ELMO, OUTPATIEN 0 0 KRYSTAL MOORE T VISIT 5 PSC MINUTES OFFICE 16639 ANDREA COPPOLA OUTPATIEN 0 0 MEDICAL DEVIN L T VISIT SERV 10 FOUNDATIO MINUTES OFFICE 42051 A C ELMO, OUTPATIEN 0 0 KRYSTAL MOORE T VISIT 5 PSC MINUTES HOSPITAL [facility] - 0 0 [facility] OFFICE 65239 SANJAY GRACE OUTPATIEN 0 0 [place] MONTERO T VISIT 25 MINUTES OFFICE 14867 A C ELMO, OUTPATIEN 0 0 KRYSTAL MOORE T VISIT 5 PSC MINUTES OFFICE 87762 ANDREA COPPOLA OUTPATIEN 0 0 MEDICAL DEVIN L T VISIT SERV 10 FOUNDATIO MINUTES OFFICE 64522 A C ELMO, OUTPATIEN 0 0 KRYSTAL MOORE T VISIT PSC 15 MINUTES OFFICE 87598 A C ELMO, OUTPATIEN 0 0 KRYSTAL MOORE T VISIT PSC 15 MINUTES OFFICE 15460 A C ELMO, OUTPATIEN 9 9 KRYSTAL MOORE T VISIT PSC 15 MINUTES OFFICE 28562 A C ELMO, OUTPATIEN 9 9 KRYSTAL MOORE T VISIT PSC 15 MINUTES OFFICE 69181 ALINE NOVAK OUTPATIEN 9 9 VISION MARGARITA Howe T VISIT 10 MINUTES OFFICE 77151 ANDREA COPPOLA OUTPATIEN 9 9 MEDICAL DEVIN L T VISIT SERV 10 FOUNDATIO MINUTES OFFICE 75406 A C ELMO, OUTPATIEN 9 9 KRYSTAL MOORE T VISIT PSC 15 MINUTES OFFICE 83226 ANDREA COPPOLA OUTPATIEN 9 9 MEDICAL DEVIN L T NEW 30 SERV MINUTES FOUNDATIO OFFICE 39860 A C ELMO, OUTPATIEN 9 9 KRYSTAL MOORE T VISIT 5 PSC MINUTES HOSPITAL ROSALINDA - 9 9 [facility] OUT[facility] T EMERGENCY 65404 ROSALINDA 9 9 [facility] DEPARTMEN INC T VISIT MODERATE SEVERITY OFFICE 59043 ANDREA MIDBOE-PE OUTPATIEN 9 9 MEDICAL NN, T VISIT SERV RENNY R 15 FOUNDATIO MINUTES OFFICE 97110 A C ELMO, OUTPATIEN 9 9 KRYSTAL MOORE T VISIT PSC 15 MINUTES PERIODIC 65688 A C ELMO, PREVENTIV 9 9 KRYSTAL MOORE E MED EST PSC PATIENT 12-17YRS OFFICE 47939 DEANNE ALICEA, OUTPATIEN 9 9 BREN Dash T VISIT 10 MINUTES OFFICE 05674 SHAHNAZ CHRISTIE, OUTPATIEN 9 9 TAMI GARRETT T VISIT ER ER 15 MINUTES OFFICE 56491 SANJAY GRACE OUTPATIEN 9 9 SHERI WADE Scarlet T VISIT 25 MINUTES OFFICE 72813 ALINE NOVAK OUTPATIEN 9 9 VISION MARGARITA Howe T VISIT 15 MINUTES HOSPITAL ROSALINDA - 9 9 [facility] OUTPATIEN INC T OFFICE 50630 Aidee BORREGO OUTPATIEN 9 9 KRYSTAL MOORE T VISIT PSC 25 MINUTES OFFICE 42360 SANJAY GRACE, CONSULTAT 9 9 SHERI Novak ION NEW/ESTAB PATIENT 40 MIN OFFICE 49512 Aidee BORREGO OUTPATIEN 9 9 KRYSTAL MOORE T VISIT PSC 15 MINUTES OFFICE 79012 [facility] OUT[facility] 8 8 HEALTH T VISIT CENTRAL ELEMENTAR 15 BANK ACCT Y SCHOOL MINUTES HEALTH NURSE OFFICE 36420 [facility] OUT[facility] 8 8 HEALTH T VISIT CENTRAL ELEMENTAR 15 BANK ACCT Y SCHOOL MINUTES HEALTH NURSE EMERGENCY 53295 ROSALINDA 8 8 [facility] DEPARTMEN INC T VISIT HIGH/URGE NT SEVERITY [facility]OSPITAL [facility]INDA - 8 8 [facility] OUT[facility] T OFFICE 10720 [facility] 8 8 HEALTH T VISIT CENTRAL ELEMENTAR 15 BANK ACCT Y SCHOOL MINUTES HEALTH NURSE OFFICE 63049 [facility] OUT[facility] 8 8 HEALTH T NEW 10 CENTRAL ELEMENTAR MINUTES BANK ACCT Y SCHOOL HEALTH NURSE OFFICE 53220 RAD[facility]ES[facility] RADULESCU OUTPATIEN 8 8 , JASMINA C , JASMINA C T VISIT 25 MINUTES OFFICE 97805 Aidee BORREGO OUTPATIEN 8 8 KRYSTAL MOORE T VISIT PSC 15 MINUTES EMERGENCY 57591 ROSALINDA 8 8 [facility] DEPART[facility] INC T VISIT MODERATE SEVERITY [facility]OSPITAL ROSALINDA - 8 8 [facility] OUT[facility] INC T OFFICE 78934 [facility] , JASMINA Rivero T VISIT 5 SERV MINUTES [facility] ROSALINDA - 8 8 [facility] [place] [place] [facility] OUTPATIEN [facility] T OFFICE 63101 Aidee BORREGO [facility] 8 8 KRYSTAL Gomes VISIT PSC 15 MINUTES
--- OUTSIDE RECORDS SUMMARY | 2016-10-24 18:10 | External Medical Summary Rpt ---
Author Author , Organization [employer] Address Unknown Phone Unavailable Care Team Providers Care Restaurant Bartender Name Role Phone A Josefa RICE MD [...] [facility], Unavailable Unavailable [facility] [place] [facility] [place] [facility] [place] [place] [facility] FLOMENHOFT MARTINEZ, Unavailable Unavailable FLOMENHOFT MARTINEZ SHAHNAZ, CHRISTOPHER, Unavailable Unavailable SHAHNAZ, CHRISTOPHER [facility] Un[facility] Unavailable Unavailable [facility], [facility] Unavailable Unavailable [place], [facility] Unavailable [facility]available [place], [facility] Unavailable Unavailable [facility], [facility] Unavailable Unavailable [facility], [facility] Unavailable Unavailable INC, [facility] VAUGHN NATALIE, VAUGHN NATALIE Unavailable Unavailable VAUGHN NATALIE, [facility] NATALIE Unavailable Unavailable [facility], Unavailable Unavailable [facility] ABDON MATTHEWS Unavailable Unavailable DEVIN ORR, Unavailable Unavailable DEVIN COPPOLA [facility] Unavailable Unavailable PHARMACY, [facility] Unavailable Unavailable [facility], [facility] KMS NURSE Unavailable Unavailable PRACTITIONER GR, KMSF NURSE PRACTITIONER [facility] Unavailable [facility], [facility] DEANNE GRA, DEANNE Unavailable Unavailable GRA DEANNE GRA, DEANNE Unavailable Unavailable GRA BREN ALICEA W, Unavailable Unavailable BREN ALICEA JAM, Unavailable Unavailable SUE RANKIN MIDBOE-CHAY, RENNY Unavailable Unavailable R, MIDBOE-CHAY, RENNY R JEREMY ESTRADA P, Unavailable Unavailable JEREMY ESTRADA P MIDDLETON KARTHIK, Unavailable Unavailable [facility]DLE[facility] KARTHIK PETTEY JAM, PETTEY Unavailable Unavailable JAM [facility], Unavailable Unavailable [facility] RAD[facility]ES[facility], JASMINA C, Unavailable Unavailable RADULESCU, JASMINA C RANSDELL WAR, Unavailable Unavailable RANSDELL WAR RANSDELL WAR, Unavailable Unavailable RANSDELL WAR NAN INFANTE, Unavailable Unavailable NAN INFANTE ELMO MARCELINA, ELMO Unavailable Unavailable MARCELINA ELMO MARCELINA, ELMO Unavailable Unavailable MARCELINA ELMO, TERESA, Unavailable Unavailable ELMO, TERESA [id number], Unavailable Unavailable [id number] Unavailable Unavailable [id number] [address] [id number], [facility] [id number] [address] [id number] MARGARITA NOVAK, Unavailable Unavailable MARGARITA NOVAK SHASHY Unavailable Unavailable WINSTON MONTERO SHASHSidney Unavailable Unavailable SHERI KUMARI, Unavailable Unavailable SHERI GRACE JEREMY V, Unavailable Unavailable ALEKSANDR BROWNING V [facility] Unavailable Unavailable [facility], [facility] Unavailable Unavailable [facility], [facility] Unavailable Unavailable [facility] NURSE, [facility] DEPT OF [facility]available Unavailable PEDIATRIC, [facility] DEPT OF PEDIATRIC [facility], Unavailable Unavailable [facility] RADHA MARTINEZ, Unavailable Unavailable RADHA MARTINEZ EVELYN MCKENZIE, EVELYN MCKENZIE Unavailable Unavailable ALISON ESPINAL JR Unavailable Unavailable TEDDY Terry JR, EDWARD J Purpose Continuity of Care Document - 05-22-2007 through 2016 Problems Code Diagnosis DOS Provider Status 2864 VON 09-21-2013 [facility] 5920 CALCULUS OF 09-21-2013 [facility] 7880 RENAL COLIC 09-21-2013 [facility] 18800 ABDOMINAL 09-20-2013 [facility] PAIN, DEPT OF GENERALIZED PEDIATRIC 4660 ACUTE 08-28-2013 VELAZQUEZ BRONCHITIS FAB 4618 OTHER ACUTE 07-19-2013 [facility] SINUSITIS [facility]ANS [facility] 94285 CLOSED 03-27-2013 DEANNE GRA DISLOCATION MULTIPLE CERVICAL VERTEBRAE 8470 NECK SPRAIN 03-27-2013 DEANNE GRA AND STRAIN 8471 THORACIC 03-27-2013 DEANNE GRA SPRAIN AND STRAIN 8472 LUMBAR 03-27-2013 DEANNE GRA SPRAIN AND STRAIN 69812 CORNEAL 11-15-2011 VAUGH[facility] NATALIE ABSCESS 22778 NAUSEA 09-01-2011 [facility] 31989 HEMATURIA 08-01-2011 ELMO MARCELINA UNSPECIFIED 462 ACUTE 06-25-2011 A Josefa RICE PHARYNGITIS [facility] 42916 UNSPECIFIED 04-15-2011 ELMO MARCELINA OTALGIA 4619 ACUTE 04-15-2011 LEMO MARCELINA SINUSITIS, UNSPECIFIED 5921 CALCULUS OF 03-14-2011 [facility] HOSPCONE HEALTH V0481 NEED 02-07-2011 [facility] VACCINATION &INOCULATIO N FLU 7088 OTHER 01-31-2011 [facility] SPECIFIED [facility] URTICARIA INC 04856 PAIN IN 01-31-2011 [facility]DA JOINT, [facility] MULTIPLE INC SITES 20969 GENERALIZED 01-20-2011 ROS[facility]DA [facility] ANXIETY [facility] DISORDER SCHOOL 34931 UNSPECIFIED 01-04-2011 JANE CLOSED HOME FRACTURE OF MEDICAL CARPAL EQUIPME BONE 48565 OTHER WRIST 01-04-2011 [facility] SPRAIN AND PHYSICIANS STRAIN GROUP 18273 CONTUSION 01-04-2011 [facility]DA OF WRIST [facility] INC 48287 PAIN IN 12-21-2010 [facility] 7291 UNSPECIFIED 12-21-2010 [facility] AND MYOSITIS 7295 PAIN IN 12-21-2010 [facility] SOFT MIDDLE TISSUES OF SCHOOL LIMB 9249 CONTUSION 09-14-2010 ROSALINDA CO OF MIDDLE UNSPECIFIED SCHOOL SITE 7827 SPONTANEOUS 09-13-2010 [facility] ECCHYMOSES [facility]LE S[facility]OL 7840 HEADACHE 09-08-2010 [facility] 89552 OTHER 09-01-2010 ROS[facility]DA CO MALAISE AND [facility]LE FATIGUE S[facility]OL 01978 UNSPECIFIED 08-11-2010 [place] SITE OF HOSPITAL ANKLE SPRAIN AND STRAIN V146 PERSONAL 08-11-2010 [place] HISTORY OF HOSPITAL ALLERGY TO ANALGESIC AGENT V1507 PERSONAL 08-11-2010 [facility] ALLERGY TO LATEX 4659 ACUTE URIS 07-15-2010 A Josefa REESE [facility] UNSPECIFIED SITE 54174 UNSPECIFIED 07-01-2010 [facility] RETIN[facility]ISION DEFECT 02014 REGULAR 07-01-2010 [facility] ASTIGMATISM WAR 51685 VISUAL 07-01-2010 [facility] DISCOMFORT WAR 3688 OTHER 07-01-2010 RANSDELL SPECIFIED WAR VISUAL DISTURBANCE S 68792 GENERALIZED 06-23-2010 [facility] PAIN [facility] 5641 IRRITABLE 05-20-2010 [facility] [place] [address] PAIN IN [place] 05-13-2010 [facility] AROUND EYE [facility] V2501 GENERAL 05-12-2010 A Josefa RICE COUNSELING [facility] PRESCRIPTIO N ORAL CONTRACEPTS V2540 UNSPECIFIED 05-12-2010 A Josefa RICE MD [facility] CONTRACEPTI VE SURVEILLANC E 7847 EPISTAXIS 04-09-2010 [facility] 7848 HEMORRHAGE 04-09-2010 [facility] FROM THROAT [facility] 7841 THROAT PAIN 03-23-2010 [facility] 6263 PUBERTY 02-24-2010 [place] [facility] 0088 INTESTINAL 01-30-2010 A Josefa RICE INFECTION [facility] DUE TO OTHER ORGANISM NEC 39173 DEHYDRATION 01-30-2010 A Josefa RICE MD [facility] 5589 OTH&UNSPEC 01-30-2010 [place] NONINFECTIO [facility] US INC GASTROENTER ITIS&COLITI S 50923 PAIN IN 01-20-2010 [place] [facility], MEDICAL ANKLE AND IMAGING ASS FOOT 8448 SPRAIN&STRA 01-20-2010 A Josefa RICE IN OTHER [facility] SPECIFIED SITES KNEE&LEG 33725 CONTUSION 01-20-2010 A Josefa RICE OF FOOT [facility] 9597 INJURY 01-20-2010 [place] OTHER&UNSPE MEDICAL CIFIED KNEE IMAGING ASS LEG ANKLE&FOOT V705 HEALTH 01-20-2010 [place] EXAMINATION MEDICAL OF DEFINED IMAGING ASS SUBPOPULATI ON 5758 OTHER 01-08-2010 [facility] NURSE SPECIFIED PRACTITIONE DISORDER OF R GR GALLBLADDER 15063 DIARRHEA 01-08-2010 [facility] [place] [address] ABDOMINAL 01-08-2010 [facility] NURSE PAIN, LEFT PRACTITIONE UPPER R GR QUADRANT V4579 OTHER 01-08-2010 [facility] NURSE ACQUIRED PRACTITIONE ABSENCE OF R GR ORGAN 24631 OTHER 11-20-2009 [facility] INSUFFICIEN CY NEC 9953 ALLERGY 11-20-2009 [facility] NOT ELSEWHERE CLASSIFIED 93554 ABDOMINAL 11-17-2009 [facility], MEDICAL UNSPECIFIED IMAGING ASS SITE 34489 NAUSEA WITH 11-12-2009 [facility] VOMITING [facility] 50224 ABDOMINAL 11-12-2009 [facility] RIGHT MEDICAL UPPER IMAGING ASS QUADRANT 2892 NONSPECIFIC 11-02-2009 Aidee RICE MESENTERIC [facility] [place] [address] ABDOMINAL 10-28-2009 [facility] PAIN RIGHT [facility] LOWER INC QUADRANT 5601 PARALYTIC 10-27-2009 [place] I[facility]US [facility] 0340 STREPTOCOCC 09-24-2009 Aidee LEE MD [facility] THROAT 9233 CONTUSION 09-10-2009 [facility] OF FINGER [facility] 6262 EXCESSIVE 07-01-2009 [place] [facility] [place] FREQUENT SERV [facility] MENSTRUATIO N 2850 SIDEROBLAST 06-12-2009 Aidee RICE IC ANEMIA [facility] E9479 UNSPEC 06-12-2009 A Josefa RICE RX/MEDICINA [facility] L SBSTNC CAUS ADVRS EFF TX USE 470 DEVIATED 06-08-2009 SHASHY WINSTON NASAL SEPTUM 4780 HYPERTROPHY 06-08-2009 SHASHY WINSTON OF NASAL TURBINATES 48504 OTHER 06-08-2009 [facility] DISEASES [facility] HOSPITAL CAVITY AND SINUSES 8020 NASAL 06-08-2009 [place], ANESTHESIA CLOSED GROUP [facility] FRACTURE 57230 HEMORRHAGE 06-08-2009 [place] COMPLICATIN [facility] G A HOSPITAL PROCEDURE NEC 4720 CHRONIC 06-05-2009 SHASHY WINSTON RHINITIS 920 CONTUSION 05-25-2009 A Josefa RICE OF FACE [facility] SCALP AND NECK EXCEPT EYE 92853 OTHER 12-25-2008 [facility] CHRONIC VISION ALLERGIC CONJUNCTIVI TIS 13675 UNSPECIFIED 11-24-2008 Aidee RICE MD [facility] CONSTIPATIO N 2561 OTHER 11-03-2008 Aidee RICE OVARIAN [facility] [place] [address] SPRAIN AND 11-01-2008 [facility] STRAIN OF MEM [facility] UNSPECIFIED INC SITE OF HAND 86578 SPRAIN AND 11-01-2008 [place] STRAIN OF MEDICAL UNSPECIFIED IMAGING SITE OF ASSOCIATES FOOT E8498 OTHER 11-01-[address] [place] [address]IF[address] OF IMAGING OCCURRENCE ASSOCIATES E9278 OTH 11-01-2008 [place] OVEREXERT&S MEDICAL TRENUOUS&RE IMAGING PETITIVE ASSOCIATES MVMNTS/LOAD S 00075 ESOPHAGEAL 10-07-2008 Aidee RICE REFLUX [facility] 6253 DYSMENORRHE 10-07-2008 A Josefa Hoskins MD [facility] V061 NEED PROPH 09-15-2008 A Josefa RICE VAC W/SHAKIRA MOBLEY [facility] DIPHTH-TETA NUS-PERTUSS VAC V202 ROUTINE 09-15-2008 A Josefa RICE INFANT OR [facility] CHILD HEALTH CHECK 7231 CERVICALGIA 08-20-2008 SHAHNAZ, HERMILAOPHER 7241 PAIN IN 08-20-2008 SHAHNAZ, THORACIC CHRISTOPHER SPINE 3629 UNSPECIFIED 07-25-2008 [facility] RETINAL VISION DISORDER 5368 DYSPEPSIA&O 04-08-2008 [facility] SPEC HE[facility] DISORDERS [facility]ENTRAL [facility] ACCT STOMACH 85500 FEVER 02-23-2008 [facility] UNSPECIFIED [facility] INC 3670 HYPERMETROP 09-10-2007 EM [facility] V 2879 UNSPECIFIED 07-20-2007 [facility] HEMORRHAGIC INC CONDITIONS N23 UNSPECIFIED [...] 93 BL 8 ET # 03 93 DC 64 09 09 0 14 14 EA [...] 0- 0- 00 SI 71 S ve DC [address] ED 20 [...] 03 03 0 30 30 EA 21 NM Ac DE 09 -3 -[address] [...] 30 20 20 DE 16 10 10 NM 5 PH CH AR AE MA L [...] 20 20 DE RO 10 10 10 NM GE [address] AR AM [...] MG C # TA 07 B 0 DC 00 07 07 1 45 8 EA [...] CY /M NT L HI AN A DC 00 06 06 1 30 5 EA [...] CY OF CY NT HI AN A DC 37 06 06 1 60 30 EA [...] OU P IN C # 07 0 DC 37 06 03 3 30 30 EA [...] 01 56 28 EA 14 JA Ac NM 55 -2 -[address] 77 CK [...] 00 56 28 EA 14 JA Ac NM 55 -2 -[address] 77 CK [...] 02 56 28 EA 13 JA Ac NM 55 -1 -[address] 79 CK [...] 01 56 28 EA 13 JA Ac NM 55 -1 -[address] 79 CK ti LA 50 1- 4- 00 SI 86 SO ve 71 20 20 DE N 0. 55 09 09 WE 35 8 PH ND AR Y MG MA L CY TA BL OF ET CY NT HI AN A CA 00 08 08 00 56 28 EA 13 JA Ac NM 55 -1 -[address] 79 CK [...] 00 28 28 EA 13 JA Ac NM 55 -2 -[address] 63 CK [...] ET OF CY NT HI AN A NM 59 07 07 00 1. 1 EA 13 RO Ac SO 76 -1 -[address] 51 NE ti DC 25 6- 0- 0 SI 53 ve [...] CY OF CY NT HI AN A DC 37 06 06 00 30 30 EA [...] 03 06 03 42 21 EA 12 NM Ac NE 55 -2 -[address] [...] 03 06 02 42 21 EA 12 NM Ac NE 55 -2 -[address] 04 DB ti L 59 4- 4- 00 SI 28 OE ve 1 02 20 20 DE -P MG 54 09 09 EN -2 2 PH N 0 AR PA MC MA ME G CY LA TA R BL OF ET CY NT HI AN A JU 00 03 05 01 42 21 EA 12 NM Ac NE 55 -2 -[address] [...] 20 DE ZA 60 09 09 RI DC 1 PH CH IN AR AR E [...] 03 04 00 42 21 EA 12 NM Ac NE 55 -2 -[address] [...] 20 DE ZA 60 09 09 RI DC 1 PH CH IN AR AR E [...] N GR M OU P IN C DC 00 12 01 00 30 8 CL [...] 20 AI YC 00 08 08 D NM IN 1 PH CH AR AE 25 [...] 25 CY 0 MG TA BL ET DC 00 03 04 00 20 8 CL [...] Procedures Procedure DOS Code Location Performer Comment [facility] [address] [place] [address] MEDICAL AFT CARE/DAY SERV 35 [facility]ES [facility] [address] [facility] [place] [place] CARE/DAY OF 35 PEDIATRIC MINUTES INJECTION J0696 [facility] 4 PHYSICIAN PHYSICIAN CEFTRIAXO S GROUP S GROUP NE SODIUM PER 250 MG THERAPEUT 53545 [facility] IC 4 PHYSICIAN PHYSICIAN PROPHYLAC S GROUP S GROUP TIC/DX INJECTION SUBQ/IM CHIROPRAC 03058 DEANNE ALICEA TIC 3 GRA GRA MANIPULAT SONNY TX SPINAL 3-4 REGIONS BLOOD 25668 [facility] COUNT 3 Y Y COMPLETE [facility] AUTO&AUTO DIFRNTL WBC IRON 67388 [facility] BINDING 3 Y Y CAPACITY [facility] COLLECTIO 23430 [facility] N VENOUS 3 Y Y BLOOD [facility] VENIPUNCT URE INJECTION J2550 EL[facility] ELMO 2 MARCELINA MARCELINA PROMETHAZ INE HCL UP TO 50 MG URINLS 97629 EL[facility] ELMO DIP 2 MARCELINA MARCELINA STICK/TAB LET REAGNT NON-AUTO MICRSCPY THERAPEUT 26479 ELMO ELMO IC 2 MARCELINA MARCELINA PROPHYLAC TIC/DX INJECTION SUBQ/IM IAADIADOO 77604 A C A C 2 KRYSTAL RICE MD [place] [address] [facility] ABDOMEN & 1 N N PELVIS [facility] W/O HOSPITA HOSPITA CONTRAST MATERIAL THER 95597 [facility] PROPH/DX 1 N N NJX IV [facility] PUSH HOSPITA HOSPITA SINGLE/1S T SBST/[place] [address] [facility] INFUSION 1 N N HYDRATION [facility] EACH HOSPITA HOSPITA ADDITIONA L HOUR CULTURE 82561 [facility] BACTERIAL 1 N N COMMUNITY [facility] QUANTTATI HOSPITA HOSPITA VE COLONY COUNT URINE URINE 87113 [facility] 1 N N TEST [facility] VISUAL HOSPITA HOSPITA COLOR CMPRSN METHS THER 09527 [facility] PROPH/DX 1 N N NJX EA [facility] SEQL IV HOSPITA HOSPITA PUSH SBST/DRUG FAC THERAPEUT 27825 [facility] IC 1 N N INJECTION [facility]ITY [facility] IV PUSH HOSPITA HOSPITA EACH NEW DRUG INJECTION J2270 [facility] MORPHINE 1 N N SULFATE [facility] UP TO 10 HOSPITA HOSPITA MG COLLECTIO 40812 [facility] N VENOUS 1 N N BLOOD [facility] VENIPUNCT HOSPITA HOSPITA URE INJECTION J2405 [facility] 1 N N ONDANSETR [facility] ON HCL HOSPITA HOSPITA PER 1 MG IIV3 08765 ROSALINDA TELLEZ VACCINE 1 [facility] VIRUS 0.5 ML DOSAGE IM USE BLOOD 63978 ROS[facility]DA TELLEZ COUNT 1 [facility] COMPLETE INC INC AUTO&AUTO DIFRNTL WBC RHEUMATOI 00292 ROS[facility]DA Paul FACTOR 1 [facility]OS[facility] QUANTITAT INC INC SONNY SEDIMENTA 99637 ROSALINDA TELLEZ TION RATE 1 [facility]OS[facility] RBC INC INC NON-AUTOM ATED MICROSOMA 39390 ROS[facility]DA TELLEZ L 1 [facility] MEM HOSP ANTIBODIE INC INC S EACH ANTINUCLE 61614 ROSALINDA TELLEZ AR 1 [facility] [place] [address] ROSALINDA TELLEZ THYROXINE 1 [facility]OS[facility] TOTAL INC INC ANTIBODY 67982 ROSALINDA TELLEZ HELICOBAC 1 [facility]OS[facility] TER INC INC PYLORI C-REACTIV 65305 ROSALINDA TELLEZ E PROTEIN 1 [place] [address] ROS[facility]DA TELLEZ THYROID 1 MEM H[facility] MEM HOSP STIMULATI INC INC NG HORMONE TSH COLLECTIO 03277 ROSALINDA TELLEZ N VENOUS 1 MEM HOS[facility] MEM HOSP BLOOD INC INC VENIPUNCT URE WRIST L3908 [facility] WALKERRELL HAND 1 HOME HOME [facility]THOS[facility] MEDICAL MEDICAL EXT EQUIPME EQUIPME CONTROL COCK-UP PREFAB RADEX 83511 ROSALINDA TELLEZ WRIST 1 [facility] HOS[facility] MEM HOSP COMPLETE INC INC MINIMUM 3 VIEWS THER 35698 [facility] PROPH/DX 1 Y Y NJX IV [facility] PUSH SINGLE/1S T SBST/DRUG RADEX 23873 [facility] WRIST 1 Y Y [facility] MINIMUM 3 VIEWS RADEX 89394 [facility] FOREARM 2 1 Y Y VIEWS [facility] INJ J7187 [facility] VONWILLEB 1 Y Y RND HOSPITAL HOSPITAL FACTOR CMPLX HUMN RISTOCETI N IU RADEX 77965 [facility] HAND 1 Y Y MINIMUM 3 HOSPITAL HOSPITAL VIEWS RADEX 49379 [facility] ELBOW 1 Y Y COMPLETE [facility] MINIMUM 3 VIEWS RADEX 11687 [facility] ANKLE 1 Y Y COMPLETE [facility] MINIMUM 3 VIEWS RADIOLOGI 61665 [facility] C [address] [facility] [place] ON TIBIA & FIBULA 2 VIEWS RADIOLOGI 63378 [facility] [address] [facility] [place] ON KNEE 3 VIEWS IADNA 74574 Aidee BORREGO STREPTOCO 1 KRYSTAL MOBLEY MARCELINA CCUS PSC GROUP A QUANTIFIC ATION DETERMINA 11652 [facility] TION 1 WAR WAR REFRACTIV E STATE FRAMES V2020 ALINE ESTRADA PURCHASES 1 VISION OPHTH 98320 [facility] 1 WAR WAR XM&EVAL COMPRE NEW PT 1/> VST RPR&REFIT 23257 [facility] ESTRADA G 1 VISION SPECTACLE S EXCEPT APHAKIA SPHERE V2300 [facility] ESTRADA TRIFOCAL 1 VISION PLANO OR +/-4.00D PER LENS IIV3 83142 ROSALINDA TELLEZ VACCINE 0 [facility] VIRUS 0.5 ML DOSAGE IM USE THERAPEUT 38019 ROS[facility]DA TELLEZ IC 0 [facility] INJECTION [place] [address] ROSAL[facility]DA TELLEZ INFUSION 0 [facility] THERAPY/P INC INC ROPHYLAXI S /DX 1ST TO 1 [place] [address] [facility] TELLE[facility] INFUSION 0 [facility] THERAPY INC INC PROPHYLAX IS/DX EA HOUR 3D 24810 ROS[facility]DA TELLEZ RENDERING 0 [facility]OS[facility] INC INC W/INTERP& POSTPROC DIFF WORK STATION CT PELVIS 99050 ROS[facility]DA TELLEZ W/O 0 [facility] CONTRAST INC INC MATERIAL URINE 54074 ROSALINDA TELLEZ 0 [facility] TEST INC [place] [address] ROSALINDA TELLEZ INFUSION 0 [facility]OS[facility] THERAPY INC INC PROPHYLAX IS/[place] [address] ROSAL[facility]DA TELLEZ LIPASE 0 [place] [address] [facility]DA TELLEZ ABDOMEN 0 [facility] W/[place] [address] [facility] TELLE[facility] AMYLASE 0 [facility] INC INC COMPREHEN 40225 ROSALINDA CROOKSON SIVE 0 [facility] METABOLIC INC INC PANEL THERAPEUT 30405 ROSALINDA TELLEZ IC 0 [facility] H[facility] MEM [facility]OSP INJECTION INC INC IV PUSH EACH NEW DRUG URNLS DIP 66493 ROS[facility]DA TELLEZ 0 [facility] STICK/TAB INC INC LET REAGENT AUTO MICROSCOP Y BLOOD 38439 [facility]DA TELLEZ COUNT 0 [facility]OS[facility] COMPLETE INC INC AUTO&AUTO DIFRNTL WBC RADEX 93405 [place] JACEK FOOT 0 MEDICAL BRYAN COMPLETE IMAGING MINIMUM 3 ASS VIEWS RADIOLOGI 00274 [place] JACEK C 0 MEDICAL BRYAN EXAMINATI IMAGING ON KNEE ASS 1/2 VIEWS RADIOLOGI 93648 [place] JACEK C 0 MEDICAL BRYAN EXAMINATI IMAGING ON KNEE 3 ASS VIEWS ECG 26781 [facility] ROUTINE 0 Y Y ECG [facility] W/LEAST 12 LDS TRCG ONLY W/O I&R THER 53279 [facility] STATION PROPH/DX 0 Y JAM NJX HOSPITAL PUSH SINGLE/1S T SBST/DRUG ARTERIAL 76442 [facility] PUNCTURE 0 Y Y WITHDRAWA [facility] L BLOOD DX GASES 66675 [facility] BLOOD PH 0 Y Y DIRECT [facility] [place] [address] [facility] INFUSION 0 Y Y HYDRATION [facility] EACH ADDITIONA L HOUR THERAPEUT 66665 ROSALINDA TELLEZ IC 0 [facility] INJECTION [place] [address] ROS[facility] TEL[facility] INFUSION 0 [facility] THERAPY/P INC INC ROPHYLAXI S /DX 1ST TO 1 HR HEPATBL 42800 [facility] TELLEZ DUX SYS 0 [facility] IMG INC INC GLBLDR THER 67482 [facility] TELLE[facility] PROPH/DX 0 [facility] NJX IV INC INC PUSH SINGLE/1S T SBST/[place] [address] [facility] TELLE[facility] ABDOMINAL 0 [facility] REAL INC INC TIME W/IMAGE LIMITED THERAPEUT 73041 ROSALINDA ROSALINDA IC 0 [facility] INJECTION INC INC IV PUSH EACH NEW DRUG URNLS DIP 97298 ROSALINDA TELLEZ 0 [facility] STICK/TAB INC INC LET REAGENT AUTO MICROSCOP Y BLOOD 87405 ROS[facility]INDA TELLEZ COUNT 0 [facility] COMPLETE INC INC AUTO&[place] [address] ROSALINDA ROSALINDA INFUSION 0 [facility] THER INC INC PROPH ADDL SEQUENTIA L [place] [address] [facility]DA TELLE[facility] INFUSION 0 [facility] THERAPY/P INC INC ROPHYLAXI S /DX 1ST TO 1 HR OBSERVATI 15527 Aidee BORREGO ON/INPATI 0 [facility] ENT [facility] CARE 40 MINUTES HOSPITAL [id number] ROSALINDA TELLEZ OBSERVATI 0 [facility] [place] [address] ROSALINDA TELLEZ AMYLASE 0 [facility] INC INC COMPREHEN 95950 ROSALINDA TELLEZ SIVE 0 [facility] METABOLIC INC INC PANEL COLLECTIO 52325 ROSALINDA TELLEZ N VENOUS 0 [facility] [place]LOOD [place] [address] ROSALINDA TELLEZ LIPASE 0 [facility] INC INC URINE 59661 ROS[facility]INDA TELLEZ 0 [facility] TEST INC INC VISUAL COLOR CMPRSN METHS BASIC 84569 ROSALINDA TELLEZ METABOLIC 0 [facility] PANEL INC INC CALCIUM TOTAL 3D 00569 ROSALINDA TELLEZ RENDERING 0 [facility] INC INC W/INTERP& POSTPROC DIFF WORK STATION CT PELVIS 12739 ROSALINDA TELLEZ W/O 0 [facility] [place] [address] ROSALINDA TELLEZ ABDOMEN 0 [facility] W/O INC INC CONTRAST MATERIAL IADNA 31429 Aidee BORREGO, STREPTOCO 0 [facility] A QUANTIFIC ATION RADEX 39580 DANIELA MEREDITH 0 BYRON [facility] MINIMUM 2 IMAGING VIEWS ASSOCIATE S FUNDUS 56986 ALINE ESTRADA PHOTOGRAP 0 VISION HY W/INTERPR ETATION & REPORT OPHTH 08356 ALINE ESTRADA MEDICAL 0 VISION XM&EVAL COMPRHNSV ESTAB PT 1/> BLOOD 72971 Aidee BORREGO, COUNT 0 [facility] COMPLETE PSC AUTO&AUTO DIFRNTL WBC SUBMUCOUS 16640 SANJAY GRACE RESCJ 0 WINSTON WINST[place] INFERIOR TURBINATE PRTL/COMP L SEPTOPLAS 41346 SANJAY GRACE TY/SUBMUC 0 [place] OUS RESECJ W/WO CARTILAGE GRF ANESTHESI 60684 [place] ZIEMBROSK A NOSE & 0 ANESTHESI I JR, ACCESSORY A GROUP EDWARD J SINUSES PSC NOS OTHER 2169 [facility] TURBINECT 0 N N LILIA [facility] CLOSED 2171 [facility] REDUCTION 0 N N OF NASAL [facility] OTHER 2188 [facility] SEPTOPLAS 0 N N TY [facility] CHIROPRAC 47624 DEANNE ALICEA, TIC 9 BREN W BREN W [place]UL[place] SP[place]AL 3-[place] [address] DEANNE ALICEA, 1/> AREAS 9 BREN W BREN W EACH 15 MINUTES MASSAGE APPLICATI 31937 DEANNE ALICEA, ON 9 BREN W BREN W MODALITY 1/> AREAS HOT/COLD PACKS APPL 39831 DEANNE ALICEA, MODALITY 9 BREN W BREN W 1/> AREAS ELEC STIMJ EA 15 MIN APPL 18711 DEANNE ALICEA, MODALITY 9 BREN W BREN W 1/> AREAS TRACTION MECHANICA L APPL 96415 DEANNE ALICEA, MODALITY 9 BREN W BREN W 1/> AREAS E[place] [address] DEANNE ALICEA, 1/> AREAS 9 BREN W BREN W EACH 15 MINUTES MASSAGE APPLICATI 02373 DEANNE ALICEA, ON 9 BREN W BREN W MODALITY 1/> AREAS HOT/COLD PACKS CHIROPRAC 79351 DEANNE ALICEA, TIC 9 BREN W BREN W MANIPULAT [place] SPINAL 3-4 REGIONS APPL 54872 DEANNE ALICEA, MODALITY 9 BREN W BREN W 1/> [place] [address] DEANNE ALICEA, 1/> AREAS 9 BREN W BREN W EACH 15 MINUTES MASSAGE CHIROPRAC 21615 DEANNE ALICEA, TIC 9 BREN W BREN W MANIPULAT [place] SPINAL 3-4 REGIONS APPLICATI 88639 DEANNE ALICEA, ON 9 BREN W BREN W MODALITY 1/> AREAS HOT/COLD PACKS APPL 94477 DEANNE ALICEA, MODALITY 9 BREN W BREN W 1/> AREAS ELEC STIMJ EA 15 MIN APPL 39096 DEANNE ALICEA, MODALITY 9 BREN W BREN W 1/> AREAS TRACTION MECHANICA L COLLECTIO 66937 Aidee BORREGO, N VENOUS 9 KRYSTAL MOBLEY [facility] BLOOD [facility] VENIPUNCT URE RADEX 27688 ROSALINDA TELLEZ FINGR 9 [facility] MINIMUM 2 INC INC VIEWS APPL 71962 DEANNE ALICEA, MODALITY 9 BREN W BREN W 1/> [place] [address] DEANNE ALICEA, 1/> AREAS 9 BREN W BREN W EACH 15 MINUTES MASSAGE CHIROPRA 48356 DEANNE ALICEA, TIC 9 BREN W BREN W MANIPULAT [place] SPINAL 3-4 REGIONS APPL 11329 DEANNE ALICEA, MODALITY 9 BREN W BREN W 1/> AREAS ELEC STIMJ EA 15 MIN APPL 44978 DEANNE ALICEA, MODALITY 9 BREN W BREN W 1/> AREAS ELEC STIMJ EA 15 MIN APPL 91862 DEANNE ALICEA, MODALITY 9 BREN W BREN W 1/> AREAS TRACTION MECHANICA L APPLICATI 42680 DEANNE ALICEA, ON 9 BREN W BREN W MODALITY 1/> AREAS HOT/COLD PACKS CHIROPRAC 18505 DEANNE ALICEA, TIC 9 BREN W BREN W [place] SPINAL 3-[address] [place] [address] DEANNE DEANNE, 1/> AREAS 9 BREN W BREN W EACH [place] [address] DEANNE DEANNE, 1/> AREAS 9 BREN W BREN W EACH 15 MINUTES MASSAGE CHIROPRAC 83532 DEANNE ALICEA, TIC 9 BREN W BREN W MANIPULAT [place] SPINAL 3-4 REGIONS APPL 57554 DEANNE ALICEA, MODALITY 9 BREN W BREN W 1/> AREAS TRACTION MECHANICA L APPLICATI 79119 DEANNE DEANNE, ON 9 BREN W BREN W MODALITY 1/> AREAS HOT/COLD PACKS APPL 50880 DEANNE ALICEA, MODALITY 9 BREN W BREN W 1/> AREAS ELEC STIMJ EA 15 MIN CHIROPRAC 35709 DEANNE ALICEA, TIC 9 BREN W BREN W MANIPULAT [place] SPINAL 3-4 REGIONS APPLICATI 83635 DEANNE ALICEA, ON 9 BREN W BREN W MODALITY 1/> AREAS [place] [address] DEANNE ALICEA, 1/> AREAS 9 BREN W BREN W EACH 15 MINUTES MASSAGE APPL 71942 DEANNE ALICEA, MODALITY 9 BREN W BREN W 1/> AREAS ELEC STIMJ EA 15 MIN FRAMES V2020 ALINE NOVAK, PURCHASES 9 VISION MARGARITA M OPHTH 34351 ALINE NOVAK, MEDICAL 9 VISION MARGARITA M XM&EVAL COMPRHNSV ESTAB PT 1/> SPHERE V2100 ALINE NOVAK, SINGLE 9 VISION MARGARITA M VISION PLANO +/- 4[place]00 [place] [address] DEANNE ALICEA, 1/> AREAS 9 BREN W BREN W EACH 15 MINUTES MASSAGE CHIROPRAC 43098 DEANNE ALICEA, TIC 9 BREN W BREN W MANIPULAT [place] SPINAL 3-4 REGIONS APPL 62321 DEANNE ALICEA, MODALITY 9 BREN W BREN W 1/> [place] [address] DEANNE ALICEA, 1/> AREAS 9 BREN W BREN W EACH 15 MINUTES MASSAGE CHIROPRAC 89199 DEANNE ALICEA, TIC 9 BREN W BREN W MANIPULAT [place] SPINAL 3-4 REGIONS APPL 59657 DEANNE ALICEA, MODALITY 9 BREN W BREN W 1/> AREAS ELEC STIMJ EA 15 MIN APPL 69903 DEANNE ALICEA, MODALITY 9 BREN W BREN W 1/> AREAS TRACTION MECHANICA L APPLICATI 41654 DEANNE ALICEA, ON 9 BREN W BREN W MODALITY 1/> AREAS HOT/COLD PACKS APPL 28003 DEANNE ALICEA, MODALITY 9 BREN W BREN W 1/> [place] [address] DEANNE ALICEA, 1/> AREAS 9 BREN W BREN W EACH 15 MINUTES MASSAGE APPLICATI 81249 DEANNE ALICEA, ON 9 BREN W BREN W MODALITY 1/> AREAS HOT/COLD PACKS APPL 81436 DEANNE ALICEA, MODALITY 9 BREN W BREN W 1/> AREAS ELEC STIMJ EA 15 MIN CHIROPRAC 50087 DEANNE ALICEA, TIC 9 BREN W BREN W [place]IPULAT [place] SPINAL 3-[address] [place] [address] DEANNE ALICEA, 1/> AREAS 9 BREN W BREN W EACH 15 MINUTES MASSAGE APPL 33866 DEANNE ALICEA, MODALITY 9 BREN W BREN W 1/> AREAS TRACTION MECHANICA L APPLICATI 64948 DEANNE ALICEA, ON 9 BREN W BREN W MODALITY 1/> AREAS HOT/COLD PACKS CHIROPRAC 32613 DEANNE ALICEA, TIC 9 BREN W BREN W MANIPULAT [place] SPINAL 3-4 REGIONS APPL 65404 DEANNE ALICEA, MODALITY 9 BREN W BREN W 1/> AREAS ELEC STIMJ EA 15 MIN APPL 97984 DEANNE ALICEA, MODALITY 9 BREN W BREN W 1/> AREAS ELEC STIMJ EA 15 MIN APPL 17821 DEANNE ALICEA, MODALITY 9 BREN W BREN W 1/> AREAS TRACTION MECHANICA L CHIROPRAC 74394 DEANNE ALICEA, TIC 9 BREN W BREN W MANIPULAT [place] SPINAL 3-4 REGIONS APPLICATI 04078 DEANNE ALICEA, ON 9 BREN W BREN W MODALITY 1/> AREAS [place] [address] DEANNE ALICEA, 1/> AREAS 9 BREN W BREN W EACH 15 MINUTES MASSAGE SELF-CARE 81953 DEANNE ALICEA, /HOME 9 BREN W BREN W MGMT TRAINING EACH 15 MINUTES APPL 56403 DEANNE ALICEA, MODALITY 9 BREN W BREN W 1/> AREAS TRACTION MECHANICA L APPLICATI 58270 DEANNE ALICEA, ON 9 BREN W BREN W MODALITY 1/> AREAS HOT/COLD PACKS RADEX 14172 DEANNE DEANNE, SPINE 9 BREN W BREN W CERVICAL 2 OR 3 VIEWS RADEX 21746 DEANNE DEANNE, SPINE 9 BREN W BREN W THORACIC 2 VIEWS APPL 88935 DEANNE ALICEA, MODALITY 9 BREN W BREN W 1/> AREAS ELEC STIM[place] [address] [place] [address] DEANNE ALICEA, 1/> AREAS 9 BREN W BREN W EACH 15 MINUTES MASSAGE APPL 88448 SHAHNAZ, SHAHNAZ, MODALITY 9 TAMI GARRETT 1/> AREAS ER ER ULTRASOUN D EA 15 MIN APPL 26067 SHAHNAZ, SHAHNAZ, MODALITY 9 TAMI GARRETT 1/> AREAS ER ER ELEC STIMJ UNATTENDE D CHIROPRAC 52005 SHAHNAZ, SHAHNAZ, TIC 9 TAMI TAMI MANIPULAT ER ER [place] SPINAL 1-2 REGIONS APPL 28384 SHAHNAZ, SHAHNAZ, MODALITY 9 TAMI TAMI 1/> AREAS ER ER ELEC STIMJ UNATTENDE D APPL 09721 SHAHNAZ, SHAHNAZ, MODALITY 9 TAMI TAMI 1/> AREAS ER ER ULTRASOUN D EA 15 MIN THERAPEUT 21473 SHAHNAZ, SHAHNAZ, IC PX 1/> 9 TAMI TAMI AREAS ER ER EACH 15 MIN EXERCISES CHIROPRAC 22637 SHAHNAZ, SHAHNAZ, TIC 9 TAMI TAMI MANIPULAT ER ER [place] SPINAL 1-2 REGIONS CHIROPRAC 98865 SHAHNAZ, SHAHNAZ, TIC 9 TAMI TAMI MANIPULAT ER ER [place] SPINAL 1-2 REGIONS APPL 37379 SHAHNAZ, SHAHNAZ, MODALITY 9 TAMI TAMI 1/> AREAS ER ER ELEC STIMJ UNATTENDE D APPL 10870 SHAHNAZ, SHAHNAZ, MODALITY 9 TAMI TAMI 1/> AREAS ER ER ULTRASOUN D EA 15 MIN CHIROPRAC 86485 SHAHNAZ, SHAHNAZ, TIC 9 TAMI TAMI MANIPULAT ER ER [place]ON[place] SPINAL 1-2 REGIONS SBSQ 18140 [facility] 9 N FAMILY NAN D CARE/DAY PHYS PSC 35 MINUTES CLOSED 08651 SANJAY GRACE, TREATMENT 9 SHERI Novak NASAL FRACTURE W/[place] [address] ROSALINDA TELLEZ HEAD/BRAI 9 [facility] N W/O INC INC CONTRAST MATERIAL 3D 95204 ROSALINDA TELLEZ RENDERING 9 [facility] W/INTERP INC INC & POSTPROCE SS SUPERVISI ON RADEX 05800 ALONSO READ, ORBITS 9 MEDICAL [place] COMPLETE IMAGING MINIMUM 4 ASSOCIATE VIEWS S CLOSED 68290 SANJAY GRACE, TREATMENT 9 SHERI Novak NASAL FRACTURE W/O MANIPULAT ION RADEX 77627 [place] JACEK, NASAL 9 MEDICAL [place] BONES IMAGING COMPLETE ASSOCIATE MINIMUM 3 S VIEWS IAADI 38816 ROSALINDA TELLEZ INFLUENZA 8 [facility] B VIRUS INC INC IMMUNOASS 91676 ROSALINDA TLELEZ AY NFCT 8 [facility] AGT ANTB INC INC QUAL/SEMI [place] 1 [place] [address] ROSALINDA TELLEZ STREPTOCO 8 [facility] CCUS INC INC GROUP A THER 73970 ROSALINDA TELLEZ PROPH/DX 8 [facility] NJX EA INC INC SEQL IV PUSH SBST/DRUG BLOOD 90622 ROSALINDA TELLEZ COUNT 8 [facility] COMPLETE INC INC AUTO&AUTO DIFRNTL WBC IAADI 80435 ROSALINDA TELLEZ INFFLUENZ 8 [facility] A A VIRUS INC INC URNLS DIP 34381 ROSALINDA TELLEZ 8 [facility] STICK/TAB INC INC LET REAGENT AUTO MICROSCOP Y BASIC 29459 ROSALINDA TELLEZ METABOLIC 8 [facility] PANEL INC INC CALCIUM TOTAL SPHERE V2100 NALLELY BROWNING, SINGLE 8 ALEKSANDR V ALEKSANDR V VISION PLANO +/- 4.00 PER LENS FITTING 32981 NALLELY BROWNING, SPECTACLE 8 ALEKSANDR BRANDON V S XCPT APHAKIA MONOFOCAL FRAMES V2020 NALLELY BROWNING, PURCHASES 8 ALEKSANDR Kimmie BRANDON V OPHTH 46650 NALLELY BROWNING, MEDICAL 8 ALEKSANDR V ALEKSANDR V XM&EVAL COMPRHNSV ESTAB PT 1/> THER 84986 ROSALINDA TELLEZ PROPH/DX 8 [facility] NJX IV INC INC PUSH 1ST SBST/DRUG URNLS DIP 50686 ROSALINDA TELLEZ 8 [facility] STICK/TAB INC INC LET REAGENT AUTO MICROSCOP Y RADEX 02412 ALONSO NJLEY, ANKLE 8 MEDICAL JEREMY P COMPLETE IMAGING MINIMUM 3 ASSOCIATE VIEWS S RADEX 36034 ROSALINDA TELLEZ FOOT 8 [facility] COMPLETE INC INC MINIMUM 3 VIEWS RADIOLOGI 36932 ROSALINDA ROSALINDA C 8 [facility] EXAMINATI INC INC ON ANKLE 2 VIEWS Encounters Encounter Start End Date Code Location Performer Type Date OFFICE 23825 CAROLINE VELAZQUEZ OUTPATIEN 4 4 FAB FAB T VISIT 15 MINUTES OFFICE 51033 [facility] OUTPATI[facility] 4 4 PHYSICIAN T NEW 20 S GROUP MINUTES [facility] 03359 KANE MIDDLETON OUTPATIEN 3 3 KARTHIK KARTHIK T VISIT 15 MINUTES OFFICE 20344 JOHANA VAUGNH NATALIE OUTPATIEN 2 2 T VISIT 10 MINUTES OFFICE 44311 ROSALINDA TELLEZ OUTPATIEN 2 2 [facility] 10 [facility]UT[facility] OFFICE 52897 ELMO ELMO OUTPATIEN 2 2 MARCELINA MARCELINA T VISIT 15 MINUTES OFFICE 28235 A C OUTPATIEN 2 2 KRYSTAL MOBLEY T VISIT PSC 15 MINUTES OFFICE 78140 ELMO ELMO OUTPATIEN 1 1 MARCELINA MARCELINA T VISIT 15 MINUTES OFFICE 30472 ELMO ELMO OUTPATIEN 1 1 MARCELINA MARCELINA T VISIT 15 MINUTES EMERGENCY 26897 [facility] 1 1 N [facility] T VISIT [facility]URGE NT [facility] 1 1 N [facility] ROSAL[facility]DA - 1 1 [facility] OUTPATIEN INC T OFFICE 56360 ROSALINDA TELLEZ OUTPATIEN 1 1 [facility] 10 MINUTES OFFICE 56213 [facility] PETTEY OUTPATIEN 1 1 PHYSICIAN JAM T NEW 20 S GROUP MINUTES HOSPITAL ROSALINDA - 1 1 [facility] OUTPATIEN INC T EMERGENCY 30861 [facility] 1 1 Y [facility] T VISIT HIGH/URGE NT SEVERITY [facility] 41891 ROSALINDA ROSALINDA OUTPATIEN 1 1 [facility] 15 MINUTES OFFICE 36761 ROSALINDA ROSALINDA OUTPATIEN 1 1 [facility] 10 MINUTES OFFICE 10318 ROSALINDA ROSALINDA OUTPATIEN 1 1 [facility] 10 MINUTES OFFICE 02270 ROSALINDA ROSALINDA OUTPATIEN 1 1 [facility] 10 MINUTES OFFICE 90610 A C ELMO OUTPATIEN 1 1 KRYSTAL MOBLEY MARCELINA T VISIT PSC 15 MINUTES OFFICE 48055 ROSALINDA TELLEZ OUTPATIEN 1 1 [facility] 10 MINUTES OFFICE 31569 ROSALINDA TELLEZ OUTPATIEN 1 1 [facility] 10 MINUTES OFFICE 14994 ROSALINDA TELLEZ OUTPATIEN 1 1 [facility]ES [facility] EMERGENC[facility] 96139 UNIVERSIT 1 1 Y [facility] T VISIT MODERATE SEVERITY OFFICE 34450 [facility] KANE OUTPATIEN 1 1 NURSE KARTHIK T VISIT PRACTITIO 15 NER GR MINUTES OFFICE 37166 A C ELMO OUTPATIEN 1 1 KRYSTAL MOBLEY MARCELINA T VISIT PSC 15 MINUTES OFFICE 76295 ROSALINDA TELLEZ OUTPATIEN 1 1 [facility] 10 MINUTES OFFICE 16623 ROSALINDA TELLEZ OUTPATIEN 1 1 [facility] 10 MINUTES OFFICE 06074 A C ELMO OUTPATIEN 1 1 KRYSTAL MOBLEY MARCELINA T VISIT PSC 15 MINUTES OFFICE 59570 ROSALINDA TELLEZ OUTPATIEN 1 1 [facility] 10 MINUTES OFFICE 33450 ROSALINDA TELLEZ OUTPATIEN 1 1 [facility]ISIT 5 [facility] MINUTES OFFICE 16242 ROSALINDA TELLEZ OUTPATIEN 1 1 [facility] 15 MINUTES OFFICE 40533 ROSALINDA TELLEZ OUTPATIEN 1 1 [facility] 10 MINUTES OFFICE 84088 ROSALINDA TELLEZ OUTPATIEN 1 1 [facility] 10 MINUTES OFFICE 23184 [facility] OUTPATIEN 1 1 NURSE T MARTINEZ T VISIT PRACTITIO 15 NER GR MINUTES OFFICE 85614 ROSALINDA CROOKSON OUTPATIEN 1 1 [facility] 10 MINUTES OFFICE 17960 A C OUTPATIEN 1 1 KRYSTAL MOBLEY T VISIT 5 PSC MINUTES OFFICE 25556 ROSALINDA ROSALINDA OUTPATIEN 0 0 [facility] 15 MINUTES OFFICE 03301 A C ELMO OUTPATIEN 0 0 KRYSTAL HEWITT T VISIT PSC 15 MINUTES OFFICE 49966 ROSALINDA TELLEZ OUTPATIEN 0 0 [facility] 15 MINUTES OFFICE 59933 A C OUTPATIEN 0 0 KRYSTAL MOBLEY T VISIT 5 PSC MINUTES OFFICE 97799 ANDREA COPPOLA OUTPATIEN 0 0 MEDICAL RONALDO T VISIT SERV 15 FOUNDATIO MINUTES OFFICE 30095 ROSALINDA TELLEZ OUTPATIEN 0 0 [facility] 10 MINUTES OFFICE 35994 [place] EVELYN ALI CONSULTAT 0 0 MEDICAL ION SERV NEW/ESTAB FOUNDATIO PATIENT 60 MIN OFFICE 94876 A C ELMO OUTPATIEN 0 0 KRYSTAL HEWITT T VISIT PSC 15 MINUTES HOSPITAL [facility]DA [facility]DA [facility] T EMERGENCY 63124 ROSALINDA 0 0 [facility] T VISIT HIGH/URGE NT SEVERITY OFFICE 07568 A C ELMO OUTPATIEN 0 0 KRYSTAL HEWITT T VISIT PSC 15 MINUTES OFFICE 89296 [facility] OUTPATIEN 0 0 NURSE T MARTINEZ T VISIT PRACTITIO 25 NER GR MINUTES OFFICE 14277 A C ELMO OUTPATIEN 0 0 KRYSTAL HEWITT T VISIT 5 PSC MINUTES OFFICE 01763 [place] FLOMENHOF CONSULTAT 0 0 MEDICAL T MARTINEZ ION SERV NEW/ESTAB FOUNDATIO PATIENT 60 MIN HOSPITAL UNIVERSIT - 0 0 Y [facility] T EMERGENCY 03256 UNIVERSIT 0 0 [facility] T VISIT HIGH/URGE NT SEVERITY EMERGENCY 99790 ROSALINDA 0 0 [facility] T VISIT MODERATE SEVERITY HOSPITAL ROSALINDA - 0 0 [facility] OFF[facility] 82837 [place] RADULESCU OUTPATIEN 0 0 MEDICAL VLA T VISIT SERV 15 FOUNDATIO MINUTES HOSPITAL ROSALINDA - 0 0 [facility] T OFFICE 32959 A C OUTPATIEN 0 0 KRYSTAL MOBLEY T VISIT 5 PSC MINUTES OFFICE 88967 A C ELMO OUTPATIEN 0 0 KRYSTAL HEWITT T VISIT PSC 15 MINUTES EMERGENCY 12508 [facility] T VISIT HIGH/URGE NT SEVERITY HOSPITAL ROSALINDA - 0 0 [facility] OUTPATIEN INC T OFFICE 80153 A C OUTPATIEN 0 0 KRYSTAL MOBLEY T VISIT PSC 15 MINUTES OFFICE 42877 A C ELMO, OUTPATIEN 0 0 KRYSTAL MOORE T VISIT PSC 15 MINUTES OFFICE 02407 A C ELMO, OUTPATIEN 0 0 KRYSTAL MOORE T VISIT 5 PSC MINUTES OFFICE 29005 A C ELMO, OUTPATIEN 0 0 KRYSTAL MOORE T VISIT PSC 15 MINUTES HOSPITAL ROSALINDA - 0 0 [facility] T OFFICE 49210 A C ELMO, OUTPATIEN 0 0 KRYSTAL MOORE T VISIT 5 PSC MINUTES OFFICE 48401 A C ELMO, OUTPATIEN 0 0 KRYSTAL MOORE T VISIT PSC 15 MINUTES OFFICE 12323 A C ELMO, OUTPATIEN 0 0 KRYSTAL MOORE T VISIT 5 PSC MINUTES OFFICE 65573 A C ELMO, OUTPATIEN 0 0 KRYSTAL MOORE T VISIT 5 PSC MINUTES OFFICE 13245 ANDREA COPPOLA OUTPATIEN 0 0 MEDICAL DEVIN L T VISIT SERV 10 FOUNDATIO MINUTES OFFICE 26420 A C ELMO, OUTPATIEN 0 0 KRYTSAL MOORE T VISIT 5 PSC MINUTES HOSPITAL [facility] - 0 0 [facility] OFFICE 11022 SANJAY GRACE OUTPATIEN 0 0 [place] MONTERO T VISIT 25 MINUTES OFFICE 34297 A C ELMO, OUTPATIEN 0 0 KRYSTAL MOORE T VISIT 5 PSC MINUTES OFFICE 70497 ANDREA COPPOLA OUTPATIEN 0 0 MEDICAL DEVIN L T VISIT SERV 10 FOUNDATIO MINUTES OFFICE 73660 A C ELMO, OUTPATIEN 0 0 KRYSTAL MOORE T VISIT PSC 15 MINUTES OFFICE 31481 A C ELMO, OUTPATIEN 0 0 KRYSTAL MOORE T VISIT PSC 15 MINUTES OFFICE 66729 A C ELMO, OUTPATIEN 9 9 KRYSTAL MOORE T VISIT PSC 15 MINUTES OFFICE 85082 A C ELMO, OUTPATIEN 9 9 KRYSTAL MOORE T VISIT PSC 15 MINUTES OFFICE 89407 ALINE NOVAK OUTPATIEN 9 9 VISION MARGARITA Howe T VISIT 10 MINUTES OFFICE 38713 ANDREA COPPOLA OUTPATIEN 9 9 MEDICAL DEVIN L T VISIT SERV 10 FOUNDATIO MINUTES OFFICE 82154 A C ELOM, OUTPATIEN 9 9 KRYSTAL MOORE T VISIT PSC 15 MINUTES OFFICE 45045 ANDREA COPPOLA OUTPATIEN 9 9 MEDICAL DEVIN L T NEW 30 SERV MINUTES FOUNDATIO OFFICE 33525 A C ELMO, OUTPATIEN 9 9 KRYSTAL MOORE T VISIT 5 PSC MINUTES HOSPITAL ROSALINDA - 9 9 [facility] OUTPATIEN INC T EMERGENCY 73372 ROSALINDA 9 9 [facility] DEPARTMEN INC T VISIT MODERATE SEVERITY OFFICE 63170 ANDREA MIDBOE-PE OUTPATIEN 9 9 MEDICAL NN, T VISIT SERV RENNY R 15 FOUNDATIO MINUTES OFFICE 32097 A C ELMO, OUTPATIEN 9 9 KRYSTAL MOORE T VISIT PSC 15 MINUTES PERIODIC 45923 A C ELMO, PREVENTIV 9 9 KRYSTAL MOORE E MED EST PSC PATIENT 12-17YRS OFFICE 18272 DEANNE ALICEA, OUTPATIEN 9 9 BREN Dash T VISIT 10 MINUTES OFFICE 45529 SHAHNAZ CHRISTIE, OUTPATIEN 9 9 TAMI GARRETT T VISIT ER ER 15 MINUTES OFFICE 32868 SANJAY GRACE OUTPATIEN 9 9 SHERI WADE Scarlet T VISIT 25 MINUTES OFFICE 42870 ALINE NOVAK OUTPATIEN 9 9 VISION MARGARITA Howe T VISIT 15 MINUTES HOSPITAL ROSALINDA - 9 9 [facility] OUTPATIEN INC T OFFICE 90536 Aidee BORREGO OUTPATIEN 9 9 KRYSTAL MOORE T VISIT PSC 25 MINUTES OFFICE 91362 SANJAY GRACE, CONSULTAT 9 9 SHERI Novak ION NEW/ESTAB PATIENT 40 MIN OFFICE 28639 Aidee BORREGO OUTPATIEN 9 9 KRYSTAL MOORE T VISIT PSC 15 MINUTES OFFICE 19331 [facility] 8 8 HEALTH T VISIT CENTRAL ELEMENTAR 15 BANK ACCT Y SCHOOL MINUTES HEALTH NURSE OFFICE 36819 [facility] OUT[facility]IEN 8 8 HEALTH T VISIT CENTRAL ELEMENTAR 15 BANK ACCT Y SCHOOL MINUTES HEALTH NURSE EMERGENCY 37054 ROSALINDA 8 8 [facility] DEPARTMEN INC T VISIT HIGH/URGE NT SEVERITY HOSPITAL ROSALINDA - 8 8 [facility] OUTPATIEN INC T OFFICE 93038 [facility] OUT[facility] 8 8 HEALTH T VISIT CENTRAL ELEMENTAR 15 BANK ACCT Y SCHOOL MINUTES HEALTH NURSE OFFICE 68961 [facility] OUTPATIEN 8 8 HEALTH T NEW 10 CENTRAL ELEMENTAR MINUTES BANK ACCT Y SCHOOL HEALTH NURSE OFFICE 39885 RADULESCU RADULESCU OUTPATIEN 8 8 , JASMINA C , JASMINA C T VISIT 25 MINUTES OFFICE 45233 Aidee BORREGO OUTPATIEN 8 8 KRYSTAL MOORE T VISIT PSC 15 MINUTES EMERGENCY 86823 ROSALINDA 8 8 [facility] DEPARTMEN INC T VISIT MODERATE SEVERITY HOSPITAL ROSALINDA - 8 8 [facility] OUTPATIEN INC T OFFICE 75320 [facility] 8 8 MEDICAL , JASMINA Rivero T VISIT 5 SERV MINUTES [facility] ROSALINDA - 8 8 [facility] T OFFICE [address] [facility] 8 8 KRYSTAL Gomes VISIT PSC 15 MINUTES
--- NOTE | 2016-10-24 18:20 | Urgent Treatment Center Report ---
History of Present Issue Date/Time Seen by Provider 10/24/161812 Visit Reason Pt arrived:Walked Presenting Problem:PT STATES SHE HAS HAD A KIDNEY STONE FOR TWO WEEKS. REPORTS L KIDNEY PAIN. STATES HISTORY OF KIDNEY STONES Location if Accident: Onset of symptoms date/time:/ or onset unknown for:MEDICAL HX UNKNOWN Have you (or family members/close friends) recently traveled outside the [place]? N If Yes, where/when: Have you had exposure to infectious disease within the past month? TB? Other? Specify: Here w/ mother c/o "I know I have another kidney stone". Pt has an extensive hx of kidney stones and typically when pain starts, waits for stone to pass. Also history of von Willebrand's disease and Sidney-Danlos syndrome. Mild pain x 2 weeks now that has progressed today and is now severe. Remains left mid back. Uncomfortable to lay on left. Nauseated today. Vomited twice since checking in to ER. No fever. Urine dark last 2 weeks but clearer today. No blood, fever, chills. Denies any abdominal pain. requested to be seen in ER at registration but was sent to [facility] first mother reports. Source patient, family Exam Limitations no limitations ALLERGIES Coded Allergies: aspirin (Mild, 09/16/15) cetirizine (From ZYRTEC) (Mild, 09/16/15) duloxetine (From CYMBALTA) (Mild, 09/16/15) latex (Mild, 09/16/15) amoxicillin (VOMITING 09/16/15) ketorolac (From TORADOL) (12/12/15) oxycodone (VOMITING 09/16/15) Home Medications Reported Medications Ahf Viii:C Human/Von Willebr (Humate-P 1 Iu-1 Iu) Lamotrigine (Lamictal) 150 MG PO DAILY Tranexamic Acid (Lysteda) 650 MG PO Q8H PRN BLEEDING DISORDER ETONOGESTREL/ETHINYL ESTRADIOL (Nuvaring Vaginal Ring) 1 ICR VG PRN BC Gabapentin 300 MG PO TID #30 CAPSULE Zolpidem Tartrate (Ambien 10MG) 10 MG PO QHS AMITRIPTYLINE HCL (Amitriptyline Hydrochloride) 10 MG PO DAILY #120 History Medical History General CAD? No Angina: No ME: No Hypertension? No Hyperlipidemia? No CHF? No DVT? No PE? No COPD? No Asthma? No Anemia? No GERD? No Gastric ulcers? No GI Bleed? No Hernia? No Thyroid Problems? No Hypothyroidism? No CVA? No Seizures? Yes Diabetes? No Renal Insuffiency? No UTI? No Stones? Yes BPH? No GB Disease: Yes Nephritic Syndrome? No Asplenia? No Hepatitis? No Sickle Cell Disease? No Arthritis? Yes Migraines? Yes Cataracts? No Glaucoma? No MRSA? No HIV? No TB? No Anxiety? Yes Depression? Yes Cancer? No More? 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 denies: discharge, dysuria, frequency, hesitancy. Musculoskeletal see HPI Skin denies lesions, denies lumps, denies rash Psychiatric/Neurological denies headache, denies weakness, denies other (dizziness) Physical Exam Vital Signs Vital Signs Date Time Temp Pulse Resp B/P Pulse O2 O2 Flow FiO2 Ox Delivery Rate 10/24 1801 97.8 109 20 146/83 100 General Appearance mild distress, sitting on exam table, slightly hunched forward Respiratory Status No: respiratory distress. Cardiovascular no peripheral edema Gastrointestinal normal bowel sounds, non tender, soft, no suprapubic tenderness Back CVA tenderness (L) Neurologic alert, oriented x 3 Mental status normal mood/affect Skin normal color, warm/dry Medical Decision Making LABS/Meds/Orders Pt receiving controlled substance in ED? No Results/Orders Laboratory Tests 10/24/16 1807: Urine Color YELLOW, Urine Appearance Clear, Urine pH 6.0, Ur Specific [place] 1.015, Urine Protein NEGATIVE, Urine Ketones NEGATIVE, Urine Blood TRACE H, Urine Nitrate NEGATIVE, Urine Bilirubin NEGATIVE, Urine Urobilinogen 0.2, Ur Leukocyte Esterase TRACE H, Urine Glucose NEGATIVE Current Medication Orders Sig/[place] Start time Last Medication Dose Route Stop Time Status Admin Promethazine HCl 0 .STK-MED ONE 10/24 1849 DC .ROUTE Promethazine HCl 25 MG ONCE ONE 10/24 1845 DC 10/24 IM 10/24 184 185 Sodium Chloride 25 ML ONCE ONE 10/24 184 DC 10/24 IV 10/24 1858 185 Orders Procedure Date/time Status [facility] URINE DIPSTICK 10/24 1807 Complete Progress [facility] Progress Notes 1 Date 10/24/16 Time 1820 Comment Report called to August in ER. No bed available at this time. Pt to be placed in waiting room until bed available. [facility] Progress Notes 2 Date 10/24/16 Time 1834 Comment pt and mother aware they are waiting for a bed in the ER. Pt uncomfortable. Unable to take NSAIDs d/t chronic medical conditions. Typically takes lortab when pain becomes severe like today but was traveling with mother and sister to [facility] and doesn't have medication with her. Declines pain medication at this time "until nausea controlled". Has taken promethazine and done well in the past. [facility] Progress Notes 3 Date 10/24/16 Time 190 Comment saline lock IV placed, labs drawn, and promethazine administered. ER has a room available. pt being transferred to room 10. Departure Departure Time of Disposition 1902 Disposition Still a Patient Clinical Impression Primary Impression: Acute left flank pain Secondary Impressions: History of kidney stones Condition STABLE Additional Instructions Sent to ER for further evaluation and management at 1904
--- NOTE | 2016-10-24 18:20 | Urgent Treatment Center Report ---
History of Present Issue Date/Time Seen by Provider 10/24/161812 Visit Reason Pt arrived:Walked Presenting Problem:PT STATES SHE HAS HAD A KIDNEY STONE FOR TWO WEEKS. REPORTS L KIDNEY PAIN. STATES HISTORY OF KIDNEY STONES Location if Accident: Onset of symptoms date/time:/ or onset unknown for:MEDICAL HX UNKNOWN Have you (or family members/close friends) recently traveled outside the [place]? N If Yes, where/when: Have you had exposure to infectious disease within the past month? TB? Other? Specify: Here w/ mother c/o "I know I have another kidney stone". Pt has an extensive hx of kidney stones and typically when pain starts, waits for stone to pass. Also history of von Willebrand's disease and Sidney-Danlos syndrome. Mild pain x 2 weeks now that has progressed today and is now severe. Remains left mid back. Uncomfortable to lay on left. Nauseated today. Vomited twice since checking in to ER. No fever. Urine dark last 2 weeks but clearer today. No blood, fever, chills. Denies any abdominal pain. requested to be seen in ER at registration but was sent to [facility] first mother reports. Source patient, family Exam Limitations no limitations ALLERGIES Coded Allergies: aspirin (Mild, 09/16/15) cetirizine (From ZYRTEC) (Mild, 09/16/15) duloxetine (From CYMBALTA) (Mild, 09/16/15) latex (Mild, 09/16/15) amoxicillin (VOMITING 09/16/15) ketorolac (From TORADOL) (12/12/15) oxycodone (VOMITING 09/16/15) Home Medications Reported Medications Ahf Viii:C Human/Von Willebr (Humate-P 1 Iu-1 Iu) Lamotrigine (Lamictal) 150 MG PO DAILY Tranexamic Acid (Lysteda) 650 MG PO Q8H PRN BLEEDING DISORDER ETONOGESTREL/ETHINYL ESTRADIOL (Nuvaring Vaginal Ring) 1 ICR VG PRN BC Gabapentin 300 MG PO TID #30 CAPSULE Zolpidem Tartrate (Ambien 10MG) 10 MG PO QHS AMITRIPTYLINE HCL (Amitriptyline Hydrochloride) 10 MG PO DAILY #120 History Medical History General CAD? No Angina: No PR: No Hypertension? No Hyperlipidemia? No CHF? No DVT? No PE? No COPD? No Asthma? No Anemia? No GERD? No Gastric ulcers? No GI Bleed? No Hernia? No Thyroid Problems? No Hypothyroidism? No CVA? No Seizures? Yes Diabetes? No Renal Insuffiency? No UTI? No Stones? Yes BPH? No GB Disease: Yes Nephritic Syndrome? No Asplenia? No Hepatitis? No Sickle Cell Disease? No Arthritis? Yes Migraines? Yes Cataracts? No Glaucoma? No MRSA? No HIV? No TB? No Anxiety? Yes Depression? Yes Cancer? No More? 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 denies: discharge, dysuria, frequency, hesitancy. Musculoskeletal see HPI Skin denies lesions, denies lumps, denies rash Psychiatric/Neurological denies headache, denies weakness, denies other (dizziness) Physical Exam Vital Signs Vital Signs Date Time Temp Pulse Resp B/P Pulse O2 O2 Flow FiO2 Ox Delivery Rate 10/24 1801 97.8 109 20 146/83 100 General Appearance mild distress, sitting on exam table, slightly hunched forward Respiratory Status No: respiratory distress. Cardiovascular no peripheral edema Gastrointestinal normal bowel sounds, non tender, soft, no suprapubic tenderness Back CVA tenderness (L) Neurologic alert, oriented x 3 Mental status normal mood/affect Skin normal color, warm/dry Medical Decision Making LABS/Meds/Orders Pt receiving controlled substance in ED? No Results/Orders Laboratory Tests 10/24/16 1807: Urine Color YELLOW, Urine Appearance Clear, Urine pH 6.0, Ur Specific [place] 1.015, Urine Protein NEGATIVE, Urine Ketones NEGATIVE, Urine Blood TRACE H, Urine Nitrate NEGATIVE, Urine Bilirubin NEGATIVE, Urine Urobilinogen 0.2, Ur Leukocyte Esterase TRACE H, Urine Glucose NEGATIVE Current Medication Orders Sig/[place] Start time Last Medication Dose Route Stop Time Status Admin Promethazine HCl 0 .STK-MED ONE 10/24 1849 DC .ROUTE Promethazine HCl 25 MG ONCE ONE 10/24 1845 DC 10/24 IM 10/24 184 185 Sodium Chloride 25 ML ONCE ONE 10/24 184 DC 10/24 IV 10/24 1858 185 Orders Procedure Date/time Status [facility] URINE DIPSTICK 10/24 1807 Complete Progress [facility] Progress Notes 1 Date 10/24/16 Time 1820 Comment Report called to August in ER. No bed available at this time. Pt to be placed in waiting room until bed available. [facility] Progress Notes 2 Date 10/24/16 Time 1834 Comment pt and mother aware they are waiting for a bed in the ER. Pt uncomfortable. Unable to take NSAIDs d/t chronic medical conditions. Typically takes lortab when pain becomes severe like today but was traveling with mother and sister to [facility] and doesn't have medication with her. Declines pain medication at this time "until nausea controlled". Has taken promethazine and done well in the past. [facility] Progress Notes 3 Date 10/24/16 Time 190 Comment saline lock IV placed, labs drawn, and promethazine administered. ER has a room available. pt being transferred to room 10. Departure Departure Time of Disposition 1902 Disposition Still a Patient Clinical Impression Primary Impression: Acute left flank pain Secondary Impressions: History of kidney stones Condition STABLE Additional Instructions Sent to ER for further evaluation and management at 1904
--- OUTSIDE RECORDS SUMMARY | 2016-10-24 18:20 | External Medical Summary Rpt ---
Author Author , Organization [employer] Address Unknown Phone Unavailable Care Team Providers Care Post Secondary Professional Name Role Phone A Josefa RICE MD [facility], A Unavailable Unavailable Josefa RICE MD PSC [facility] Unavailable Unavailable INC, [facility] Unavailable Unavailable INC # [id number], [facility] # [id number] CHISHTI AFT, CHISHTI Unavailable Unavailable [facility], Unavailable Unavailable [facility], Unavailable Unavailable [facility] JACEK BRYAN, Unavailable Unavailable JACEK BRYAN JACEK, LINCOLN, Unavailable Unavailable JACEK, LINCOLN [facility], Unavailable Unavailable [facility] [place]available [place]available [place], [facility] [place] [facility] Un[place] [facility] FLOMENHOFT MARTINEZ, Unavailable Unavailable FLOMENHOFT MARTINEZ SHAHNAZ, CHRISTOPHER, Unavailable Unavailable SHAHNAZ, CHRISTOPHER [facility] Unavailable Unavailable [facility] Unavailable [facility]available [facility] Unavailable Unavailable [place], [facility] Unavailable Unavailable [facility] Unavailable Unavailable [facility] Unavailable Unavailable [facility], [facility] Unavailable Unavailable INC, [facility] VAUGHN NATALIE, VAUGHN NATALIE Unavailable Unavailable VAUGHN NATALIE, VAUGHN NATALIE Unavailable Unavailable [facility], Unavailable Unavailable [facility] ABDON MATTHEWS Unavailable Unavailable DEVIN ORR, Unavailable Unavailable DEVIN [facility] Unavailable Unavailable [facility], [facility] Unavailable Unavailable [facility], [facility] KMS NURSE Unavailable Unavailable PRACTITIONER GR, KMSF NURSE PRACTITIONER [facility] Unavailable Unavailable [facility], [facility] DEANNE GRA, DEANNE Unavailable Unavailable GRA DEANNE LOWE, DEANNE Unavailable Unavailable BREN STATON, Unavailable Unavailable DEANNE, BREN W ROGERS JAM, Unavailable Unavailable SUE RANKIN MIDBOE-CHAY, RENNY Unavailable Unavailable R, MIDBOE-CHAY, RENNY R SEAN LASHAUN, SEAN Unavailable Unavailable LASHAUN JEREMY ESTRADA P, Unavailable Unavailable JEREMY ESTRADA P MIDDLETON KARTHIK, Unavailable Unavailable MIDDLETON KARTHIK PETTEY JAM, PETTEY Unavailable Unavailable JAM [facility], Unavailable Unavailable [facility], JASMINA C, Unavailable Unavailable RAD[facility]ES[facility], JASMINA C RANSDELL WAR, Unavailable Unavailable RANSDELL WAR RANSDELL WAR, Unavailable Unavailable RANSDELL WAR NAN INFANTE, Unavailable Unavailable ARELISNAN ADAM ELMO MARCELIAN, ELMO Unavailable Unavailable MARCELINA ELMO MARCELINA, ELMO Unavailable Unavailable MARCELINA ELMO, TERESA, Unavailable Unavailable ELMO, TERESA [id number], Unavailable Unavailable [id number] Unavailable Unavailable [id number] # [id number], [facility] [id number] # [id number] MARGARITA NOVAK, Unavailable Unavailable MARGARITA NOVAK SHASHY Unavailable Unavailable SANJAY XIE Unavailable Unavailable SHERI KUMARI, Unavailable Unavailable SHERI GRACE JEREMY V, Unavailable Unavailable ALEKSANDR BROWNING V [facility] Unavailable Unavailable [facility], [facility] Unavailable [facility]available [facility], [facility] Unavailable Unavailable [facility] NURSE, [facility] NURSE [facility] DEPT OF Unavailable Unavailable PEDIATRIC, [facility] DEPT OF PEDIATRIC [facility], Unavailable Unavailable [facility] RADHA DEB, Unavailable Unavailable RADHA MARTINEZ MCKENZIE, EVELYN MCKENZIE Unavailable Unavailable AILSON ESPINAL JR Unavailable Unavailable TEDDY Terry JR, EDWARD J Purpose Continuity of Care Document - 05-22-2007 through 2016 Problems Code Diagnosis DOS Provider Status 2864 VON 09-21-2013 [facility] 5920 CALCULUS OF 09-21-2013 [facility] 7880 RENAL COLIC 09-21-2013 [facility] 11077 ABDOMINAL 09-20-2013 [facility] PAIN, DEPT OF GENERALIZED PEDIATRIC 4660 ACUTE 08-28-2013 [facility] BRONCHITIS [facility]AB 4618 OTHER ACUTE 07-19-2013 [facility] SINUSITIS [facility]YSICIANS GROUP 23657 CLOSED 03-27-2013 DEANNE GRA DISLOCATION MULTIPLE CERVICAL VERTEBRAE 8470 NECK SPRAIN 03-27-2013 DEANNE GRA AND STRAIN 8471 THORACIC 03-27-2013 DEANNE GRA [facility] STRAIN 8472 LUMBAR 03-27-2013 DEANNE GRA SPRAIN AND STRAIN 10749 CORNEAL 11-15-2011 VAU[facility] NATALIE ABSCESS 22227 NAUSEA 09-01-2011 [facility] 56959 HEMATURIA 08-01-2011 ELOM MARCELINA UNSPECIFIED 462 ACUTE 06-25-2011 A C KRYSTAL PHARYNGITIS PSC 12126 UNSPECIFIED 04-15-2011 ELMO MARCELINA OTALGIA 4619 ACUTE 04-15-2011 [facility] MARCELINA SINUSITIS, UNSPECIFIED 5921 CALCULUS OF 03-14-2011 [facility] HOSPITA V0481 NEED 02-07-2011 [facility] VACCINATION &INOCULATIO N FLU 7088 OTHER 01-31-2011 [facility] SPECIFIED [facility] URTICARIA INC 34853 PAIN IN 01-31-2011 [facility] JOINT, [facility] MULTIPLE INC SITES 81215 GENERALIZED 01-20-2011 [facility] ANXIETY [facility] DIS[facility] 90431 UNSPECIFIED 01-04-2011 JANE CLOSED HOME FRACTURE OF MEDICAL CARPAL EQUIPME BONE 98528 OTHER WRIST 01-04-2011 [facility] SPRAIN AND PHYSICIANS STRAIN GROUP 08800 CONTUSION 01-04-2011 [facility] OF WRIST [facility] INC 32456 PAIN IN 12-21-2010 [facility] FOREARM 7291 UNSPECIFIED 12-21-2010 [facility] AND MYOSITIS 7295 PAIN IN 12-21-2010 [facility] SOFT MIDDLE TISSUES OF SCHOOL LIMB 9249 CONTUSION 09-14-2010 [facility] CO OF MIDDLE UNSPECIFIED SCHOOL SITE 7827 SPONTANEOUS 09-13-2010 [facility] ECCHYMOSES [facility] 7840 HEADACHE 09-08-2010 [facility] 48032 OTHER 09-01-2010 [facility] MALAISE AND [facility] FATIGUE S[facility] 55223 UNSPECIFIED 08-11-2010 [facility] SITE OF [facility] ANKLE SPRAIN AND STRAIN V146 PERSONAL 08-11-2010 [facility] HISTORY OF HOSPITAL ALLERGY TO ANALGESIC AGENT V1507 PERSONAL 08-11-2010 [facility] ALLERGY TO LATEX 4659 ACUTE URIS 07-15-2010 A Josefa REESE [facility] UNSPECIFIED SITE 73056 UNSPECIFIED 07-01-2010 [facility] RETINAL VISION DEFECT 87434 REGULAR 07-01-2010 R[facility] ASTIGMATISM WAR 48894 VISUAL 07-01-2010 [facility] DISCOMFORT WAR 3688 OTHER 07-01-2010 RANSDELL SPECIFIED WAR VISUAL DISTURBANCE S 13409 GENERALIZED 06-23-2010 [facility] PAIN [facility] 5641 IRRITABLE 05-20-2010 [facility] [place] [address] PAIN IN [place] 05-13-2010 [place] [place] AROUND EYE [facility] V2501 GENERAL 05-12-2010 A Josefa GANDARA MD [facility] PRESCRIPTIO N ORAL CONTRACEPTS V2540 UNSPECIFIED 05-12-2010 A Josefa RICE MD [facility] CONTRACEPTI VE SURVEILLANC E 7847 EPISTAXIS 04-09-2010 ROS[facility] CO [facility] 7848 HEMORRHAGE 04-09-2010 [facility] CO FROM THROAT [facility] 7841 THROAT PAIN 03-23-[address] [facility] 6263 PUBERTY 02-24-2010 [place] [facility] 0088 INTESTINAL 01-30-2010 A Josefa RICE INFECTION [facility] DUE TO OTHER ORGANISM NEC 77300 DEHYDRATION 01-30-2010 A Josefa RICE MD [facility] 5589 OTH&UNSPEC 01-30-2010 [facility] NONINFECTIO [facility] US INC GASTROENTER ITIS&COLITI S 04246 PAIN IN 01-20-2010 [place] [facility], MEDICAL ANKLE AND IMAGING ASS FOOT 8448 SPRAIN&STRA 01-20-2010 A Josefa RICE IN OTHER [facility] SPECIFIED SITES KNEE&LEG 26441 CONTUSION 01-20-2010 A Josefa RICE OF FOOT [facility] 9597 INJURY 01-20-2010 [place] OTHER&UNSPE MEDICAL CIFIED KNEE IMAGING ASS LEG ANKLE&FOOT V705 HEALTH 01-20-2010 [place] EXAMINATION MEDICAL OF DEFINED IMAGING ASS SUBPOPULATI ON 5758 OTHER 01-08-2010 [facility] NURSE SPECIFIED PRACTITIONE DISORDER OF R GR GALLBLADDER 21281 DIARRHEA 01-08-2010 [facility] [place] [address] ABDOMINAL 01-08-2010 [facility] NURSE PAIN, LEFT PRACTITIONE UPPER R GR QUADRANT V4579 OTHER 01-08-2010 [facility] NURSE ACQUIRED PRACTITIONE ABSENCE OF R GR ORGAN 13339 OTHER 11-20-2009 [facility] INSUFFICIEN CY NEC 9953 ALLERGY 11-20-2009 [facility] NOT ELSEWHERE CLASSIFIED 13587 ABDOMINAL 11-17-2009 [facility] MEDICAL UNSPECIFIED IMAGING ASS SITE 63317 NAUSEA WITH 11-12-2009 [facility] VOMITING [facility] INC 86089 ABDOMINAL 11-12-2009 [place] PAIN RIGHT MEDICAL UPPER IMAGING ASS QUADRANT 2892 NONSPECIFIC 11-02-2009 Aidee RICE MESENTERIC [facility] [place] [address] ABDOMINAL 10-28-2009 [facility] PAIN RIGHT [facility] LOWER INC QUADRANT 5601 PARALYTIC 10-27-2009 [facility] 0340 STREPTOCOCC 09-24-2009 Aidee LEE MD [facility] THROAT 9233 CONTUSION 09-10-2009 [facility] OF FINGER [facility] 6262 EXCESSIVE 07-01-2009 [place] [facility] [place] FREQUENT SERV [facility] MENSTRUATIO N 2850 SIDEROBLAST 06-12-2009 A Josefa RICE IC ANEMIA PSC E9479 UNSPEC 06-12-2009 A Josefa RICE RX/MEDICINA [facility] L SBSTNC CAUS ADVRS EFF TX USE 470 DEVIATED 06-08-2009 SHASHY WINSTON NASAL SEPTUM 4780 HYPERTROPHY 06-08-2009 SHASHY WINSTON OF NASAL TURBINATES 11435 OTHER 06-08-2009 [place] DISEASES [facility] CAVITY AND SINUSES 8020 NASAL 06-08-2009 [place] BONES, ANESTHESIA CLOSED GROUP [facility] FRACTURE 69419 HEMORRHAGE 06-08-2009 [place] COMPLCAPE [facility] G A HOSPITAL PROCEDURE NEC 4720 CHRONIC 06-05-2009 SHASHY WINSTON RHINITIS 920 CONTUSION 05-25-2009 A Josefa RICE OF FACE [facility] SCALP AND NECK EXCEPT EYE 61136 OTHER 12-25-2008 [facility] CHRONIC VISION ALLERGIC CONJUNCTIVI TIS 49844 UNSPECIFIED 11-24-2008 Aidee RICE MD PSC CONSTIPATIO N 2561 OTHER 11-03-2008 Aidee RICE OVARIAN [facility] [place] [address] SPRAIN AND 11-01-2008 [facility] STRAIN OF MEM H[facility] UNSPECIFIED INC SITE OF HAND 98390 SPRAIN AND 11-01-2008 [place] STRAIN OF MEDICAL UNSPECIFIED IMAGING SITE OF ASSOCIATES FOOT E8498 OTHER 11-01-[address] [place] [address] OF IMAGING OCCURRENCE ASSOCIATES E9278 OTH 11-01-2008 [place] OVEREXERT&S MEDICAL TRENUOUS&RE IMAGING PETITIVE ASSOCIATES MVMNTS/LOAD S 75871 ESOPHAGEAL 10-07-2008 Aidee RICE REFLUX [facility] 6253 DYSMENORRHE 10-07-2008 A Josefa Hoskins MD [facility] V061 NEED PROPH 09-15-2008 A Josefa RICE VAC W/SHAKIRA MOBLEY [facility] DIPHTH-TETA NUS-PERTUSS VAC V202 ROUTINE 09-15-2008 A Josefa RICE INFANT OR [facility] CHILD HEALTH CHECK 7231 CERVICALGIA 08-20-2008 TAMI CHRISTIEER 7241 PAIN IN 08-20-2008 SHAHNAZ, THORACIC GABBY SPINE 3629 UNSPECIFIED 07-25-2008 [facility] RETINAL VISION DISORDER 5368 DYSPEPSIA&O 04-08-2008 [facility]/CO THER SPEC HEALTH DISORDERS [facility] ACCT STOMACH 39689 FEVER 02-23-2008 [facility] UNSPECIFIED [facility] INC 3670 HYPERMETROP 09-10-2007 EM BROWNING V 2879 UNSPECIFIED 07-20-2007 [facility] HOSP HEMORRHAGIC INC CONDITIONS Medications Na ND Rx Da Fi Fi [...] 93 BL 8 ET # 03 93 RI 64 09 09 0 14 14 EA [...] UL NT E HI AN A 00 09 09 0 90 30 EA 24 BR Ac 17 -1 -[address] 09 AU ti 25 5- 5- 00 SI 64 N ve 66 20 20 DE NA 56 11 11 NC 0 PH Y AR MA CY OF CY NT HI AN A ME 00 09 09 0 21 6 EA 24 MO Ac TH 78 -1 -[address] 03 SE ti YL 15 0- 0- 00 SI 71 S ve RI [address] ED 20 11 11 EP NI 7 PH HE SO AR N LO MA A NE CY 4 OF MG CY DO NT SE HI PK AN A SE 59 08 08 0 15 12 EA 23 BR Ac RT 76 -2 -[address] 86 AU ti RA 24 9- 9- 00 SI 70 N ve LI 94 20 20 DE NA NE 00 11 11 NC 1 PH Y 20 AR MA MG CY /M L OF OR AL CY NT CO HI NC AN A BU 00 08 08 3 90 30 EA 23 BR Ac SP 37 -2 -[address] 86 AU ti IR 81 9- 9- 00 SI 67 N ve ON 14 20 20 DE NA E 00 11 11 NC HC 1 PH Y L AR 5 MA MG CY TA OF BL ET CY NT HI AN A OR 50 08 08 4 [...] BL ET CY NT HI AN A CL 00 03 [...] ET NT HI AN A SE 16 04 [...] 03 03 0 30 30 EA 21 TX Ac DE 09 -3 -[address] [...] CY BL NT ET HI AN A 67 01 02 1 30 30 EA 21 BU Ac 25 -3 -[address] 03 RC ti 30 1- 1- 00 SI 96 HE ve 26 20 20 DE TT 31 11 11 0 PH HE AR AT MA HE CY R OF CY NT HI AN A CO 50 01 02 0 30 30 EA 21 ED Ac NC 45 -0 -[address] 03 WA ti ER 80 4- 1- [address] ve TA 58 20 20 DE S 80 11 11 SH ER 1 PH AR AR ON 27 MA CY MG OF TA BL CY ET NT HI AN A 00 01 01 [...] BL CY ET NT HI AN A HY 16 01 [...] ET HI AN A AB 59 01 01 [...] NT HI AN A ME 59 10 01 [...] OP CY S NT HI AN A ST 00 11 11 [...] ET HI AN A ME 59 10 10 [...] 30 20 20 DE 16 10 10 TX 5 PH CH AR AE MA L [...] 20 20 DE RO 10 10 10 TX GE [address] AR AM [...] MG C # TA 07 B 0 RI 00 07 07 1 45 8 EA [...] CY /M NT L HI AN A RI 00 06 06 1 30 5 EA [...] CY OF CY NT HI AN A RI 37 06 06 1 60 30 EA [...] OU P IN C # 07 0 RI 37 06 03 3 30 30 EA [...] CY /M NT L HI AN A 66 01 02 00 28 7 KE 13 RA Ac 47 -2 -1 0. NT 17 DU ti 90 9- 1- UC 30 LE ve 02 20 20 0 [place] 8 SC 18 10 10 U 2 CL VL IN AD IC C PH AR MA CY 00 02 02 00 40 5 EA 16 SH Ac 59 -0 -[address] 18 ti 10 1- 1- 00 SI 75 HY ve 38 20 20 DE 50 10 10 RO 1 PH NA AR LD MA G CY OF CY NT HI AN A CE 00 02 02 00 28 7 EA 16 SH Ac PH 09 -0 -[address] 18 ti AL 33 1- 1- 00 SI 74 HY ve EX 14 20 20 DE IN 70 10 10 RO 5 PH NA 50 AR LD 0 MA G MG CY CA OF PS CY UL NT E HI AN A AM 00 01 01 [...] NT HI AN A 00 01 01 00 30 10 EA 15 RI Ac 25 -1 -[address] 94 SH ti 83 2- 8- 00 SI 06 ER ve 65 20 20 DE 40 10 10 RI 1 PH CH AR AR MA D CY OF CY NT HI AN A FE 00 12 12 00 [...] TA NT BL HI ET AN A ME 00 12 12 00 [...] MG NT /M HI L AN A CA 00 10 12 01 56 28 EA 14 JA Ac TX 55 -2 -[address] 77 CK [...] OF CY NT HI AN A 00 11 [...] 00 56 28 EA 14 JA Ac TX 55 -2 -[address] 77 CK ti LA 50 0- 9- 00 SI 28 SO ve 71 20 20 DE N 0. 55 09 09 WE 35 8 PH ND AR Y MG MA L CY TA BL OF ET CY NT HI AN A 57 10 [...] OF CY NT HI AN A 00 06 10 00 2. 30 AC 20 PE Ac 05 -2 -2 50 CR 75 TE ti 32 4- 2- 0 ED 5 RS ve 45 20 20 O ON 30 09 09 HE 0 AL ZHOU TH SA N GR M OU P IN C CA 00 08 10 02 56 28 EA 13 JA Ac TX 55 -1 -[address] 79 CK ti LA 50 1- 2- 00 SI 86 SO ve 71 20 20 DE N 0. 55 09 09 WE 35 8 PH ND AR Y MG MA L CY TA BL OF ET CY NT HI AN A AZ 00 10 10 00 6. 5 [...] 01 56 28 EA 13 JA Ac TX 55 -1 -[address] 79 CK ti LA 50 1- 4- 00 SI 86 SO ve 71 20 20 DE N 0. 55 09 09 WE 35 8 PH ND AR Y MG MA L CY TA BL OF ET CY NT HI AN A CA 00 08 08 00 56 28 EA 13 JA Ac TX 55 -1 -[address] 79 CK [...] 00 28 28 EA 13 JA Ac TX 55 -2 -[address] 63 CK [...] ET OF CY NT HI AN A TX 59 07 07 00 1. 1 EA 13 RO Ac SO 76 -1 -[address] 51 NE ti RI 25 6- 0- 0 SI 53 ve OS 00 20 20 DE BR TO 70 09 09 YA L 1 PH N 10 AR K 0 MA MC CY G TA OF BL CY ET NT HI AN A CR 00 07 07 00 28 21 EA 13 JA Ac YS 55 -0 -[address] 38 CK ti EL 59 6- 6- 00 SI 86 SO ve LE 04 [...] CY OF CY NT HI AN A RI 37 06 06 00 30 30 EA 12 RI Ac IL 00 -0 -[address] 98 SH ti OS 00 2- 8- 00 SI 81 ER ve EC 45 20 20 DE 50 09 09 RI OT 2 PH CH C AR AR 20 MA D .6 CY MG OF CY TA NT BL HI ET AN A CE 00 06 06 00 [...] HI AN A JU 00 03 06 03 42 21 EA 12 TX Ac NE 55 -2 -[address] 04 DB ti L 59 4- 8- 00 SI 28 OE ve 1 02 20 20 DE -P MG 54 09 09 EN -2 2 PH N 0 AR PA MC MA ME G CY LA TA R BL OF ET CY NT HI AN A JU 00 03 06 02 42 21 EA 12 TX Ac NE 55 -2 -[address] 04 DB ti L 59 4- 4- 00 SI 28 OE ve 1 02 20 20 DE -P MG 54 09 09 EN -2 2 PH N 0 AR PA MC MA ME G CY LA TA R BL OF ET CY NT HI AN A JU 00 03 05 01 42 21 EA 12 TX Ac NE 55 -2 -[address] 04 DB ti L 59 4- 7- 00 SI 28 OE ve 1 02 20 20 DE -P MG 54 09 09 EN -2 2 PH N 0 AR PA MA ME G CY LA TA R BL OF ET CY NT HI AN A CY 00 04 04 00 20 7 EA 12 RI Ac CL 59 -0 -[address] 22 SH ti OB 13 6- 3- 00 SI 34 ER ve EN 25 20 20 DE ZA 60 09 09 RI RI 1 PH CH IN AR AR E MA D 5 CY MG OF TA CY BL NT ET HI AN A CE 00 03 04 00 [...] CY OF CY NT HI AN A JU 00 03 04 00 42 21 EA 12 TX Ac NE 55 -2 -[address] 04 DB ti L 59 4- 9- 00 SI 28 OE ve 1 02 20 20 DE -P MG 54 09 09 EN -2 2 PH N 0 AR PA MA ME G CY LA TA R [...] E NT DR HI OP AN A CY 00 08 04 00 [...] L P AM IN PU C L CY 00 03 03 00 20 7 EA 12 RI Ac CL 59 -2 -[address] 00 SH ti OB 13 0- 6- 00 SI 30 ER ve EN 25 20 20 DE ZA 60 09 09 RI RI 1 PH CH IN AR AR E MA D 5 CY MG OF TA CY BL NT ET HI AN A AZ 00 03 03 [...] 12 NT HI MG AN /5 A 60 03 03 00 18 7 EA 11 RI Ac 25 -0 -[address] 81 SH ti 80 9- 6- 00 SI 10 ER ve 23 20 20 0 DE 91 09 09 RI 6 PH CH AR AR MA D CY OF CY NT HI AN A 00 03 03 00 20 5 EA 12 RI Ac 59 -2 -[address] 00 SH ti 10 0- 6- 00 SI 29 ER ve 34 20 20 DE 90 09 09 RI 1 PH CH AR AR MA D CY OF CY NT HI AN A 00 07 02 00 76 4 AC [...] GR M OU P IN C 00 09 02 00 12 4 AC [...] AD C GR OU P IN C RI 00 12 01 00 30 8 CL [...] 20 AI YC 00 08 08 D TX IN 1 PH CH AR AE 25 [...] NT TA HI BL AN ET A 00 07 08 00 10 3 EA 98 No Ac 78 -3 -[address] 88 t ti 15 0- 4- 00 SI 85 Av ve 25 20 20 DE ai 83 08 08 la 3 PH bl AR e MA CY OF CY NT HI AN A 57 04 08 01 50 16 [...] 25 CY 0 MG TA BL ET RI 00 03 04 00 20 8 CL [...] TH e GR OU P IN C 00 01 03 00 47 16 RI 71 No Ac 09 -2 -2 3. TE 60 t ti 30 1- 5- 00 62 Av ve 01 20 20 0 AI ai 41 08 08 D la 6 PH bl AR e M #3 93 8 AC 00 01 03 00 60 3 CL 16 No Ac ET 12 -1 -2 .0 IN 28 t ti AM 10 6- 5- 00 IC 09 Av ve IN 50 20 20 ai OP 41 08 08 PH la -C 6 AR bl OD MA e EI CY NE 12 0- 12 MG /5 Immunization Name Date Route CVX Reacti Commen Provid Is Given on t er Refuse d IIV3 DAKSHA No VACCIN 2010 [facility] 0.5 ML DOSAGE IM USE IIV3 CROOKS No VACCIN 2009 [facility] 0.5 ML DOSAGE IM USE Procedures Procedure DOS Code Location Performer Comment [facility] [address] [place] [address] MEDICAL AFT CARE/DAY SERV 35 [facility]OUND[facility] MINUTES SBSQ 10494 [facility] 4 MEDICAL AFT CARE/DAY SERV 35 [facility] MINUTES N INJECTION J0696 [facility] 4 PHYSICIAN PHYSICIAN CEFTRIAXO S GROUP S GROUP NE SODIUM PER 250 MG THERAPEUT 64745 [facility] 4 PHYSICIAN PHYSICIAN PROPHYLAC S GROUP S GROUP TIC/DX INJECTION SUBQ/IM CHIROPRAC 36331 DEANNESidney ALICEA TIC 3 GRA GRA MANIPULAT SONNY [place] SPINAL 3-4 REGIONS BLOOD 57495 [facility] COUNT 3 Y Y COMPLETE [facility] AUTO&AUTO DIFRNTL WBC IRON 02615 [facility] BINDING 3 Y Y CAPACITY [facility] COLLECTIO 24126 [facility] N VENOUS 3 Y Y BLOOD [facility] VENIPUNCT URE INJECTION J2550 ELMO ELMO 2 MARCELINA MARCELINA PROMETHAZ INE HCL UP TO 50 MG URINLS 53093 ELMO ELMO DIP 2 MARCELINA MARCELINA STICK/TAB LET REAGNT NON-AUTO MICRSCPY THERAPEUT 49918 ELMO ELMO IC 2 MARCELINA MARCELINA PROPHYLAC TIC/DX INJECTION SUBQ/IM IAADIADOO 71292 A C A C 2 KRYSTAL RICE MD STREPTOCO PSC PSC CCUS GROUP A THERAPEUT 22932 [facility] IC 1 N N INJECTION [facility] IV PUSH HOSPITA HOSPITA EACH NEW DRUG INJECTION J2270 [facility] MORPHINE 1 N N SULFATE [facility] UP [place] [address] [facility] INFUSION 1 N N HYDRATION [facility] HOSPITA HOSPITA ADDITIONA L HOUR COLLECTIO 94231 [facility] N VENOUS 1 N N BLOOD [facility] VENIPUNCT HOSPITA HOSPITA URE INJECTION J2405 [facility] 1 N N ONDANSETR [facility] ON HCL [place]OSPITA [place] [address] [place] [address] [facility] ABDOMEN & 1 N N PELVIS [facility] W/O HOSPITA HOSPITA CONTRAST MATERIAL THER 99532 [facility] PROPH/DX [address] [facility] HOSPITA HOSPITA SINGLE/1S T SBST/DRUG CULTURE 77433 [facility] BACTERIAL 1 N N [facility] QUANTTATI HOSPITA HOSPITA VE COLONY COUNT URINE URINE 70004 [facility] 1 N N TEST [facility] VISUAL HOSPITA HOSPITA COLOR CMPRSN METHS THER 59311 [facility] PROPH/DX 1 N N NJX EA [facility] SEQL IV HOSPITA HOSPITA PUSH SBST/DRUG FAC IIV3 74729 ROS[facility]DA TELLEZ VACCINE 1 [facility]NOTE 3] VIRUS 0.5 ML DOSAGE IM USE RHEUMATOI 80804 [facility] Paul FACTOR 1 [facility] QUANTITAT INC INC SONNY BLOOD 36314 ROS[facility]INDA TELLEZ COUNT 1 [facility] COMPLETE INC INC AUTO&[place] [address] ROS[facility]INDA TELLEZ THYROXINE 1 [facility] TOTAL INC INC ANTINUCLE 59010 ROS[facility]DA TELLEZ AR 1 [facility]OS[facility] ANTIBODIE INC INC S JARROD COLLECTIO 19893 ROSALINDA TELLEZ N VENOUS 1 [facility] [place] [address] [facility] TELLE[facility] THYROID 1 [facility] STIMULATI INC INC NG HORMONE TSH C-REACTIV 41200 ROSALINDA TELLEZ E PROTEIN 1 [facility] INC INC ANTIBODY 92747 ROS[facility] TELLEZ HELICOBAC 1 [facility] TER INC INC PYLORI MICROSOMA 28892 ROSAL[facility] TELLEZ L 1 [facility]OS[facility] ANTIBODIE INC INC S EACH SEDIMENTA 11759 ROSALINDA TELLEZ TION RATE 1 [facility] RBC INC INC NON-AUTOM ATED RADEX 58304 [facility]ELLE[facility] WRIST 1 [facility] COMPLETE INC INC MINIMUM 3 VIEWS WRIST [id number] JANE LARA HAND 1 HOME [facility]ICAL MEDICAL EXT EQUIPME EQUIPME CONTROL COCK-UP PREFAB RADEX 75337 [facility] FOREARM 2 1 Y Y VIEWS [facility] RADEX 96533 [facility] WRIST 1 Y Y COMPLETE [facility] MINIMUM 3 VIEWS THER 85250 [facility] PROPH/DX 1 Y Y NJX IV HOSPITAL HOSPITAL PUSH SINGLE/1S T SBST/DRUG RADEX 98070 [facility] ELBOW 1 Y Y COMPLETE [facility] MINIMUM 3 VIEWS RADEX 46768 [facility] HAND 1 Y Y MINIMUM 3 HOSPITAL HOSPITAL VIEWS INJ J7187 [facility] 1 Y Y RND [facility]OSPITAL HOSPITAL FACTOR CMPLX HUMN RISTOCETI N IU RADIOLOGI 13260 [facility] C 1 Y Y [facility] 2 VIEWS RADEX 35553 [facility] ANKLE 1 Y Y COMPLETE [facility] MINIMUM 3 VIEWS RADIOLOGI 98849 [facility] C 1 Y Y [facility] ON KNEE 3 VIEWS IADNA 76576 [facility]idee BORREGO STREPTOCO 1 KRYSTAL MOBLEY MARCELINA CCUS PSC GROUP A QUANTIFIC ATION FRAMES V2020 [facility] PURCHASES 1 VISION SPHERE V2300 [facility] TRIFOCAL 1 VISION PLANO OR +/-4.00D PER LENS OPHTH 81369 [facility] 1 WAR WAR XM&EVAL COMPRE NEW PT 1/> VST DETERMINA 41236 [facility] TION 1 WAR WAR REFRACTIV E STATE RPR&REFIT 62571 [facility] G 1 VISION SPECTACLE S EXCEPT APHAKIA IIV3 53728 ROSALINDA TELLEZ VACCINE 0 [facility][NOTE 3] VIRUS 0.5 [place] [address] [facility]ALIN[facility] TELLEZ INFUSION 0 [facility] THERAPY/P INC INC ROPHYLAXI S /DX 1ST TO 1 HR THERAPEUT 01794 [facility] TELLEZ IC 0 [facility] INJECTION INC [place] [address] ROSALINDA CROOKSON INFUSION 0 [facility] THERAPY INC INC PROPHYLAX IS/[place] [address] ROSALIN[facility] CROOKSON INFUSION 0 [facility] THERAPY INC INC PROPHYLAX IS/DX EA HOUR URINE 25325 [facility] TELLE[facility] 0 [facility] TEST INC INC VISUAL COLOR CMPRSN METHS CT PELVIS 98233 ROSALIN[facility] TELLEZ W/O 0 [facility] CONTRAST INC INC MATERIAL 3D 59936 [facility]IN[facility] TELLE[facility] RENDERING 0 [facility] [facility] W/INTERP& [place] [address] ROSALINDA TELLEZ LIPASE 0 [facility] URNLS DIP 93197 ROS[facility]DA TELLEZ 0 [facility] STICK/TAB INC INC LET REAGENT AUTO MICROSCOP Y THERAPEUT 29917 ROSALINDA TELLEZ IC 0 [facility] INJECTION INC INC IV PUSH EACH NEW DRUG COMPREHEN 14746 ROSALINDA TELLEZ SIVE 0 [facility] [address] ROSALINDA TELLEZ AMYLASE 0 [place] [address] ROSALINDA TELLEZ ABDOMEN 0 [facility] W/O INC INC CONTRAST MATERIAL BLOOD 09775 ROSALINDA ROSALINDA COUNT 0 [facility] COMPLETE INC INC AUTO&AUTO DIFRNTL WBC RADEX 89807 [place] FOOT 0 [facility] COMPLETE IMAGING MINIMUM 3 ASS VIEWS RADIOLOGI 50679 [place] C 0 [facility] EXAMINATI IMAGING ON KNEE 3 ASS VIEWS RADIOLOGI 54060 [place] C 0 [facility] BRY[facility] EXAMINATI IMAGING ON KNEE ASS 1/2 VIEWS ARTERIAL 15743 [facility] PUNCTURE 0 Y Y WITHDRA[place] [facility] [place] [address] [facility] INFUSION 0 Y Y HYDRATION [facility] EACH ADDITIONA L HOUR GASES 60770 [facility] BLOOD PH 0 Y Y DIRECT [facility] BENITA XCPT PULSE OXIMITRY THER 37325 [facility] PROPH/DX 0 Y JAM [facility] PUSH SINGLE/1S T SBST/DRUG ECG 73463 [facility] ROUTINE 0 Y Y ECG [facility] W/LEAST 12 LDS TRCG ONLY W/O I&R HEPATBL 54011 [place] JACE[place] DUX SYS 0 MEDICAL BRYAN IMG IMAGING GLBLDR ASS THER 82310 ROSALINDA TELLEZ PROPH/DX 0 [facility] NJX IV INC INC PUSH SINGLE/1S T SBST/[place] [address] ROSALINDA TELLEZ INFUSION 0 [facility] THERAPY/P INC INC ROPHYLAXI S /DX 1ST TO 1 HR THERAPEUT 54387 ROSALINDA TELLEZ IC 0 [facility] INJECTION [place] [address] ROSALINDA TELLEZ ABDOMINAL 0 [facility] REAL INC INC TIME W/[place] [address] ROSALINDA TELLEZ INFUSION 0 [facility] THERAPY/P INC INC ROPHYLAXI S /DX 1ST TO 1 [place] [address] ROSALINDA TELLEZ LIPASE 0 [facility] BLOOD 40404 ROSALINDA TELLEZ COUNT 0 [facility] COMPLETE INC INC AUTO&AUTO DIFRNTL WBC URNLS DIP 59620 ROSALINDA TELLEZ 0 [facility] STICK/TAB INC INC LET REAGENT AUTO MICROSCOP Y THERAPEUT 56601 ROSALINDA TELLEZ IC 0 [facility] INJECTION INC INC IV PUSH EACH NEW DRUG BASIC 97649 ROSALINDA TELLEZ METABOLIC 0 [facility] PANEL INC INC CALCIUM TOTAL URINE 57034 ROSALINDA TELLEZ 0 [facility] TEST INC [place] [address] ROSALINDA TELLEZ INFUSION 0 [facility] THER INC INC PROPH ADDL SEQUENTIA L TO 1 HR OBSERVATI 55324 Aidee BORREGO ON/INPATI 0 KRYSTAL MOBLEY [facility] ENT [facility] 40 MINUTES COLLECTIO 25822 ROSALINDA TELLEZ N VENOUS 0 [facility] BLOOD INC INC VENIPUNCT URE COMPREHEN 67693 ROSALINDA TELLEZ SIVE 0 [facility] [address] ROSALINDA TELLEZ AMYLASE 0 [facility] G0378 ROSALINDA TELLEZ OBSERVATI 0 [facility] [place] [address] [place] SE[place] ABDOMEN 0 MEDICAL LASHAUN W/O IMAGING CONTRAST ASS MATERIAL CT PELVIS 16872 [place] W/O 0 MEDICAL LASHAUN CONTRAST IMAGING MATERIAL ASS 3D 33264 [place] [facility] RENDERING 0 MEDICAL LASHAUN IMAGING W/INTERP& ASS POSTPROC DIFF WORK STATION IADNA 93065 Aidee BORREGO, STREPTOCO 0 [facility] GROUP A QUANTIFIC ATION RADEX 23257 [place] JACE[place] FINGR 0 MEDICAL [place] MINIMUM 2 IMAGING VIEWS ASSOCIATE S OPHTH 67779 ALINE VAUGHN ABRAZO [facility] MEDICAL 0 VISION XM&EVAL COMPRHNSV ESTAB PT 1/> FUNDUS 99777 ALINE VAUGHN NATALIE PHOTOGRAP 0 VISION HY W/INTERPR ETATION & REPORT BLOOD 68661 Aidee BORREGO, COUNT 0 KRYSTAL MOORE COMPLETE PSC AUTO&AUTO DIFRNTL WBC ANESTHESI 55165 [place] ZIEMBROSK A NOSE & 0 ANESTHESI I JR, ACCESSORY A GROUP EDWARD J SINUSES PSC NOS SUBMUCOUS 19036 SANJAY GRACE RESCJ 0 [place] INFERIOR TURBINATE PRTL/COMP L SEPTOPLAS 90513 SANJAY PERISHIRLEY TY/SUBMUC 0 [place] OUS RESECJ W/WO CARTILAGE GRF OTHER 2169 [facility] TURBINECT 0 N N [place] [facility] CLOSED 2171 [facility] REDUCTION 0 N N OF NASAL [facility] OTHER 2188 [facility] SEPTOPLAS 0 N N [place] [facility] [place] [address] DEANNE ALICEA, 1/> AREAS 9 BREN W BREN W EACH 15 MINUTES MASSAGE APPL 77135 DEANNE ALICEA, MODALITY 9 BREN W BREN W 1/> AREAS TRACTION MECHANICA L APPLICATI 56703 DEANNE ALICEA, ON 9 BREN W BREN W MODALITY 1/> AREAS HOT/COLD PACKS CHIROPRAC 97116 DEANNE ALICEA, TIC 9 BREN W BREN W MANIPULAT SONNY [place] SPINAL 3-4 REGIONS APPL 33738 DEANNE ALICEA, MODALITY 9 BREN W BREN W 1/> AREAS ELEC STIMJ EA 15 MIN APPL 78370 DEANNE ALICEA, MODALITY 9 BREN W BREN W 1/> AREAS ELEC STIMJ EA 15 MIN APPLICATI 85520 DEANNE ALICEA, ON 9 BREN W BREN W MODALITY 1/> AREAS H[place] [address] DEANNE ALICEA, 1/> AREAS 9 RBEN W BREN W EACH 15 MINUTES MASSAGE APPL 42423 DEANNE ALICEA, MODALITY 9 BREN W BREN W 1/> AREAS TRACTION MECHANICA L CHIROPRAC 02794 DEANNE ALICEA, TIC 9 BREN W BREN W [place] SPINAL 3-[place] [address] DEANNEDEANNE, 1/> AREAS 9 BREN W BREN W EACH 15 MINUTES MASSAGE CHIROPRAC 07572 DEANNE ALICEA, TIC 9 BREN W BREN W MANIPULAT [place] SPINAL 3-4 REGIONS APPL 15191 DEANNE ALICEA, MODALITY 9 BREN W BREN W 1/> AREAS TRACTION MECHANICA L APPLICATI 71348 DEANNE ALICEA, ON 9 BREN W BREN W MODALITY 1/> AREAS HOT/COLD PACKS APPL 46116 DEANNE ALICEA, MODALITY 9 BREN W BREN W 1/> AREAS ELEC STIMJ EA 15 MIN COLLECTIO 81671 Aidee BORREGO, N VENOUS 9 KRYSTAL MOBLEY TERESA BLOOD PSC VENIPUNCT URE RADEX 36046 MALLORY WILLISR 9 MEDICAL JEREMY P MINIMUM 2 IMAGING VIEWS ASSOCIATE S APPL 34564 DEANNE ALICEA, MODALITY 9 BREN W BREN W 1/> [place] [address] DEANNE ALICEA, 1/> AREAS 9 BREN W BREN W EACH 15 MINUTES MASSAGE CHIROPRAC 25543 DEANNE ALICEA, TIC 9 BREN W BREN W MANIPULAT [place] SPINAL 3-4 REGIONS APPL 66021 DEANNE ALICEA, MODALITY 9 BREN W BREN W 1/> AREAS E[place] STIM[place] [address] DEANNE ALICEA, 1/> AREAS 9 BREN W BREN W EACH 15 MINUTES MASSAGE APPLICATI 95726 DEANNE ALICEA, ON 9 BREN W BREN W MODALITY 1/> AREAS HOT/COLD PACKS APPL 64062 DEANNE ALICEA, MODALITY 9 BREN W BREN W 1/> AREAS ELEC STIMJ EA 15 MIN CHIROPRAC 18341 DEANNE ALICEA, TIC 9 BREN W BREN W MANIPULAT [place] SPINAL 3-4 REGIONS APPL 31734 DEANNE ALICEA, MODALITY 9 BREN W BREN W 1/> AREAS TRACTION MECHANICA L APPL 34120 DEANNE ALICEA, MODALITY 9 BREN W BREN W 1/> AREAS TRACTION MECHANICA L APPLICATI 34570 DEANNE ALICEA, ON 9 BREN W BREN W MODALITY 1/> AREAS HOT/COLD PACKS APPL 39318 DEANNE ALICEA, MODALITY 9 BREN W BREN W 1/> AREAS ELEC STIMJ EA 15 MIN CHIROPRAC 17062 DEANNE ALICEA, TIC 9 BREN W BREN W [place]IPULAT [place] SPINAL 3-[address] [place] [address] DEANNE ALICEA, 1/> AREAS 9 BREN W BREN W EACH 15 MINUTES MASSAGE CHIROPRAC 83740 DEANNE ALICEA, TIC 9 BREN W BREN W MANIPULAT [place] SPINAL 3-4 REGIONS APPL 05177 DEANNE ALICEA, MODALITY 9 BREN W BREN W 1/> AREAS ELEC STIMJ EA 15 MIN APPLICATI 03368 DEANNE DEANNE, ON 9 BREN W BREN W MODALITY 1/> AREAS H[place] [address] DEANNE ALICEA, 1/> AREAS 9 BREN W BREN W EACH 15 MINUTES MASSAGE SPHERE V2100 ALINE NOVAK, SINGLE 9 VISION MARGARITA Howe VISION PLANO +/- 4.00 PER LENS FRAMES V2020 ALINE NOVAK, PURCHASES 9 VISION MARGARITA Howe OPHTH 50411 ALINE NOVAK, MEDICAL 9 VISION MARGARITA M XM&EVAL COMPRHNSV ESTAB PT 1/> APPL 02504 DEANNE ALICEA, MODALITY 9 BREN W BREN W 1/> AREAS TRACTION MECHANICA L CHIROPRAC 03840 DEANNE ALICEA, TIC 9 BREN W BREN W [place]IPULAT [place] SPINAL 3-[place] [address] DEANNE ALICEA, 1/> AREAS 9 BREN W BREN W EACH 15 MINUTES MASSAGE APPLICATI 68119 DEANNE ALICEA, ON 9 BREN W BREN W MODALITY 1/> AREAS HOT/COLD PACKS CHIROPRAC 09319 DEANNE LAICEA, TIC 9 BREN W BREN W MANIPULAT S[place] SPINAL 3-4 REGIONS APPL 36254 DEANNE ALICEA, MODALITY 9 BREN W BREN W 1/> AREAS ELEC STIMJ EA 15 MIN APPL 62572 DEANNE ALICEA, MODALITY 9 BREN W BREN W 1/> [place] [address] DEANNE ALICEA, 1/> AREAS 9 BREN W BREN W EACH 15 MINUTES MASSAGE APPLICATI 03175 DEANNE ALICEA, ON 9 BREN W BREN W MODALITY 1/> AREAS [place] [address] DEANNE ALICEA, 1/> AREAS 9 BREN W BREN W EACH 15 MINUTES MASSAGE APPL 61005 DEANNE ALICEA, MODALITY 9 BREN W BREN W 1/> AREAS ELEC STIMJ EA 15 MIN APPL 16500 DEANNE ALICEA, MODALITY 9 BREN W BREN W 1/> AREAS TRACTION MECHANICA L CHIROPRAC 29298 DEANNE ALICEA, TIC 9 BREN W BREN W [place]AT [place] SPINAL 3-[place] [address] DEANNE ALICEA, 1/> AREAS 9 BREN W BREN W EACH 15 MINUTES MASSAGE APPLICATI 68735 DEANNE ALICEA, ON 9 BREN W BREN W MODALITY 1/> AREAS HOT/COLD PACKS APPL 27603 DEANNE ALICEA, MODALITY 9 BREN W BREN W 1/> AREAS TRACTION MECHANICA L CHIROPRAC 68309 DEANNE ALICEA, TIC 9 BREN W BREN W MANIPULAT S[place] SPINAL 3-4 REGIONS APPL 83167 DEANNE ALICEA, MODALITY 9 BREN W BREN W 1/> AREAS ELEC STIMJ [place] [address] [place] [address] DEANNE ALICEA, 1/> AREAS 9 BREN W BREN W EACH 15 MINUTES MASSAGE CHIROPRAC 68724 DEANNE ALICEA, TIC 9 BREN W BREN W MANIPULAT [place] SPINAL 3-4 REGIONS APPL 55052 DEANNE ALICEA, MODALITY 9 BREN W BREN W 1/> AREAS ELEC STIMJ EA 15 MIN APPLICATI 32553 DEANNE ALICEA, ON 9 BREN W BREN W MODALITY 1/> AREAS HOT/COLD PACKS APPL 34469 LARRY ALICEASAY, MODALITY 9 BREN W BREN W 1/> AREAS TRACTION MECHANICA L SELF-CARE 24190 DEANNE ALICEA, /HOME 9 BREN W BREN W MGMT TRAINING EACH 15 MINUTES APPL 00619 DEANNE ALICEA, MODALITY 9 BREN W BREN W 1/> [place] [address] DEANNE ALICEA, 1/> AREAS 9 BREN W BREN W EACH 15 MINUTES MASSAGE APPL 52271 LARRY ALICEASAY, MODALITY 9 BREN W BREN W 1/> AREAS ELEC STIMJ EA 15 MIN APPLICATI 08476 DEANNE ALICEA, ON 9 BREN W BREN W MODALITY 1/> AREAS HOT/COLD PACKS RADEX 04981 DEANNE DEANNE, SPINE 9 BREN W BREN W CERVICAL 2 OR 3 VIEWS RADEX 76860 DEANNE DEANNE, SPINE 9 BREN W BREN W THORACIC 2 VIEWS APPL 04143 SHAHNAZ, SHAHNAZ, MODALITY 9 TAMI GARRETT 1/> AREAS ER ER ULTRASOUN D EA 15 MIN CHIROPRAC 64276 SHAHNAZ, SHAHNAZ, TIC 9 TAMI GARRETT MANIPULAT ER ER SONNY [place] SPINAL 1-2 REGIONS APPL 10695 SHAHNAZ, SHAHNAZ, MODALITY 9 TAMI TAMI 1/> AREAS ER ER ELEC STIMJ UNATTENDE D APPL 69158 SHAHNAZ, SHAHNAZ, MODALITY 9 TAMI TAMI 1/> AREAS ER ER ULTRASOUN D EA 15 MIN THERAPEUT 46119 SHAHNAZ, SHAHNAZ, IC PX 1/> 9 TAMI TAMI AREAS ER ER EACH 15 MIN EXERCISES CHIROPRAC 26145 SHAHNAZ, SHAHNAZ, TIC 9 TAMI TAMI MANIPULAT ER ER SONNY [place] SPINAL 1-2 REGIONS APPL 26682 SHAHNAZ, SHAHNAZ, MODALITY 9 TAMI TAMI 1/> AREAS ER ER ELEC STIMJ UNATTENDE D CHIROPRAC 78397 SHAHNAZ, SHAHNAZ, TIC 9 TAMI TAMI MANIPULAT ER ER SONNY [place] SPINAL 1-2 REGIONS APPL 06739 SHAHNAZ, SHAHNAZ, MODALITY 9 TAMI TAMI 1/> AREAS ER ER ELEC STIMJ UNATTENDE D APPL 41214 SHAHNAZ, SHAHNAZ, MODALITY 9 TAMI TAMI 1/> AREAS ER ER ULTRASOUN D EA 15 MIN CHIROPRAC 10454 SHAHNAZ, SHAHNAZ, TIC 9 TAMI TAMI MANIPULAT ER ER SONNY [place] SPINAL 1-2 REGIONS SBSQ 72151 [facility] 9 N FAMILY NAN CARE/DAY PHYS PSC 35 MINUTES CLOSED 75738 SANJAY GRACE, TREATMENT 9 SHERI Novak NASAL FRACTURE W/[place] [address] [facility] READ, HEAD/BRAI 9 MEDICAL [place] N W/O IMAGING CONTRAST ASSOCIATE MATERIAL S 3D 99443 ROSALINDA TELLEZ RENDERING 9 [facility] W/INTERP INC INC & POSTPROCE SS SUPERVISI ON RADEX 88482 [facility] JACEK, NASAL 9 MEDICAL [place] BONES IMAGING COMPLETE ASSOCIATE MINIMUM 3 S VIEWS RADEX 59786 [place] JACE[place], ORBITS 9 [facility]ICAL [place] COMPLETE IMAGING MINIMUM 4 ASSOCIATE VIEWS S CLOSED 73814 SANJAY GRACE, TREATMENT 9 SHERI Novak NASAL FRACTURE W/O MANIPULAT ION URNLS DIP 75439 ROSALINDA TELLEZ 8 [facility] STICK/TAB INC INC LET REAGENT AUTO MICROSCOP Y BASIC 37575 ROSALINDA TELLEZ METABOLIC 8 [facility] PANEL INC INC CALCIUM TOTAL IMMUNOASS 68674 ROSALINDA TELLEZ AY NFCT 8 [facility] AGT ANTB INC INC QUAL/SEMI REG 1 STEP IAADI 23482 ROSALINDA TELLEZ INFLUENZA 8 [facility] B VIRUS INC INC BLOOD 90175 ROSALINDA TELLEZ COUNT 8 [facility] COMPLETE INC INC AUTO&AUTO DIFRNTL WBC IAADI 28321 ROSALINDA TELLEZ INFFLUENZ 8 [facility] [place] [address] ROSALINDA TELLEZ STREPTOCO 8 [facility] CCUS INC INC GROUP A THER 33115 ROSALINDA TELLEZ PROPH/DX 8 [facility] NJX EA INC INC SEQL IV PUSH SBST/DRUG SPHERE V2100 NALLELY BROWNING, SINGLE 8 ALEKSANDR V ALEKSANDR V VISION PLANO +/- 4.00 PER LENS OPHTH 20165 NALLELY BROWNING, MEDICAL 8 ALEKSANDR V ALEKSANDR V XM&EVAL COMPRHNSV ESTAB PT 1/> FITTING 25355 NALLELY BROWNING, SPECTACLE 8 ALEKSANDR V ALEKSANDR V S XCPT APHAKIA MONOFOCAL FRAMES V2020 NALLELY BROWNING, PURCHASES 8 ALEKSANDR V ALEKSANDR V URNLS DIP 01605 ROSALINDA TELLEZ 8 [facility] STICK/TAB INC INC LET REAGENT AUTO MICROSCOP Y THER 46740 ROSALINDA TELLEZ PROPH/DX 8 [facility] NJX IV INC INC PUSH 1ST SBST/DRUG RADIOLOGI 94669 ROSALINDA TELLEZ C 8 [facility] EXAMINATI INC INC ON ANKLE 2 VIEWS RADEX 42098 ALONSO ESTRADA, ANKLE 8 MEDICAL JEREMY P COMPLETE IMAGING MINIMUM 3 ASSOCIATE VIEWS S RADEX 27349 ROSALINDA TELLEZ FOOT 8 [facility] COMPLETE INC INC MINIMUM 3 VIEWS Encounters Encounter Start End Date Code Location Performer Type Date OFFICE 55314 CAROLINE VELAZQUEZ OUTPATIEN 4 4 FAB FAB T VISIT 15 MINUTES OFFICE 76519 [facility] OUTPATIEN 4 4 PHYSICIAN T NEW 20 S GROUP MINUTES OFFICE 05974 KANE MIDDLETON OUTPATIEN 3 3 KARTHIK KARTHIK T VISIT 15 MINUTES [facility]OSP[facility] JOHANA ESTRADA OUTPATIEN 2 2 T VISIT 10 MINUTES OFFICE 07537 ROSALINDA TELLEZ OUTPATIEN 2 2 [facility] 10 MINUT[facility] OFFICE 37352 ELMO ELMO OUTPATIEN 2 2 MARCELINA MARCELINA T VISIT 15 MINUTES OFFICE 16518 A C OUTPATIEN 2 2 KRYSTAL MOBLEY T VISIT PSC 15 MINUTES OFFICE 36286 ELMO ELMO OUTPATIEN 1 1 MARCELINA MARCELINA T VISIT 15 MINUTES OFFICE 25445 ELMO ELMO OUTPATIEN 1 1 MARCELINA MARCELINA T VISIT 15 MINUTES EMERGENCY 85821 [facility] 1 1 N [facility] T V[facility] HIGH/URGE NT [facility] OUTPATIEN INC T OFFICE 50552 ROSALINDA TELLEZ OUTPATIEN 1 1 [facility] 10 MINUTES OFFICE 09338 [facility] OUTPATIEN 1 1 PHYSICIAN JAM T NEW 20 S GROUP MINUTES HOSPITAL ROSALINDA - 1 1 [facility] OUTPATIEN INC T OFFICE 15828 ROSALINDA TELLEZ OUTPATIEN 1 1 [facility] 15 MINUTES HOSPITAL UNIVERSIT - 1 1 Y [facility] T EMERGENCY 76945 UNIVERSIT 1 1 Y [facility]PITAL T VISIT HIGH/URGE NT SEVERITY OFFICE 28560 ROSALINDA TELLEZ OUTPATIEN 1 1 [facility] 10 MINUTES OFFICE 16270 ROSALINDA TELLEZ OUTPATIEN 1 1 [facility] 10 MINUTES OFFICE 88275 ROSALINDA TELLEZ OUTPATIEN 1 1 [facility] 10 MINUTES OFFICE 07744 A C ELMO OUTPATIEN 1 1 KRYSTAL MOBLEY MARCELINA T VISIT PSC 15 MINUTES OFFICE 66727 ROSALINDA LIPATIEN 1 1 [facility] 10 MINUTES OFFICE 54535 ROSALINDA TELLEZ OUTPATIEN 1 1 [facility] 10 MINUTES OFFICE 96619 ROSALINDA TELLEZ OUTPATIEN 1 1 [facility] 10 MINUTES OFFICE 26148 TRI JACKSONEN 1 1 NURSE KARTHIK T VISIT PRACTITIO 15 NER GR MINUTES EMERGENCY 89807 UNIVERSIT 1 1 Y [facility] T VISIT MODERATE SEVERITY HOSPITAL UNIVERSIT - 1 1 Y [facility] T OFFICE 74012 A C ELMO OUTPATIEN 1 1 KRYSTAL MOBLEY MARCELINA T VISIT PSC 15 MINUTES OFFICE 67950 ROSALINDA TELLEZ OUTPATIEN 1 1 [facility] 10 MINUTES OFFICE 59544 ROSALINDA TELLEZ OUTPATIEN 1 1 [facility] 10 MINUTES OFFICE 02658 A C ELMO OUTPATIEN 1 1 KRYSTAL MOBLEY MARCELINA T VISIT PSC 15 MINUTES OFFICE 99845 ROSALINDA TELLEZ OUTPATIEN 1 1 [facility] 10 MINUTES OFFICE 57076 ROSALINDA TELLEZ OUTPATIEN 1 1 [facility]IS[facility] 5 [facility] MINUTES OFFICE 13412 ROSALINDA TELLEZ OUTPATIEN 1 1 [facility] 15 MINUTES OFFICE 56202 ROSALINDA TELLEZ OUTPATIEN 1 1 [facility] 10 MINUTES OFFICE 96559 ROSALINDA TELLEZ OUTPATIEN 1 1 [facility] 10 MINUTES OFFICE 10575 [facility] OUTPATIEN 1 1 NURSE T MARTINEZ T VISIT PRACTITIO 15 NER GR MINUTES OFFICE 77965 ROSALINDA TELLEZ OUTPATIEN 1 1 [facility] 10 MINUTES OFFICE 99036 A C OUTPATIEN 1 1 KRYSTAL MOBLEY T VISIT 5 PSC MINUTES OFFICE 96972 ROSALINDA ROSALINDA OUTPATIEN 0 0 [facility] 15 MINUTES OFFICE 30237 A C ELMO OUTPATIEN 0 0 KRYSTAL MOBLEY MARCELINA T VISIT PSC 15 MINUTES OFFICE 78110 ROSALINDA ROSALINDA OUTPATIEN 0 0 [facility] 15 MINUTES OFFICE 23835 A C OUTPATIEN 0 0 KRYSTAL MOBLEY T VISIT 5 PSC MINUTES OFFICE 08502 ANDREA COPPOLA OUTPATIEN 0 0 MEDICAL RONALDO T VISIT SERV 15 FOUNDATIO MINUTES OFFICE 13421 ROSALINDA TELLEZ OUTPATIEN 0 0 [facility] 10 MINUTES OFFICE 72825 [place] EVELYN ALI CONSULTAT 0 0 MEDICAL ION SERV NEW/ESTAB FOUNDATIO PATIENT 60 MIN HOSPITAL ROSALINDA - 0 0 [facility] OUTPATIEN INC T OFFICE 14464 A C ELMO OUTPATIEN 0 0 KRYSTAL HEWITT T VISIT PSC 15 MINUTES HOSPITAL ROSALINDA - 0 0 [facility] 14538 ROSALINDA 0 0 [facility] [place] V[place] HIGH/URGE NT SEVERITY OFFICE 63931 A C ELMO OUTPATIEN 0 0 KRYSTAL HEWITT T VISIT PSC 15 MINUTES OFFICE 95491 [facility] OUTPATIEN 0 0 NURSE T MARTINEZ T VISIT PRACTITIO 25 NER GR MINUTES OFFICE 18070 A C ELMO OUTPATIEN 0 0 KRYSTAL HEWITT T VISIT 5 PSC MINUTES OFFICE 00721 [place] FLOMENHOF CONSULTAT 0 0 MEDICAL T MARTINEZ ION SERV NEW/ESTAB FOUNDATIO PATIENT 60 MIN HOSPITAL UNIVERSIT - 0 0 [facility] T EMERGENCY 07402 UNIVERSIT 0 0 Y [facility] T VISIT HIGH/URGE NT SEVERITY EMERGENCY 34128 ROSALINDA 0 0 [facility] [place] VISIT MODERATE SEVERITY HOSPITAL ROSALINDA - 0 0 [facility] 77695 [place] RADUL[facility] OUTPATIEN 0 0 MEDICAL VLA T VISIT SERV 15 FOUNDATIO MINUTES HOSPITAL ROSALINDA - 0 0 [facility] 88874 A C OUTPATIEN 0 0 KRYSTAL MOBLEY T VISIT 5 PSC MINUTES OFFICE 16180 A C ELMO OUTPATIEN 0 0 KRYSTAL HEWITT T VISIT PSC 15 MINUTES HOSPITAL ROSALINDA - 0 0 [facility] EMER[facility] 61837 ROSALINDA 0 0 [facility] T VISIT HIGH/URGE NT SEVERITY OFFICE 61968 A C OUTPATIEN 0 0 KRYSTAL MOBLEY T VISIT PSC 15 MINUTES OFFICE 20483 A C ELMO, OUTPATIEN 0 0 KRYSTAL MOORE T VISIT PSC 15 MINUTES OFFICE 83619 A C ELMO, OUTPATIEN 0 0 KRYSTAL MOORE T VISIT 5 PSC MINUTES OFFICE 86418 A C ELMO, OUTPATIEN 0 0 KRYSTAL MOORE T VISIT PSC 15 MINUTES HOSPITAL ROSALINDA - 0 0 [facility] OUTPATIEN INC T OFFICE 08616 A C ELMO, OUTPATIEN 0 0 KRYSTAL MOORE T VISIT 5 PSC MINUTES OFFICE 07272 A C ELMO, OUTPATIEN 0 0 KRYSTAL MOORE T VISIT PSC 15 MINUTES OFFICE 87061 A C ELMO, OUTPATIEN 0 0 KRYSTAL MOORE T VISIT 5 PSC MINUTES OFFICE 03347 A C ELMO, OUTPATIEN 0 0 KRYSTAL MOORE T VISIT 5 PSC MINUTES OFFICE 02892 ANDREA COPPOLA OUTPATIEN 0 0 MEDICAL DEVIN L T VISIT SERV 10 FOUNDATIO MINUTES OFFICE 67324 A C ELMO, OUTPATIEN 0 0 KRYSTAL MOORE T VISIT 5 PSC MINUTES [facility] 0 0 [facility] OFFICE 64064 SANJAY GRACE OUTPATIEN 0 0 [place] MONTERO T VISIT 25 MINUTES OFFICE 37055 A C ELMO, OUTPATIEN 0 0 KRYSTAL MOORE T VISIT 5 PSC MINUTES OFFICE 49096 JEN ZAFARPATIEN 0 0 MEDICAL DEVIN L T VISIT SERV 10 FOUNDATIO MINUTES OFFICE 12762 A C ELMO, OUTPATIEN 0 0 KRYSTAL MOORE T VISIT PSC 15 MINUTES OFFICE 90184 A C ELMO, OUTPATIEN 0 0 KRYSTAL MOORE T VISIT PSC 15 MINUTES OFFICE 68726 A C ELMO, OUTPATIEN 9 9 KRYSTAL MOORE T VISIT PSC 15 MINUTES OFFICE 46804 A Josefa BORREGO, OUTPATIEN 9 9 KRYSTAL MOORE T VISIT PSC 15 MINUTES OFFICE 35630 ALINE SCARLET OUTPATIEN 9 9 VISION MARGARITA Howe T VISIT 10 MINUTES OFFICE 34462 ANDREA COPPOLA OUTPATIEN 9 9 MEDICAL DEVIN L T VISIT SERV 10 FOUNDATIO MINUTES OFFICE 15195 A Josefa BORREGO, OUTPATIEN 9 9 KRYSTAL MOORE T VISIT PSC 15 MINUTES OFFICE 37894 ANDREA COPPOLA OUTPATIEN 9 9 MEDICAL DEVIN L T NEW 30 SERV MINUTES FOUNDATIO OFFICE 39852 A Josefa BORREGO OUTPATIEN 9 9 KRYSTAL MOORE T VISIT 5 PSC MINUTES EMERGENCY 17717 [facility]INDA 9 9 [facility] DEPART[facility] T VISIT MODERATE SEVERITY [facility] - 9 9 [facility] T OFFICE 57963 [place] [facility] OUTPATIEN 9 9 MEDICAL NN, T VISIT SERV RENNY R 15 FOUNDATIO MINUTES OFFICE 80011 A Josefa BORREGO OUTPATIEN 9 9 KRYSTAL MOORE T VISIT PSC 15 MINUTES PERIODIC 71054 A Josefa BORREGO, PREVENTIV 9 9 KRYSTAL Flores MED EST PSC PATIENT 12-17YRS OFFICE 05454 DEANNE ALICEA OUTPATIEN 9 9 BREN Dash T VISIT 10 MINUTES OFFICE 97939 SHAHNAZ CHRISTIE OUTPATIEN 9 9 TAMI TAMI T VISIT ER ER 15 MINUTES OFFICE 88539 SANJAY GRACE OUTPATIEN 9 9 SHERI Novak T VISIT 25 MINUTES OFFICE 01219 ALINE NOVAK OUTPATIEN 9 9 VISION MARGARITA Howe T VISIT 15 MINUTES [facility]OSP[facility] - 9 9 [facility] T OFFICE 80610 SANJAY GRACE, CONSULTAT 9 9 SHERI Novak ION NEW/ESTAB PATIENT 40 MIN OFFICE 87107 Aidee BORREGO OUTPATIEN 9 9 KRYSTAL MOORE T VISIT PSC 25 MINUTES OFFICE 94177 Aidee BORREGO OUTPATIEN 9 9 KRYSTAL MOORE T VISIT PSC 15 MINUTES OFFICE 92791 [facility] OUTPATIEN 8 8 HEALTH T VISIT CENTRAL ELEMENTAR 15 BANK ACCT Y SCHOOL MINUTES HEALTH NURSE OFFICE 48438 [facility] OUTPATIEN 8 8 HEALTH T VISIT CENTRAL ELEMENTAR 15 BANK ACCT Y SCHOOL MINUTES HEALTH NURSE EMERGENCY 08615 [facility] 8 8 [facility] DEPART[facility] T VISIT HIGH/URGE NT SEVERITY [facility] - 8 8 [facility] OUT[facility] T OFFICE 37185 [facility] OUTPATIEN 8 8 HEALTH T VISIT CENTRAL ELEMENTAR 15 BANK ACCT Y SCHOOL MINUTES HEALTH NURSE OFFICE 81474 [facility] SPENCER OUTPATIEN 8 8 HEALTH T NEW 10 CENTRAL ELEMENTAR MINUTES BANK ACCT Y SCHOOL HEALTH NURSE OFFICE 42406 RADULESCU RADULESCU OUTPATIEN 8 8 , JASMINA C , JASMINA C T VISIT 25 MINUTES OFFICE 82974 Aidee BORREGO OUTPATIEN 8 8 KRYSTAL MOORE T VISIT PSC 15 MINUTES [facility]OSP[facility] - 8 8 [facility] OUTPATI[facility] INC T EMERGENCY 06482 [facility]ALINDA 8 8 [facility] DEPARTMEN INC T VISIT MODERATE SEVERITY OFFICE 15722 [place] [facility] 8 8 MEDICAL , JASMINA Rivero T VISIT 5 SERV MINUTES FOUNDATIO OFFICE 15231 [place]I [place] 8 8 KRYSTAL Gomes VISIT PSC 15 MINUTES [facility] ROSALINDA - 8 8 [facility] OUTPATIEN [facility] T
--- OUTSIDE RECORDS SUMMARY | 2016-10-24 18:20 | External Medical Summary Rpt ---
Author Author , Organization [employer] Address Unknown Phone Unavailable Care Team Providers Care Component Design Engineer Name Role Phone A Josefa RICE MD PSC, A Unavailable Unavailable Josefa RICE MD PSC [facility] Unavailable Unavailable INC, [facility] Unavailable Unavailable INC # [id number], [facility] [id number] CHISHTI AFT, CHISHTI Unavailable Unavailable [facility], Unavailable Unavailable [facility], Unavailable Unavailable [facility] JCAEK BRYAN, Unavailable Unavailable JACEK BRYAN JACEK, LINCOLN, Unavailable Unavailable JACEK, LINCOLN [facility], Unavailable Unavailable [facility] Unavailable Unavailable [place], [facility] [place] [facility] Un[place] [facility] FLOMENHOFT MARTINEZ, Unavailable Unavailable FLOMENHOFT MARTINEZ SHAHNAZ, CHRISTOPHER, Unavailable Unavailable SHAHNAZ, CHRISTOPHER [facility] Unavailable Unavailable [facility] Unavailable Unavailable [facility] Unavailable Unavailable [place], [facility] Unavailable [facility]available [facility] Unavailable Unavailable [facility], [facility] Unavailable Unavailable [facility], [facility] Unavailable Unavailable INC, [facility] VAUGHN NATALIE, VAUGHN NATALIE Unavailable Unavailable VAUGHN NATALIE, VAUGHN NATALIE Unavailable Unavailable [facility], Unavailable Unavailable [facility] ABDON MATTHEWS Unavailable Unavailable DEVIN ORR, Unavailable Unavailable DEVIN COPPOLA [facility] Unavailable Unavailable PHARMACY, [facility] Unavailable Unavailable [facility], [facility] NURSE Unavailable Unavailable [...] NAN INFANTE, Unavailable Unavailable ARELISNAN ADAM ELMO MARCELINA, ELMO Unavailable Unavailable MARCELINA ELMO MARCELINA, ELMO Unavailable Unavailable MARCELINA ELMO, TERESA, Unavailable Unavailable ELMO, TERESA [id number], Unavailable Unavailable [id number] Unavailable Unavailable [id number] # [id number], [facility] [id number] # [id number] MARGARITA NOVAK, Unavailable Unavailable MARGARITA NOVAK SHASHY Unavailable Unavailable SANJAY XIE Unavailable Unavailable SHERI KUMARI, Unavailable Unavailable SHERI GRACE JEREMY V, Unavailable Unavailable ALEKSANDR BROWNING V [facility] Unavailable Unavailable [facility], [facility] Unavailable Unavailable [facility], [facility] Unavailable Unavailable [facility] HEALTH NURSE, [facility] NURSE [facility] DEPT OF [facility]available Unavailable PEDIATRIC, [facility] DEPT OF PEDIATRIC [facility], Unavailable Unavailable [facility] RADHA DEB, Unavailable Unavailable RADHA MARTINEZ MCKENZIE, EVELYN MCKENZIE Unavailable Unavailable ALISON ESPINAL JR Unavailable Unavailable TEDDY Terry JR, EDWARD J Purpose Continuity of Care Document - 05-22-2007 through 2016 Problems Code Diagnosis DOS Provider Status 2864 VON 09-21-2013 [place] [facility] DIS[facility] 5920 CALCULUS OF 09-21-2013 [place] [facility] 7880 RENAL COLIC 09-21-2013 [place] [facility] 25304 ABDOMINAL 09-20-2013 [facility] PAIN, DEPT OF GENERALIZED PEDIATRIC 4660 ACUTE 08-28-2013 [facility] BRONCHITIS FAB 4618 OTHER ACUTE 07-19-2013 [facility] 35513 CLOSED 03-27-2013 DEANNE GRA DISLOCATION MULTIPLE CERVICAL VERTEBRAE 8470 NECK SPRAIN 03-27-2013 DEAN[facility] GRA AND STRAIN 8471 THORACIC 03-27-2013 DEANNE GRA SPRAIN AND STRAIN 8472 LUMBAR 03-27-2013 DEANNE GRA SPRAIN AND STRAIN 70843 CORNEAL 11-15-2011 [facility] NATALIE ABSCESS 97779 NAUSEA 09-01-2011 [facility] [employer] [facility] 63271 HEMATURIA 08-01-2011 ELMO MARCELINA UNSPECIFIED 462 ACUTE 06-25-2011 A C KRYSTAL PHARYNGITIS PSC 52176 UNSPECIFIED 04-15-2011 ELMO MARCELINA OTALGIA 4619 ACUTE 04-15-2011 [facility] MARCELINA SINUSITIS, UNSPECIFIED 5921 CALCULUS OF 03-14-2011 [facility] HOSPITA V0481 NEED 02-07-2011 [facility] VACCINATION &INOCULATIO N FLU 7088 OTHER 01-31-2011 [facility] SPECIFIED [facility] URTICARIA INC 30010 PAIN IN 01-31-2011 [facility] JOINT, [facility] MULTIPLE INC SITES 62307 GENERALIZED 01-20-2011 [facility] ANXIETY [facility] DISORDER [facility] 49615 UNSPECIFIED 01-04-2011 J[facility] CLOSED HOME FRACTURE OF MEDICAL CARPAL EQUIPME BONE 18433 OTHER WRIST 01-04-2011 [facility] SPRAIN AND PHYSICIANS STRAIN GROUP 50544 CONTUSION 01-04-2011 [facility] OF WRIST [facility] INC 25820 PAIN IN 12-21-2010 [facility] FOREARM 7291 UNSPECIFIED 12-21-2010 [facility] [place] AND MYOSITIS 7295 PAIN IN 12-21-2010 [facility] SOFT MIDDLE TISSUES OF SCHOOL LIMB 9249 CONTUSION 09-14-2010 [facility] CO OF MIDDLE UNSPECIFIED SCHOOL SITE 7827 SPONTANEOUS 09-13-2010 [facility] ECCHYMOSES [facility] 7840 HEADACHE 09-08-2010 [facility] 64473 OTHER 09-01-2010 [facility] MALAISE AND [facility] FATIGUE [facility] 27229 UNSPECIFIED 08-11-2010 [facility] ANKLE SPRAIN AND STRAIN V146 PERSONAL 08-11-2010 [facility] HISTORY OF HOSPITAL ALLERGY TO ANALGESIC AGENT V1507 PERSONAL 08-11-2010 [facility] ALLERGY TO LATEX 4659 ACUTE URIS 07-15-2010 A Josefa REESE [facility] UNSPECIFIED SITE 52970 UNSPECIFIED 07-01-2010 [facility] RETINAL VISION DEFECT 91406 REGULAR 07-01-2010 [facility] ASTIGMATISM WAR 45234 VISUAL 07-01-2010 [facility] DISCOMFORT WAR 3688 OTHER 07-01-2010 [facility] SPECIFIED WAR VISUAL DISTURBANCE S 52135 GENERALIZED 06-23-2010 [facility] PAIN [facility] 5641 IRRITABLE 05-20-2010 [facility] [place] [address] PAIN [place] 05-13-2010 [facility] AROUND EYE [facility] V2501 GENERAL 05-12-2010 A Josefa GANDARA MD [facility] PRESCRIPTIO N ORAL CONTRACEPTS V2540 UNSPECIFIED 05-12-2010 A Josefa RICE MD [facility] CONTRACEPTI VE SURVEILLANC E 7847 EPISTAXIS 04-09-2010 [facility] CO [facility] 7848 HEMORRHAGE 04-09-2010 [facility] FROM THROAT [facility] 7841 THROAT PAIN 03-23-2010 ROSALINDA [facility] 6263 PUBERTY 02-24-2010 [place] [facility] 0088 INTESTINAL 01-30-2010 A Josefa RICE INFECTION [facility] DUE TO OTHER ORGANISM NEC 80272 DEHYDRATION 01-30-2010 A Josefa RICE MD [facility] 5589 OTH&UNSPEC 01-30-2010 [facility] NONINFECTIO [facility] US INC GASTROENTER ITIS&COLITI S 57448 PAIN IN 01-20-2010 [place] [facility], MEDICAL ANKLE AND IMAGING ASS FOOT 8448 SPRAIN&STRA 01-20-2010 A Josefa RICE IN OTHER [facility] SPECIFIED SITES KNEE&LEG 43226 CONTUSION 01-20-2010 A Josefa RICE OF FOOT [facility] 9597 INJURY 01-20-2010 [place] OTHER&UNSPE MEDICAL CIFIED KNEE IMAGING ASS LEG ANKLE&FOOT V705 HEALTH 01-20-2010 [place] EXAMINATION MEDICAL OF DEFINED IMAGING ASS SUBPOPULATI ON 5758 OTHER 01-08-2010 [facility] N[facility]SE SPECIFIED PRACTITIONE DISORDER OF R GR GALLBLADDER 26045 DIARRHEA 01-08-2010 [facility] [place] [address] ABDOMINAL 01-08-2010 [facility]SE PAIN, LEFT PRACTITIONE UPPER R GR QUADRANT V4579 OTHER 01-08-2010 [facility]SE ACQUIRED PRACTITIONE ABSENCE OF R GR ORGAN 60484 OTHER 11-20-[address] [facility] INSUFFICIEN CY NEC 9953 ALLERGY 11-20-2009 [facility] NOT ELSEWHERE CLASSIFIED 27761 ABDOMINAL 11-17-2009 [facility] PAIN, MEDICAL UNSPECIFIED IMAGING ASS SITE 06141 NAUSEA WITH 11-12-2009 [facility] VOMITING [facility] 97352 ABDOMINAL 11-12-2009 [place] PAIN RIGHT MEDICAL UPPER IMAGING ASS QUADRANT 2892 NONSPECIFIC 11-02-2009 Aidee RICE MESENTERIC [facility] [place] [address] ABDOMINAL 10-28-2009 [facility] PAIN RIGHT [facility] LOWER INC QUADRANT 5601 PARALYTIC 10-27-2009 [facility] ILEUS MEDICAL IMAGING ASS 0340 STREPTOCOCC 09-24-2009 Aidee LEE MD [facility] THROAT 9233 CONTUSION 09-10-2009 [facility] OF FINGER [facility] 6262 EXCESSIVE 07-01-2009 [place] MED[facility] OR FREQUENT SERV FOUNDATIO MENSTRUATIO N 2850 SIDEROBLAST 06-12-2009 A Josefa RICE IC ANEMIA PSC E9479 UNSPEC 06-12-2009 A Josefa RICE RX/MEDICINA [facility] L SBSTNC CAUS ADVRS EFF TX USE 470 DEVIATED 06-08-2009 SHASHY WINSTON NASAL SEPTUM 4780 HYPERTROPHY 06-08-2009 SHASHY WINSTON OF NASAL TURBINATES 94886 OTHER 06-08-2009 [facility] DISEASES [facility] CAVITY AND SINUSES 8020 NASAL 06-08-2009 [place] BONES, ANESTHESIA CLOSED GROUP [facility] FRACTURE 25394 HEMORRHAGE 06-08-2009 [facility] PROCED[facility] NEC 4720 CHRONIC 06-05-2009 SHASHY WINSTON RHINITIS 920 CONTUSION 05-25-2009 A Josefa RICE OF FACE [facility] SCALP AND NECK EXCEPT EYE 19883 OTHER 12-25-2008 [facility] CHRONIC VISION ALLERGIC CONJUNCTIVI TIS 35867 UNSPECIFIED 11-24-2008 Aidee RICE MD PSC CONSTIPATIO N 2561 OTHER 11-03-2008 Aidee RICE OVARIAN [facility] [place] [address] SPRAIN AND 11-01-2008 [facility] STRAIN OF [facility] UNSPECIFIED INC SITE OF HAND 41986 SPRAIN AND 11-01-2008 [place] STRAIN OF MEDICAL UNSPECIFIED IMAGING SITE OF ASSOCIATES FOOT E8498 OTHER 11-01-[address] [place] [address] OF IMAGING OCCURRENCE ASSOCIATES E9278 OTH 11-01-2008 [place] OVEREXERT&S MEDICAL TRENUOUS&RE IMAGING PETITIVE ASSOCIATES MVMNTS/LOAD S 93250 ESOPHAGEAL 10-07-2008 Aidee RICE REFLUX [facility] 6253 DYSMENORRHE 10-07-2008 A Josefa Hoskins MD [facility] V061 NEED PROPH 09-15-2008 A Josefa RICE VAC W/SHAKIRA MOBLEY [facility] DIPHTH-TETA NUS-PERTUSS VAC V202 ROUTINE 09-15-2008 A Josefa RICE INFANT OR [facility] CHILD HEALTH CHECK 7231 CERVICALGIA 08-20-2008 TAMI CHRISTIEER 7241 PAIN IN 08-20-2008 SHAHNAZ, THORACIC GABBY SPINE 3629 UNSPECIFIED 07-25-2008 [facility] RETINAL VISION DISORDER 5368 DYSPEPSIA&O 04-08-2008 [facility] THER SPEC HEALTH DISORDERS [facility]TR[facility] ACCT STOMACH 48262 FEVER 02-23-2008 [facility] UNSPECIFIED [facility] INC 3670 HYPERMETROP 09-10-2007 EM BROWNING V 2879 UNSPECIFIED 07-20-2007 [facility] HOSP HEMORRHAGIC INC CONDITIONS Medications Na [...] 93 BL 8 ET # [address] 64 09 09 0 14 14 EA [...] 0- 0- 00 SI [address] ED 20 [...] 03 03 0 30 30 EA 21 MD Ac DE 09 -3 -[address] 92 CH ti RA 20 1- 1- 00 SI 30 EL ve LL 38 20 20 DE MA 50 11 11 N XR 1 PH PEI AR HN 15 MA D CY MG [...] 30 20 20 DE 16 10 10 MD 5 PH CH AR AE MA L [...] 20 20 DE RO 10 10 10 MD GE [address] AR AM [...] MG C # TA [address] 00 07 07 1 45 8 EA [...] CY /M NT L HI AN A CT 00 06 06 1 30 5 EA [...] CY OF CY NT HI AN A CT 37 06 06 1 60 30 EA [...] OU P IN C # [address] 37 06 03 3 30 30 EA [...] 01 56 28 EA 14 JA Ac MD 55 -2 -[address] 77 CK [...] 00 56 28 EA 14 JA Ac MD 55 -2 -[address] 77 CK [...] ON 52 08 09 HE 0 AL ZOHU TH SA N GR M OU P [...] 02 56 28 EA 13 JA Ac MD 55 -1 -[address] 79 CK [...] 01 56 28 EA 13 JA Ac MD 55 -1 -[address] 79 CK ti LA 50 1- 4- 00 SI 86 SO ve 71 20 20 DE N 0. 55 09 09 WE 35 8 PH ND AR Y MG MA L CY TA BL OF ET CY NT HI AN A CA 00 08 08 00 56 28 EA 13 JA Ac MD 55 -1 -[address] 79 CK [...] 00 28 28 EA 13 JA Ac MD 55 -2 -[address] 63 CK [...] ET OF CY NT HI AN A MD 59 07 07 00 1. 1 EA 13 RO Ac SO 76 -1 -[address] 25 6- 0- 0 SI 53 ve [...] CY OF CY NT HI AN A CT 37 06 06 00 30 30 EA [...] 03 06 03 42 21 EA 12 MD Ac NE 55 -2 -[address] 04 DB ti L 59 4- 8- 00 SI 28 OE ve 1 02 20 20 DE -P MG 54 09 09 EN -2 2 PH N 0 AR PA MC MA ME G CY LA TA R BL OF ET CY NT HI AN A JU 00 03 06 02 42 21 EA 12 MD Ac NE 55 -2 -[address] 04 DB ti L 59 4- 4- 00 SI 28 OE ve 1 02 20 20 DE -P MG 54 09 09 EN -2 2 PH N 0 AR PA MC MA ME G CY LA TA R BL OF ET CY NT HI AN A JU 00 03 05 01 42 21 EA 12 MD Ac NE 55 -2 -[address] [...] 20 DE ZA [address] 1 PH CH IN AR AR E [...] 03 04 00 42 21 EA 12 MD Ac NE 55 -2 -[address] [...] 20 DE ZA [address] 1 PH CH IN AR AR E [...] AD C GR OU P IN C CT 00 12 01 00 30 8 CL [...] 20 AI YC 00 08 08 D MD IN 1 PH CH AR AE 25 [...] 25 CY 0 MG TA BL ET CT 00 03 04 00 20 8 CL [...] Location Performer Comment [facility] [address] [place] [address] MEDICAL AFT CARE/DAY SERV 35 FOUNDATIO MINUTES SBSQ 66579 [facility] 4 MEDICAL AFT CARE/DAY SERV 35 FOUNDATIO MINUTES N INJECTION J0696 [facility] 4 PHYSICIAN PHYSICIAN CEFTRIAXO S GROUP S GROUP NE SODIUM PER 250 MG THERAPEUT 49023 [facility] 4 PHYSICIAN PHYSICIAN PROPHYLAC S GROUP S GROUP TIC/DX INJECTION SUBQ/IM CHIROPRAC 42499 DEANNESidney ALICEA TIC 3 GRA GRA MANIPULAT SONNY [place] SPINAL 3-4 REGIONS BLOOD 81239 [facility] COUNT [address] [facility] AUTO&AUTO [place]IFRNTL WBC IRON 47911 [facility] BINDING [address] [facility] COLLECTIO 94225 [facility] N VENOUS [address] [facility] VENIPUNCT URE INJECTION J2550 ELMO ELMO 2 MARCELINA MARCELINA PROMETHAZ INE HCL UP TO 50 MG URINLS 76269 ELMO ELMO DIP 2 MARCELINA MARCELINA STICK/TAB LET REAGNT NON-AUTO MICRSCPY THERAPEUT 26456 ELMO ELMO IC 2 MARCELINA MARCELINA PROPHYLAC TIC/DX INJECTION SUBQ/IM IAADIADOO 86865 A C A C 2 KRYSTAL RICE MD STREPTOCO PSC PSC CCUS GROUP A THERAPEUT 09469 [facility] IC 1 N N INJECTION [facility] IV PUSH HOSPITA HOSPITA EACH NEW DRUG INJECTION J2270 [facility] MORPHINE 1 N N SULFATE [facility] UP [place] [address] [facility] INFUSION [address] [facility] HOSPITA HOSPITA ADDITIONA L HOUR COLLECTIO 63684 [facility] N VENOUS 1 N N BLOOD [facility] VENIPUNCT HOSPITA HOSPITA URE INJECTION J2405 [facility] 1 N N ONDANSETR [facility] ON HCL HOSPITA [place]OSP[place] [address] [place] [address] [facility] ABDOMEN & 1 N N PELVIS [facility] W/O HOSPITA HOSPITA CONTRAST MATERIAL THER 42416 [facility] PROPH/DX 1 N N NJX IV [facility] HOSPITA HOSPITA SINGLE/1S T SBST/DRUG CULTURE 61825 [facility] BACTERIAL 1 N N [facility] QUANTTATI HOSPITA HOSPITA VE COLONY COUNT URINE URINE 17690 [facility] 1 N N TEST [facility] VISUAL HOSPITA HOSPITA COLOR CMPRSN METHS THER 37466 [facility] PROPH/DX 1 N N NJX EA [facility] SEQL IV HOSPITA HOSPITA PUSH SBST/DRUG FAC IIV3 42302 ROSALINDA TELLEZ VACCINE 1 [facility] VIRUS 0.5 ML DOSAGE IM USE RHEUMATOI 67396 [facility]DA Paul FACTOR 1 [facility] QUANTITAT INC INC SONNY BLOOD 15491 ROS[facility]INDA TELLEZ COUNT 1 [facility] COMPLETE INC INC AUTO&[place] [address] ROSALINDA TELLEZ THYROXINE 1 [facility] TOTAL INC INC ANTINUCLE 71538 ROSALINDA TELLEZ AR 1 [facility] ANTIBODIE INC INC S JARROD COLLECTIO 72867 ROSALINDA TELLEZ N VENOUS 1 [facility] HOSP [place] [address] ROSALINDA TELLEZ THYROID 1 [facility]OS[facility] STIMULATI INC INC NG HORMONE TSH C-REACTIV 05811 ROS[facility]INDA TELLEZ E PROTEIN 1 [facility]OS[facility] INC INC ANTIBODY 28254 ROSALINDA TELLEZ HELICOBAC 1 [facility] TER INC INC PYLORI MICROSOMA 84504 ROSAL[facility]DA TELLEZ L 1 [facility] ANTIBODIE INC INC S EACH SEDIMENTA 71177 ROSALINDA TELLEZ TION RATE 1 [facility] HOS[facility] RBC INC INC NON-AUTOM ATED RADEX 65126 ROSALINDA TELLEZ WRIST 1 [facility]OS[facility] COMPLETE INC INC MINIMUM 3 VIEWS WRIST L3908 JANE LARA HAND 1 [facility] MEDICAL MEDICAL EXT EQUIPME EQUIPME CONTROL COCK-UP PREFAB RADEX 67889 [facility] FOREARM 2 1 Y Y VIEWS [facility] HOSPITAL RADEX 66746 [facility] WRIST [address] [facility] MINIMUM 3 VIEWS THER 55985 [facility] PROPH/DX 1 Y Y NJX IV HOSPITAL HOSPITAL PUSH SINGLE/1S T SBST/DRUG RADEX 05939 [facility] ELBOW [address] [facility] MINIMUM 3 VIEWS RADEX 46591 [facility] HAND 1 Y Y MINIMUM 3 HOSPITAL HOSPITAL VIEWS INJ J7187 [facility] 1 Y Y RND HOSPITAL HOSPITAL FACTOR CMPLX HUMN RISTOCETI N IU RADIOLOGI 84868 [facility] C 1 [facility] 2 VIEWS RADEX 31282 [facility] ANKLE 1 Y Y COMPLETE [facility] HOSPITAL MINIMUM 3 VIEWS RADIOLOGI 86874 [facility] C [address] [facility] ON KNEE 3 VIEWS IADNA 06045 Aidee BORREGO STREPTOCO 1 KRYSTAL MOBLEY MARCELINA CCUS PSC GROUP A QUANTIFIC ATION FRAMES V2020 ALINE ESTRADA PURCHASES 1 VISION SPHERE V2300 ALINE ESTRADA TRIFOCAL 1 VISION PLANO OR +/-4.00D PER LENS OPHTH 43445 [facility] 1 WAR WAR XM&EVAL COMPRE NEW PT 1/> VST DETERMINA 40928 [facility] TION 1 WAR WAR REFRACTIV E STATE RPR&REFIT 84069 ALINE ESTRADA G 1 VISION SPECTACLE S EXCEPT APHAKIA IIV3 37625 ROSALINDA TELLEZ VACCINE 0 [facility] VIRUS 0.5 [place] [address] ROSALINDA TELLEZ INFUSION 0 [facility] THERAPY/P INC INC ROPHYLAXI S /DX 1ST TO 1 HR THERAPEUT 18449 [facility]AL[facility]DA TELLEZ IC 0 [facility] INJECTION [place] [address] ROSALINDA CROOKSON INFUSION 0 [facility] THERAPY INC [place] PROPHYLAX IS/[place] [address] ROSALINDA CROOKSON INFUSION 0 [facility] THERAPY INC INC PROPHYLAX IS/DX EA HOUR URINE 98114 ROS[facility]DA TELLEZ 0 [facility] TEST INC INC VISUAL COLOR CMPRSN METHS CT PELVIS 18777 ROSALINDA TELLEZ W/O 0 [facility] CONTRAST INC INC MATERIAL 3D 82428 ROSALINDA TELLEZ RENDERING 0 [facility] INC INC W/INTERP& [place] [address] ROS[facility]DA TELLEZ LIPASE 0 [facility] INC INC URNLS DIP 42485 [facility] TELLEZ 0 [facility] STICK/TAB INC INC LET REAGENT AUTO MICROSCOP Y THERAPEUT 00864 ROS[facility]DA TELLEZ IC 0 [facility] INJECTION INC INC IV PUSH EACH NEW DRUG COMPREHEN 60690 ROSALINDA TELLEZ SIVE 0 [facility] [address] ROSALINDA TELLEZ AMYLASE 0 [place] [address] ROSALINDA TELLEZ ABDOMEN 0 [facility] W/O INC INC CONTRAST MATERIAL BLOOD 17944 ROSALINDA ROSALINDA COUNT 0 [facility]OS[facility] COMPLETE INC INC AUTO&AUTO DIFRNTL WBC RADEX 10723 [place] JACE[place] FOOT 0 MEDICAL BRYAN COMPLETE IMAGING MINIMUM 3 ASS VIEWS RADIOLOGI 24730 [place] [facility] C 0 MEDICAL BRYAN EXAMINATI IMAGING ON KNEE 3 ASS VIEWS RADIOLOGI 63238 [place] JACE[place] C 0 MEDICAL BRYAN EXAMINATI IMAGING ON KNEE ASS 1/2 VIEWS ARTERIAL 51827 [facility] PUNCTURE [address] [facility] [place] [address] [facility] INFUSION [address] [facility] EACH ADDITIONA L HOUR GASES 44028 [facility] BLOOD PH [address] [facility] BENITA XCPT PULSE OXIMITRY THER 20350 [facility] PROPH/DX 0 Y JAM NJX HOSPITAL PUSH SINGLE/1S T SBST/DRUG ECG 27539 [facility] ROUTINE [address] [facility] W/LEAST 12 LDS TRCG ONLY W/O I&R HEPATBL 34852 [place] JACEK DUX SYS 0 MEDICAL BRYAN IMG IMAGING GLBLDR ASS THER 18343 ROSALINDA TELLEZ PROPH/DX 0 [facility] NJX IV INC INC PUSH SINGLE/1S T SBST/[place] [address] ROSALINDA TELLEZ INFUSION 0 [facility] THERAPY/P INC INC ROPHYLAXI S /DX 1ST TO 1 HR THERAPEUT 26104 ROSALINDA TELLEZ IC 0 [facility] INJECTION [place] [address] ROSALINDA TELLEZ ABDOMINAL 0 [facility] REAL INC INC TIME W/[place] [address] ROSALINDA TELLEZ INFUSION 0 [facility] THERAPY/P INC INC ROPHYLAXI S /DX 1ST TO [address] [place] [address] ROSALINDA TELLEZ LIPASE 0 [facility] INC INC BLOOD 69532 [facility]EL[facility] COUNT 0 [facility] COMPLETE INC INC AUTO&AUTO DIFRNTL WBC URNLS DIP 75915 [facility] STICK/TAB INC INC LET REAGENT AUTO MICROSCOP Y THERAPEUT 50283 [facility] IC 0 [facility] INJECTION INC INC IV PUSH EACH NEW DRUG BASIC 72558 [facility] TEL[facility] METABOLIC 0 [facility] PANEL INC INC CALCIUM TOTAL URINE 54936 [facility] TEST INC [place] [address] [facility] TEL[facility] INFUSION 0 [facility] THER INC INC PROPH ADDL SEQUENTIA L TO 1 HR OBSERVATI 84946 Aidee BORREGO ON/INPATI 0 KRYSTAL [facility] ENT [facility] CARE 40 MINUTES COLLECTIO 27504 ROSALINDA TELLEZ N VENOUS 0 [facility] BLOOD INC INC VENIPUNCT URE COMPREHEN 12644 ROSALINDA TELLE[facility] SIVE 0 [facility] [place] [address] ROSALINDA TELLEZ AMYLASE 0 [facility] [id number] ROSALINDA TELLE[facility] OBSERVATI 0 [facility] [place] [address] [place] SE[place] ABDOMEN 0 MEDICAL LASHAUN W/O IMAGING CONTRAST ASS MATERIAL CT PELVIS 96308 [place] W/O 0 MEDICAL LASHAUN CONTRAST IMAGING MATERIAL ASS 3D 35915 [place] RENDERING 0 MEDICAL LASHAUN IMAGING W/INTERP& ASS POSTPROC DIFF WORK STATION IADNA 23499 Aidee BORREGO, STREPTOCO 0 KRYSTAL MOORE [facility] GROUP A QUANTIFIC ATION RADEX 59391 [place] JACEK FINGR 0 MEDICAL LINCOLN MINIMUM 2 IMAGING VIEWS ASSOCIATE S OPHTH 95024 ALINE VAUGHN [facility] MEDICAL 0 VISION XM&EVAL COMPRHNSV ESTAB PT 1/> FUNDUS 81152 ALINE VAUGHN NATALIE PHOTOGRAP 0 VISION HY W/INTERPR ETATION & REPORT BLOOD 87951 Aidee BORREGO, COUNT 0 KRYSTAL MOORE COMPLETE PSC AUTO&AUTO DIFRNTL WBC ANESTHESI 02430 [place] ZIEMBROSK A NOSE & 0 ANESTHESI I JR, ACCESSORY A GROUP EDWARD J SINUSES PSC NOS SUBMUCOUS 37735 SANJAY GRACE RESCJ 0 WINSTON WINSTNO INFERIOR TURBINATE PRTL/COMP L SEPTOPLAS 50758 SANJAY PERISHIRLEY TY/SUBMUC 0 WINSTON WINSTON OUS RESECJ W/WO CARTILAGE GRF OTHER 2169 [facility] TURBINECT 0 N N [place] [facility] CLOSED 2171 [facility] REDUCTION 0 N N OF NASAL [facility] OTHER 2188 [facility] SEPTOPLAS 0 N N TY [facility] [place] [address] DEANNE ALICEA, 1/> AREAS 9 BREN W BREN W EACH 15 MINUTES MASSAGE APPL 01551 DEANNE ALICEA, MODALITY 9 BREN W BREN W 1/> AREAS TRACTION MECHANICA L APPLICATI 32925 DEANNE ALICEA, ON 9 BREN W BREN W MODALITY 1/> AREAS HOT/COLD PACKS CHIROPRAC 22083 DEANNE ALICEA, TIC 9 BREN W BREN W MANIPULAT SONNY [place] SPINAL 3-4 REGIONS APPL 28558 DEANNE ALICEA, MODALITY 9 BREN W BREN W 1/> AREAS ELEC STIMJ EA 15 MIN APPL 83587 DEANNE ALICEA, MODALITY 9 BREN W RBEN W 1/> AREAS ELEC STIMJ EA 15 MIN APPLICATI 60047 DEANNE ALICEA, ON 9 BREN W BREN W MODALITY 1/> [place]AS [place] [address] DEANNE ALICEA, 1/> AREAS 9 BREN W BREN W EACH 15 MINUTES MASSAGE APPL 63697 DEANNE ALICEA, MODALITY 9 BREN W BREN W 1/> AREAS TRACTION MECHANICA L CHIROPRAC 91099 DEANNE ALICEA, TIC 9 BREN W BREN W MANIPULAT [place] SP[place]AL 3-[place] [address] DEANNEDEANNE, 1/> AREAS 9 BREN W BREN W EACH 15 MINUTES MASSAGE CHIROPRAC 47605 DEANNE ALICEA, TIC 9 BREN W BREN W MANIPULAT SONNY [place] SPINAL 3-4 REGIONS APPL 60017 DEANNE ALICEA, MODALITY 9 BREN W BREN W 1/> AREAS TRACTION MECHANICA L APPLICATI 09336 DEANNE ALICEA, ON 9 BREN W BREN W MODALITY 1/> AREAS HOT/COLD PACKS APPL 92084 DEANNE ALICEA, MODALITY 9 BREN W BREN W 1/> AREAS ELEC STIMJ EA 15 MIN COLLECTIO 56681 Aidee BORREGO, N VENOUS 9 KRYSTAL MOBLEY TERESA BLOOD PSC VENIPUNCT URE RADEX 59611 MALLORY WILLISR 9 MEDICAL JEREMY P MINIMUM 2 IMAGING VIEWS ASSOCIATE S APPL 82368 DEANNE ALICEA, MODALITY 9 BREN W BREN W 1/> [place] [address] DEANNE ALICEA, 1/> AREAS 9 BREN W BREN W EACH 15 MINUTES MASSAGE CHIROPRAC 47324 DEANNE ALICEA, TIC 9 BREN W BREN W MANIPULAT S[place] SPINAL 3-4 REGIONS APPL 00003 DEANNE ALICEA, MODALITY 9 BREN W BREN W 1/> AREAS E[place] [address] [place] [address] DEANNE ALICEA, 1/> AREAS 9 BREN W BREN W EACH 15 MINUTES MASSAGE APPLICATI 90424 DEANNE ALICEA, ON 9 BREN W BREN W MODALITY 1/> AREAS HOT/COLD PACKS APPL 21491 DEANNE ALICEA, MODALITY 9 BREN W BREN W 1/> AREAS ELEC STIMJ EA 15 MIN CHIROPRAC 70746 DEANNE ALICEA, TIC 9 BREN W BREN W MANIPULAT SONNY [place] SPINAL 3-4 REGIONS APPL 09430 DEANNE ALICEA, MODALITY 9 BREN W BREN W 1/> AREAS TRACTION MECHANICA L APPL 45501 DEANNE ALICEA, MODALITY 9 BREN W BREN W 1/> AREAS TRACTION MECHANICA L APPLICATI 55915 DEANNE ALICEA, ON 9 BREN W BREN W MODALITY 1/> AREAS HOT/COLD PACKS APPL 22006 DEANNE ALICEA, MODALITY 9 BREN W BREN W 1/> AREAS ELEC STIMJ EA 15 MIN CHIROPRAC 50942 DEANNE ALICEA, TIC 9 BREN W BREN W [place]IPULAT [place] SPINAL 3-[address] [place] [address] DEANNE ALICEA, 1/> AREAS 9 BREN W BREN W EACH 15 MINUTES MASSAGE CHIROPRAC 85641 DEANNE ALICEA, TIC 9 BREN W BREN W MANIPULAT SONNY [place] SPINAL 3-4 REGIONS APPL 12442 DEANNE ALICEA, MODALITY 9 BREN W BREN W 1/> AREAS ELEC STIMJ EA 15 MIN APPLICATI 64832 DEANNE DEANNE, ON 9 BREN W BREN W MODALITY 1/> AREAS [place] [address] DEANNE ALICEA, 1/> AREAS 9 BERN W BREN W EACH 15 MINUTES MASSAGE SPHERE V2100 ALINE NOVAK, SINGLE 9 VISION MARGARITA Howe VISION PLANO +/- 4.00 PER LENS FRAMES V2020 ALINE NOVAK, PURCHASES 9 VISION MARGARITA Howe OPHTH 32806 ALINE NOVAK, MEDICAL 9 VISION MARGARITA M XM&EVAL COMPRHNSV ESTAB PT 1/> APPL 29508 DEANNE ALICEA, MODALITY 9 BREN W BREN W 1/> AREAS TRACTION MECHANICA L CHIROPRAC 26675 DEANNE ALICEA, TIC 9 BREN W BREN W [place]IPULAT [place] SPINAL 3-[address] [place] [address] DEANNE ALICEA, 1/> AREAS 9 BREN W BREN W EACH 15 MINUTES MASSAGE APPLICATI 05464 DEANNE ALICEA, ON 9 BREN W BREN W MODALITY 1/> AREAS HOT/COLD PACKS CHIROPRAC 46492 DEANNE ALICEA, TIC 9 BREN W BREN W MANIPULAT S[place]NY [place] SPINAL 3-4 REGIONS APPL 36915 DEANNE ALICEA, MODALITY 9 BREN W BREN W 1/> AREAS ELEC STIMJ EA 15 MIN APPL 88460 DEANNE ALICEA, MODALITY 9 BREN W BREN W 1/> [place] [address] DEANNE ALICEA, 1/> AREAS 9 BREN W BREN W EACH 15 MINUTES MASSAGE APPLICATI 54215 DEANNE ALICEA, ON 9 BREN W BREN W MODALITY 1/> [place] [address] DEANNE ALICEA, 1/> AREAS 9 BREN W BREN W EACH 15 MINUTES MASSAGE APPL 70361 DEANNE ALICEA, MODALITY 9 BREN W BREN W 1/> AREAS ELEC STIMJ EA 15 MIN APPL 00191 DEANNE ALICEA, MODALITY 9 BREN W BREN W 1/> AREAS TRACTION MECHANICA L CHIROPRAC 10309 DEANNE ALICEA, TIC 9 BREN W BREN W [place]IPULAT [place] SPINAL 3-[address] [place] [address] DEANNE ALICEA, 1/> AREAS 9 BREN W BREN W EACH 15 MINUTES MASSAGE APPLICATI 73619 DEANNE ALICEA, ON 9 BREN W BREN W MODALITY 1/> AREAS HOT/COLD PACKS APPL 25781 DEANNE ALICEA, MODALITY 9 BREN W BREN W 1/> AREAS TRACTION MECHANICA L CHIROPRAC 18592 DEANNE ALICEA, TIC 9 BREN W BREN W MANIPULAT S[place]NY [place] SPINAL 3-4 REGIONS APPL 04718 DEANNE ALICEA, MODALITY 9 BREN W BREN W 1/> AREAS ELEC ST[place] [address] DEANNE ALICEA, 1/> AREAS 9 BREN W BREN W EACH 15 MINUTES MASSAGE CHIROPRAC 68782 DEANNE ALICEA, TIC 9 BREN W BREN W MANIPULAT S[place]NY [place] SPINAL 3-4 REGIONS APPL 73584 DEANNE ALICEA, MODALITY 9 BREN W BREN W 1/> AREAS ELEC STIMJ EA 15 MIN APPLICATI 19606 DEANNE ALICEA, ON 9 BREN W BREN W MODALITY 1/> AREAS HOT/COLD PACKS APPL 71486 LARRY ALICEASAY, MODALITY 9 BREN W BREN W 1/> AREAS TRACTION MECHANICA L SELF-CARE 79711 DEANNE ALICEA, /HOME 9 BREN W BREN W MGMT TRAINING EACH 15 MINUTES APPL 41283 DEANNE ALICEA, MODALITY 9 BREN W BREN W 1/> [place] [address] DEANNE ALICEA, 1/> AREAS 9 BREN W BREN W EACH 15 MINUTES MASSAGE APPL 20318 LARRY ALCIEASAY, MODALITY 9 BREN W BREN W 1/> AREAS ELEC STIMJ EA 15 MIN APPLICATI 89916 DEANNE ALICEA, ON 9 BREN W BREN W MODALITY 1/> AREAS HOT/COLD PACKS RADEX 03831 DEANNE DEANNE, SPINE 9 BREN W BREN W CERVICAL 2 OR 3 VIEWS RADEX 24931 DEANNE DEANNE, SPINE 9 BREN W BREN W THORACIC 2 VIEWS APPL 88282 SHAHNAZ, SHAHNAZ, MODALITY 9 TAMI GARRETT 1/> AREAS ER ER ULTRASOUN D EA 15 MIN CHIROPRAC 49234 SHAHNAZ, SHAHNAZ, TIC 9 TAMI GARRETT MANIPULAT ER ER SONNY [place] SPINAL 1-2 REGIONS APPL 09976 SHAHNAZ, SHAHNAZ, MODALITY 9 TAMI TAMI 1/> AREAS ER ER ELEC STIMJ UNATTENDE D APPL 59154 SHAHNAZ, SHAHNAZ, MODALITY 9 TAMI TAMI 1/> AREAS ER ER ULTRASOUN D EA 15 MIN THERAPEUT 49021 SHAHNAZ, SHAHNAZ, IC PX 1/> 9 TAMI TAMI AREAS ER ER EACH 15 MIN EXERCISES CHIROPRAC 08382 SHAHNAZ, SHAHNAZ, TIC 9 TAMI TAMI MANIPULAT ER ER S[place]NY [place] SPINAL 1-2 REGIONS APPL 64636 SHAHNAZ, SHAHNAZ, MODALITY 9 TAMI TAMI 1/> AREAS ER ER ELEC STIMJ UNATTENDE D CHIROPRAC 05204 SHAHNAZ, SHAHNAZ, TIC 9 TAMI TAMI MANIPULAT ER ER SONNY [place] SPINAL 1-2 REGIONS APPL 79963 SHAHNAZ, SHAHNAZ, MODALITY 9 TAMI TAMI 1/> AREAS ER ER ELEC STIMJ UNATTENDE D APPL 89166 SHAHNAZ, SHAHNAZ, MODALITY 9 TAMI TAMI 1/> AREAS ER ER ULTRASOUN D EA 15 MIN CHIROPRAC 02419 SHAHNAZ, SHAHNAZ, TIC 9 TAMI TAMI MANIPULAT ER ER [place] SPINAL 1-2 REGIONS SBSQ 00803 [facility] 9 N FAMILY NAN CARE/DAY PHYS PSC 35 MINUTES CLOSED 84112 SANJAY GRACE, TREATMENT 9 SHERI Novak NASAL FRACTURE W/[place] [address] [facility] READ, HEAD/BRAI 9 MEDICAL [place] N W/O IMAGING CONTRAST ASSOCIATE MATERIAL S 3D 57251 ROSALINDA TELLEZ RENDERING 9 [facility] W/INTERP INC INC & POSTPROCE SS SUPERVISI ON RADEX 28754 [facility] JACEK, NASAL 9 MEDICAL [place] BONES IMAGING COMPLETE ASSOCIATE MINIMUM 3 S VIEWS RADEX 69677 [place] JACEK, ORBITS 9 MEDICAL [place] COMPLETE IMAGING MINIMUM 4 ASSOCIATE VIEWS S CLOSED 92744 SANJAY GRACE, TREATMENT 9 SHERI Novak NASAL FRACTURE W/O MANIPULAT ION URNLS DIP 52848 ROSALINDA TELLEZ 8 [facility] STICK/TAB INC INC LET REAGENT AUTO MICROSCOP Y BASIC 61716 ROSALINDA TELLEZ METABOLIC 8 [facility] PANEL INC INC CALCIUM TOTAL IMMUNOASS 44657 ROSALINDA TELLEZ AY NFCT 8 [facility] AGT ANTB INC INC QUAL/SEMI REG 1 STEP IAADI 43609 ROSALINDA TELLEZ INFLUENZA 8 [facility] B VIRUS INC INC BLOOD 69620 ROSALINDA TELLEZ COUNT 8 [facility] COMPLETE INC INC AUTO&AUTO DIFRNTL WBC IAADI 27710 ROSALINDA TELLEZ INFFLUENZ 8 [facility] [place] [address] ROSALINDA TELLEZ STREPTOCO 8 [facility] CCUS INC INC GROUP A THER 92862 ROSALINDA TELLEZ PROPH/DX 8 [facility] NJX EA INC INC SEQL IV PUSH SBST/DRUG SPHERE V2100 NALLELY BROWNING, SINGLE 8 ALEKSANDR V ALEKSANDR V VISION PLANO +/- 4.00 PER LENS OPHTH 97163 NALLELY BROWNING, MEDICAL 8 ALEKSANDR V ALEKSANDR V XM&EVAL COMPRHNSV ESTAB PT 1/> FITTING 69746 NALLELY BROWNING, SPECTACLE 8 ALEKSANDR V ALEKSANDR V S XCPT APHAKIA MONOFOCAL FRAMES V2020 NALLELY BROWNING, PURCHASES 8 ALEKSANDR V ALEKSANDR V URNLS DIP 39023 ROSALINDA TELLEZ 8 [facility] STICK/TAB INC INC LET REAGENT AUTO MICROSCOP Y THER 31523 ROSALINDA TELLEZ PROPH/DX 8 [facility] NJX IV INC INC PUSH 1ST SBST/DRUG RADIOLOGI 75762 ROSALINDA TELLEZ C 8 [facility] EXAMINATI INC INC ON ANKLE 2 VIEWS RADEX 89051 ALONSO ESTRADA, ANKLE 8 MEDICAL JEREMY P COMPLETE IMAGING MINIMUM 3 ASSOCIATE VIEWS S RADEX 17849 ROSALINDA TELLEZ FOOT 8 [facility] COMPLETE INC INC MINIMUM 3 VIEWS Encounters Encounter Start End Date Code Location Performer Type Date OFFICE 51067 CAROLINE VELAZQUEZ OUTPATIEN 4 4 FAB FAB T VISIT 15 MINUTES OFFICE 15537 [facility] OUTPATIEN 4 4 PHYSICIAN T NEW 20 S GROUP MINUTES OFFICE 45834 KANE MIDDLETON OUTPATIEN 3 3 KARTHIK KARTHIK T VISIT 15 MINUTES HOSPITAL [facility] - 3 3 [facility] T OFF[facility] 62045 JOHANA ESTRADA OUTPATIEN 2 2 T VISIT 10 MINUTES OFFICE 64137 ROSALINDA TELLEZ OUTPATIEN 2 2 [facility] 10 MINUTES OFFICE 46049 ELMO ELMO OUTPATIEN 2 2 MARCELINA MARCELINA T VISIT 15 MINUTES OFFICE 51933 A C OUTPATIEN 2 2 KRYSTAL MOBLEY T VISIT PSC 15 MINUTES OFFICE 48485 ELMO ELMO OUTPATIEN 1 1 MARCELINA MARCELINA T VISIT 15 MINUTES OFFICE 36831 ELMO ELMO OUTPATIEN 1 1 MARCELINA MARCELINA T VISIT 15 MINUTES EMERGENCY 69997 [facility] 1 1 N [facility] 1 [facility] OUTPATIEN INC T OFFICE 83840 ROSALINDA TELLEZ OUTPATIEN 1 1 [facility] 10 MINUTES OFFICE 74276 [facility] PETTEY OUTPATIEN 1 1 PHYSICIAN JAM T NEW 20 S GROUP MINUTES HOSPITAL ROSALINDA - 1 1 [facility] OUTPATIEN INC T OFFICE 03620 ROSALINDA TELLEZ OUTPATIEN 1 1 [facility] 15 [facility]ES HOSP[facility] UNIVERSIT - [address] [facility] T EMERGENCY 34916 UNIVERSIT 1 1 Y [facility] T VISIT HIGH/URGE NT SEVERITY OFFICE 98764 ROSALINDA TELLEZ OUTPATIEN 1 1 [facility] 10 MINUTES OFFICE 96955 ROSALINDA TELLEZ OUTPATIEN 1 1 [facility] 10 MINUTES OFFICE 81622 ROSALINDA TELLEZ OUTPATIEN 1 1 [facility] 10 MINUTES OFFICE 32886 A C ELMO OUTPATIEN 1 1 KRYSTAL MOBLEY MARCELINA T VISIT PSC 15 MINUTES OFFICE 22239 ROSALINDA LIPATIEN 1 1 [facility] 10 MINUTES OFFICE 68196 ROSALINDA TELLEZ OUTPATIEN 1 1 [facility] 10 MINUTES OFFICE 03084 ROSALINDA TELLEZ OUTPATIEN 1 1 [facility] 10 MINUTES OFFICE 90358 TRI JACKSONEN 1 1 NURSE KARTHIK T VISIT PRACTITIO 15 NER GR MINUTES EMERGENCY 79061 UNIVERSIT 1 1 Y [facility]PITAL T VISIT MODERATE SEVERITY HOSPITAL UNIVERSIT - [address] [facility] T OFFICE 07628 A C ELMO OUTPATIEN 1 1 KRYSTAL MOBLEY MARCELINA T VISIT PSC 15 MINUTES OFFICE 66769 ROSALINDA TELLEZ OUTPATIEN 1 1 [facility] 10 MINUTES OFFICE 55498 ROSALINDA TELLEZ OUTPATIEN 1 1 [facility] 10 MINUTES OFFICE 38670 A C ELMO OUTPATIEN 1 1 KRYSTAL MOBLEY MARCELINA T VISIT PSC 15 MINUTES OFFICE 28886 ROSALINDA TELLEZ OUTPATIEN 1 1 [facility] 10 MINUTES OFFICE 72479 ROSALINDA TELLEZ OUTPATIEN 1 1 [facility] 5 [facility] MINUTES OFFICE 90964 ROSALINDA TELLEZ OUTPATIEN 1 1 [facility] 15 MINUTES OFFICE 03922 ROSALINDA TELLEZ OUTPATIEN 1 1 [facility] 10 MINUTES OFFICE 79316 ROSALINDA TELLEZ OUTPATIEN 1 1 [facility] 10 MINUTES OFFICE 87004 [facility] [place] OUTPATIEN 1 1 NURSE T MARTINEZ T VISIT PRACTITIO 15 NER GR MINUTES OFFICE 91885 ROSALINDA TELLEZ OUTPATIEN 1 1 [facility] 10 MINUTES OFFICE 10474 A C OUTPATIEN 1 1 KRYSTAL MOBLEY T VISIT 5 PSC MINUTES OFFICE 79253 ROSALINDA ROSALINDA OUTPATIEN 0 0 [facility] 15 MINUTES OFFICE 23792 A C ELMO OUTPATIEN 0 0 KRYSTAL MOBLEY MARCELINA T VISIT PSC 15 MINUTES OFFICE 91444 ROSALINDA ROSALINDA OUTPATIEN 0 0 [facility] 15 MINUTES OFFICE 49440 A C OUTPATIEN 0 0 KRYSTAL MOBLEY T VISIT 5 PSC MINUTES OFFICE 45661 ANDREA COPPOLA OUTPATIEN 0 0 MEDICAL RONALDO T VISIT SERV 15 FOUNDATIO MINUTES OFFICE 00390 ROSALINDA TELLEZ OUTPATIEN 0 0 [facility] 10 MINUTES OFFICE 89674 [place] EVELYN ALI CONSULTAT 0 0 MEDICAL ION SERV NEW/ESTAB FOUNDATIO PATIENT 60 MIN HOSPITAL ROSALINDA - 0 0 [facility] OUTPATIEN INC T OFFICE 06705 A C ELMO OUTPATIEN 0 0 KRYSTAL HEWITT T VISIT PSC 15 MINUTES HOSPITAL ROSALINDA - 0 0 [facility] 04881 ROSALINDA 0 0 [facility] T VISIT HIGH/URGE NT SEVERITY OFFICE 15640 A C ELMO OUTPATIEN 0 0 KRYSTAL HEWITT T VISIT PSC 15 MINUTES OFFICE 36303 [facility] OUTPATIEN 0 0 NURSE T MARTINEZ T VISIT PRACTITIO 25 NER GR MINUTES OFFICE 85496 A C ELMO OUTPATIEN 0 0 KRYSTAL HEWITT T VISIT 5 PSC MINUTES OFFICE 63295 [place] FLOMEN[facility] CONSULTAT 0 0 MEDICAL T MARTINEZ ION SERV NEW/ESTAB FOUNDATIO PATIENT 60 MIN HOSPITAL UNIVERSIT - 0 0 [facility] T EMERGENCY 12979 UNIVERSIT 0 0 Y [facility] T VISIT HIGH/URGE NT SEVERITY EMERGENCY 85344 ROSALINDA 0 0 [facility] T VISIT MODERATE SEVERITY HOSPITAL ROSALINDA - 0 0 [facility] 34469 [place] RADUL[facility] OUTPATIEN 0 0 MEDICAL VLA T VISIT SERV 15 FOUNDATIO MINUTES HOSPITAL ROSALINDA - 0 0 [facility] 99472 A C OUTPATIEN 0 0 KRYSTAL MOBLEY T VISIT 5 PSC MINUTES OFFICE 53289 A C ELMO OUTPATIEN 0 0 KRYSTAL HEWITT T VISIT PSC 15 MINUTES HOSPITAL ROSALINDA - 0 0 [facility] 27921 ROSALINDA 0 0 [facility] HIGH/URGE NT SEVERITY OFFICE 05895 A C OUTPATIEN 0 0 KRYSTAL MOBLEY T VISIT PSC 15 MINUTES OFFICE 14857 A C ELMO, OUTPATIEN 0 0 KRYSTAL MOORE T VISIT PSC 15 MINUTES OFFICE 67852 A C ELMO, OUTPATIEN 0 0 KRYSTAL MOORE T VISIT 5 PSC MINUTES OFFICE 52836 A C ELMO, OUTPATIEN 0 0 KRYSTAL MOORE T VISIT PSC 15 MINUTES HOSPITAL ROSALINDA - 0 0 [facility] OUTPATIEN INC T OFFICE 41685 A C ELMO, OUTPATIEN 0 0 KRYSTAL MOORE T VISIT 5 PSC MINUTES OFFICE 91954 A C ELMO, OUTPATIEN 0 0 KRYSTAL MOORE T VISIT PSC 15 MINUTES OFFICE 81301 A C ELMO, OUTPATIEN 0 0 KRYSTAL MOORE T VISIT 5 PSC MINUTES OFFICE 18493 A C ELMO, OUTPATIEN 0 0 KRYSTAL MOORE T VISIT 5 PSC MINUTES OFFICE 94017 ANDREA COPPOLA OUTPATIEN 0 0 MEDICAL DEVIN L T VISIT SERV 10 FOUNDATIO MINUTES OFFICE 85475 A C ELMO, OUTPATIEN 0 0 KRYSTAL MOORE T VISIT 5 PSC MINUTES HOSPITAL [facility] - [address] [facility] OFFICE 44205 SANJAY GRACE OUTPATIEN 0 0 [place] MONTERO T VISIT 25 MINUTES OFFICE 72861 A C ELMO, OUTPATIEN 0 0 KRYSTAL MOORE T VISIT 5 PSC MINUTES OFFICE 00502 JEN ZAFARPATIEN 0 0 MEDICAL DEVIN L T VISIT SERV 10 FOUNDATIO MINUTES OFFICE 38021 A C ELMO, OUTPATIEN 0 0 KRYSTAL MOORE T VISIT PSC 15 MINUTES OFFICE 77352 A C ELMO, OUTPATIEN 0 0 KRYSTAL MOORE T VISIT PSC 15 MINUTES OFFICE 41286 A C ELMO, OUTPATIEN 9 9 KRYSTAL MOORE T VISIT PSC 15 MINUTES OFFICE 41170 A Josefa BORREGO, OUTPATIEN 9 9 KRYSTAL MOORE T VISIT PSC 15 MINUTES OFFICE 64664 ALINE SCARLET OUTPATIEN 9 9 VISION MARGARITA Howe T VISIT 10 MINUTES OFFICE 12651 ANDREA COPPOLA OUTPATIEN 9 9 MEDICAL DEVIN L T VISIT SERV 10 FOUNDATIO MINUTES OFFICE 18241 A Josefa BORREGO, OUTPATIEN 9 9 KRYSTAL MOORE T VISIT PSC 15 MINUTES OFFICE 11334 ANDREA COPPOLA OUTPATIEN 9 9 MEDICAL DEVIN L T NEW 30 SERV MINUTES FOUNDATIO OFFICE 41098 A Josefa BORREGO OUTPATIEN 9 9 KRYSTAL MOORE T VISIT 5 PSC MINUTES EMERGENCY 76430 ROSALINDA 9 9 [facility] DEPARTMEN INC T VISIT MODERATE SEVERITY HOSPITAL ROSALINDA - 9 9 [facility] OUTPATIEN INC T OFFICE 90938 [place] [facility] OUTPATIEN 9 9 MEDICAL NN, T VISIT SERV RENNY R 15 FOUNDATIO MINUTES OFFICE 09527 A Josefa BORREGO OUTPATIEN 9 9 KRYSTAL MOORE T VISIT PSC 15 MINUTES PERIODIC 22461 A Josefa BORREGO, PREVENTIV 9 9 KRYSTAL Flores MED EST PSC PATIENT 12-17YRS OFFICE 47437 DEANNE ALICEA OUTPATIEN 9 9 BREN Dash T VISIT 10 MINUTES OFFICE 67273 SHAHNAZ CHRISTIE OUTPATIEN 9 9 TAMI TAMI T VISIT ER ER 15 MINUTES OFFICE 65267 SANJAY GRACE OUTPATIEN 9 9 SHERI Novak T VISIT 25 MINUTES OFFICE 50953 ALINE NOVAK OUTPATIEN 9 9 VISION MARGARITA Howe T VISIT 15 MINUTES HOSPITAL ROSALINDA - 9 9 [facility] OUTPATIEN INC T OFFICE 03056 SANJAY GRACE, CONSULTAT 9 9 SHERI Novak ION NEW/ESTAB PATIENT 40 MIN OFFICE 92296 Aidee BORREGO OUTPATIEN 9 9 KRYSTAL MOORE T VISIT PSC 25 MINUTES OFFICE 39950 Aidee BORREGO OUTPATIEN 9 9 KRYSTAL MOORE T VISIT PSC 15 MINUTES OFFICE 52964 [facility] OUT[facility] 8 8 HEALTH T VISIT CENTRAL ELEMENTAR 15 BANK ACCT Y SCHOOL MINUTES HEALTH NURSE OFFICE 23011 [facility] OUTPATIEN 8 8 HEALTH T VISIT CENTRAL ELEMENTAR 15 BANK ACCT Y SCHOOL MINUTES HEALTH NURSE EMERGENCY 49731 ROSALINDA 8 8 [facility] DEPARTMEN INC T VISIT HIGH/URGE NT SEVERITY HOSPITAL ROSALINDA - 8 8 [facility] OUTPATIEN INC T OFFICE 45370 [facility] OUTPATI[facility] 8 8 HEALTH T VISIT CENTRAL ELEMENTAR 15 BANK ACCT Y SCHOOL MINUTES HEALTH NURSE OFFICE 19473 [facility] OUTPATIEN 8 8 HEALTH T NEW 10 CENTRAL ELEMENTAR MINUTES BANK ACCT Y SCHOOL HEALTH NURSE OFFICE 56369 RADULESCU RADULESCU OUTPATIEN 8 8 , JASMINA C , JASMINA C T VISIT 25 MINUTES OFFICE 65303 Aidee BORREGO OUTPATIEN 8 8 KRYSTAL MOORE T VISIT PSC 15 MINUTES HOSPITAL ROSALINDA - 8 8 [facility] OUTPATIEN INC T EMERGENCY 03278 ROSALINDA 8 8 [facility] DEPARTMEN INC T VISIT MODERATE SEVERITY OFFICE 20124 [place] [facility] [facility] 8 8 MEDICAL , JASMINA Rievro T VISIT 5 SERV MINUTES FOUNDATIO OFFICE 11974 [place] 8 8 KRYSTAL Gomes VISIT PSC 15 MINUTES [facility] ROSALINDA - 8 8 [facility] OUTPATIEN [facility] T
--- OUTSIDE RECORDS SUMMARY | 2016-10-24 18:23 | External Medical Summary Rpt ---
Author Author , Organization [employer] Address Unknown Phone Unavailable Purpose Continuity of Care Document - 04-20-2001 through 2016 Immunization Name Date Route CVX Reacti Commen Provid Is Given on t er Refuse d Polio- Histor H109 No IPV 2000 ical Inform ation - Source Unspec ified MMR Histor H109 No 2000 ical Inform ation - Source Unspec ified Varice Histor H109 No lla 2000 ical Inform ation - Source Unspec ified Hib Histor H109 No (PRP-O 2000 ical MP; Inform pedvax ation - Source Unspec ified DTaP, Histor H109 No UF 2000 ical Inform ation - Source Unspec ified
[2016-10-24 18:25] LABS: URINE BILIRUBIN - DIPSTICK NEGATIVE (NEG); URINE BLOOD TRACE (NEG)
[2016-10-24 19:23] LABS: HEMOGLOBIN 12.7 g/dL (12.2-16.2); LYMPH # 2.4 K/mm3 (0.7-4.5)
--- NOTE | 2016-10-24 20:51 | Emergency Room Report ---
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 N Clinical Suspician of Infection? N Mental Status: 1 - Regular (Normal Baseline) Sepsis Risk:Low Sepsis Risk Have you (or family members/close friends) recently traveled outside the [place]? N If Yes, where/when: Have you had exposure to infectious disease within the past month? N TB? Other? Specify: Source patient, RN notes reviewed, family, old records Exam Limitations no limitations Comment lt flank pain with hx of kidney stones with no fever or gross hematuria Cardiac Chest Pain Chest pain indicative of cardiac No Timing/Duration this evening Severity moderate ALLERGIES Coded Allergies: aspirin (Mild, 09/16/15) cetirizine (From ZYRTEC) (Mild, 09/16/15) duloxetine (From CYMBALTA) (Mild, 09/16/15) latex (Mild, 09/16/15) amoxicillin (VOMITING 09/16/15) ketorolac (From TORADOL) (12/12/15) oxycodone (VOMITING 09/16/15) Home Medications Reported Medications Ahf Viii:C Human/Von Willebr (Humate-P 1 Iu-1 Iu) Lamotrigine (Lamictal) 150 MG PO DAILY Tranexamic Acid (Lysteda) 650 MG PO Q8H PRN BLEEDING DISORDER ETONOGESTREL/ETHINYL ESTRADIOL (Nuvaring Vaginal Ring) 1 ICR VG PRN BC Gabapentin 300 MG PO TID #30 CAPSULE Zolpidem Tartrate (Ambien 10MG) 10 MG PO QHS AMITRIPTYLINE HCL (Amitriptyline Hydrochloride) 10 MG PO DAILY #120 History Medical History General CAD? No Angina: No [place]: No Hypertension? No Hyperlipidemia? No CHF? No DVT? No PE? No COPD? No Asthma? No Anemia? No GERD? No Gastric ulcers? No GI Bleed? No Hernia? No Thyroid Problems? No Hypothyroidism? No CVA? No Seizures? Yes Diabetes? No Renal Insuffiency? No End Stage Renal Disease? No UTI? No Stones? Yes BPH? No GB Disease: Yes Nephritic Syndrome? No Asplenia? No Hepatitis? No Sickle Cell Disease? No Arthritis? Yes Migraines? Yes Cataracts? No Glaucoma? No MRSA? No HIV? No TB? No Anxiety? Yes Depression? Yes Cancer? No More? 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, EDS, JUVENILE FIBROMYALGIA Immunization Hx DT/Tetanus 1-4 YRS Flu LAST YEAR Pneumonia NEVER Surgical Hx Previous Surgery?Y BILATERAL EAR TUBES X 2 BLOOD VESSEL TUMOR REMOV REMOVAL OF NASAL PACKING ENDOSCOPY TEETH EXTRACTED SURG RHINOPLASTY X 2 GALLBLADDER BLOOD VESSEL TUMOR REMOV ORAL SURGERY 2012 TENDON REPAIR L ANKLE BATCH FREEZER Hx LMP 2 Months Ago Family History Family Hx Diabetes No CAD No Hypertension No Hyperlipidemia No Cancer Yes TB No Social History Smoking Hx Smoker: Never Smoker Tobacco: No Alcohol Alcohol: No Drugs none Review of Systems All Other Systems Reviewed and Negative Constitutional denies fever Genitourinary denies: hematuria. Skin denies rash Psychiatric/Neurological denies seizure Physical Exam Vital Signs Vital Signs Date Time Temp Pulse Resp B/P Pulse O2 O2 Flow FiO2 Ox Delivery Rate 10/25 2007 99.4 105 18 133/71 100 10/24 1914 99.4 98 18 143/90 100 10/24 1802 97.8 109 20 146/83 100 - WBC >12,000 or <4,000 or 10% bands? 2 or more SIRS Criteria Met? B/P:133/71 MAP:107 Creatinine >2.0? UA output<0.5ml/kg/hr for 2 hrs? Platelet count >100,000? Lactate >2.0mmol/1? INR >1.2 or PTT > than 60 sec? Evidence of Organ Dysfunction? Provider documented clinical suspician of infection? N Sepsis Criteria Count: 1 Sepsis Risk: Low Sepsis Risk General Appearance no apparent distress Eye Exam - bilateral eye PERRL, bilateral eye EOMI Ear, Nose, Throat normal ENT inspection Respiratory Status No: respiratory distress. 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 No Results/Orders Laboratory Tests 10/24/161907: Urine Test NEGATIVE 10/24/161899: Sodium 142, Potassium 3.9, Chloride 106, Carbon Dioxide 28, BUN 8, Creatinine 0.9, Estimated Creat Clear 143, Estimated GFR (MDRD) 80, Glucose 87, Calcium 9.5 , Total Bilirubin 0.3, AST 11 L, ALT 22, Alkaline Phosphatase 178 H, Total Protein 8.1, Albumin 3.4, Globulin 4.7 H, Albumin/Globulin Ratio 0.7 L, Amylase 69, Lipase 167, WBC 7.8, RBC 5.03, Hgb 12.7, Hct 40.3, MCV 80.2 L, RDW 13.9, Plt Count 373, MPV 7.7, Gran % 61.2, Gran # 4.8, Lymphocytes % 31.0, Monocytes % 6.3, Eosinophils % 1.3, Basophils % 0.2, Lymphocytes # 2.4, Monocytes # 0.5, Eosinophils # 0.1, Basophils # 0.0, PUBS MCHC 31.4 L, MCH 25.2 L 10/24/161806: Urine Color YELLOW, Urine Appearance Clear, Urine pH 6.0, Ur Specific [place] 1.015, Urine Protein NEGATIVE, Urine Ketones NEGATIVE, Urine Blood TRACE H, Urine Nitrate NEGATIVE, Urine Bilirubin NEGATIVE, Urine Urobilinogen 0.2, Ur Leukocyte Esterase TRACE H, Urine Glucose NEGATIVE Current Medication Orders Sig/[place] Start time Last Medication Dose Route Stop Time Status Admin Cephalexin 500 MG ONCE ONE 10/24 2100 r Monohydrate PO 10/24 2100 Promethazine HCl 0 .STK-MED ONE 10/24 1849 DC .ROUTE Promethazine HCl 25 MG ONCE ONE 10/24 184 DC 10/24 IM 10/24 184 185 Sodium Chloride 25 ML ONCE ONE 10/24 1844 DC 10/24 IV 10/24 185 185 Orders Procedure Date/time Status DIET-NOTHING BY MOUTH 10/25 B Active CULTURE, URINE 10/[address] ABD & PELVIS W/O CONTRAST 10/24 1917 Active UTC URINE 10/[address] ABD/PELVIS REQ 10/24 1905 Complete LIPASE 06/19 1906 Complete CBC WITH AUTO DIFF 10/24 1905 Complete CHEM 12 PROFILE 10/24 190 Complete AMYLASE 10/24 1905 Complete UTC URINE DIPSTICK 10/24 180 Complete XRAY/CT/US XRAY/CT/US CT abdomen, pelvis CT interpretation by discussed w/radiologist Time results known: 2048 CT Results normal/NAD Departure Departure Time of Disposition 2048 Disposition Still a Patient Clinical Impression Primary Impression: Acute left flank pain Secondary Impressions: History of renal calculi Condition STABLE Referrals Osiel Pa MD (Family) Patient Instructions DI for Flank Pain Additional Instructions Sent to ER for further evaluation and management and see your urologist and pcp for follow up and urine culture results Discharge Counseling Counseled pt/family regarding diagnosis, test results, follow up needs Prescriptions Current Visit Scripts CEPHALEXIN (Keflex 500MG Capsule) 500 MG PO Q8H #21 CAP ED Critical Care Critical Care No at 2057
--- NOTE | 2016-10-24 20:51 | Emergency Room Report ---
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 N Clinical Suspician of Infection? N Mental Status: 1 - Regular (Normal Baseline) Sepsis Risk:Low Sepsis Risk Have you (or family members/close friends) recently traveled outside the [place]? N If Yes, where/when: Have you had exposure to infectious disease within the past month? N TB? Other? Specify: Source patient, RN notes reviewed, family, old records Exam Limitations no limitations Comment lt flank pain with hx of kidney stones with no fever or gross hematuria Cardiac Chest Pain Chest pain indicative of cardiac No Timing/Duration this evening Severity moderate ALLERGIES Coded Allergies: aspirin (Mild, 09/16/15) cetirizine (From ZYRTEC) (Mild, 09/16/15) duloxetine (From CYMBALTA) (Mild, 09/16/15) latex (Mild, 09/16/15) amoxicillin (VOMITING 09/16/15) ketorolac (From TORADOL) (12/12/15) oxycodone (VOMITING 09/16/15) Home Medications Reported Medications Ahf Viii:C Human/Von Willebr (Humate-P 1 Iu-1 Iu) Lamotrigine (Lamictal) 150 MG PO DAILY Tranexamic Acid (Lysteda) 650 MG PO Q8H PRN BLEEDING DISORDER ETONOGESTREL/ETHINYL ESTRADIOL (Nuvaring Vaginal Ring) 1 ICR VG PRN BC Gabapentin 300 MG PO TID #30 CAPSULE Zolpidem Tartrate (Ambien 10MG) 10 MG PO QHS AMITRIPTYLINE HCL (Amitriptyline Hydrochloride) 10 MG PO DAILY #120 History Medical History General CAD? No Angina: No [place]: No Hypertension? No Hyperlipidemia? No CHF? No DVT? No PE? No COPD? No Asthma? No Anemia? No GERD? No Gastric ulcers? No GI Bleed? No Hernia? No Thyroid Problems? No Hypothyroidism? No CVA? No Seizures? Yes Diabetes? No Renal Insuffiency? No End Stage Renal Disease? No UTI? No Stones? Yes BPH? No GB Disease: Yes Nephritic Syndrome? No Asplenia? No Hepatitis? No Sickle Cell Disease? No Arthritis? Yes Migraines? Yes Cataracts? No Glaucoma? No MRSA? No HIV? No TB? No Anxiety? Yes Depression? Yes Cancer? No More? 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 Skin denies rash Psychiatric/Neurological denies seizure Physical Exam Vital Signs Vital Signs Date Time Temp Pulse Resp B/P Pulse O2 O2 Flow FiO2 Ox Delivery Rate 10/25 2007 99.4 105 18 133/71 100 10/24 1914 99.4 98 18 143/90 100 10/24 1802 97.8 109 20 146/83 100 - WBC >12,000 or <4,000 or 10% bands? 2 or more SIRS Criteria Met? B/P:133/71 MAP:107 Creatinine >2.0? UA output<0.5ml/kg/hr for 2 hrs? Platelet count >100,000? Lactate >2.0mmol/1? INR >1.2 or PTT > than 60 sec? Evidence of Organ Dysfunction? Provider documented clinical suspician of infection? N Sepsis Criteria Count: 1 Sepsis Risk: Low Sepsis Risk General Appearance no apparent distress Eye Exam - bilateral eye PERRL, bilateral eye EOMI Ear, Nose, Throat normal ENT inspection Respiratory Status No: respiratory distress. Cardiovascular regular rate/rhythm Peripheral Pulses Pulses normal Yes Extremities normal inspection Strength 4 Upper Ext (L), 4 Upper Ext (R), 4 Lower Ext (L), 4 Lower Ext (R) Neurologic alert, exerciser horse II-XII nml as tested Reflexes Reflexes normal No Mental status normal mood/affect Skin intact Medical Decision Making LABS/Meds/Orders Pt receiving controlled substance in ED? No Results/Orders Laboratory Tests 10/24/161907: Urine Test NEGATIVE 10/24/161899: Sodium 142, Potassium 3.9, Chloride 106, Carbon Dioxide 28, BUN 8, Creatinine 0.9, Estimated Creat Clear 143, Estimated GFR (MDRD) 80, Glucose 87, Calcium 9.5 , Total Bilirubin 0.3, AST 11 L, ALT 22, Alkaline Phosphatase 178 H, Total Protein 8.1, Albumin 3.4, Globulin 4.7 H, Albumin/Globulin Ratio 0.7 L, Amylase 69, Lipase 167, WBC 7.8, RBC 5.03, Hgb 12.7, Hct 40.3, MCV 80.2 L, RDW 13.9, Plt Count 373, MPV 7.7, Gran % 61.2, Gran # 4.8, Lymphocytes % 31.0, Monocytes % 6.3, Eosinophils % 1.3, Basophils % 0.2, Lymphocytes # 2.4, Monocytes # 0.5, Eosinophils # 0.1, Basophils # 0.0, PUBS MCHC 31.4 L, MCH 25.2 L 10/24/161806: Urine Color YELLOW, Urine Appearance Clear, Urine pH 6.0, Ur Specific [place] 1.015, Urine Protein NEGATIVE, Urine Ketones NEGATIVE, Urine Blood TRACE H, Urine Nitrate NEGATIVE, Urine Bilirubin NEGATIVE, Urine Urobilinogen 0.2, Ur Leukocyte Esterase TRACE H, Urine Glucose NEGATIVE Current Medication Orders Sig/[place] Start time Last Medication Dose Route Stop Time Status Admin Cephalexin 500 MG ONCE ONE 10/24 2100 r Monohydrate PO 10/24 2100 Promethazine HCl 0 .STK-MED ONE 10/24 1849 DC .ROUTE Promethazine HCl 25 MG ONCE ONE 10/24 184 DC 10/24 IM 10/24 184 185 Sodium Chloride 25 ML ONCE ONE 10/24 1844 DC 10/24 IV 10/24 185 185 Orders Procedure Date/time Status DIET-NOTHING BY MOUTH 10/25 B Active CULTURE, URINE 10/[address] ABD & PELVIS W/O CONTRAST 10/24 1917 Active UTC URINE 10/[address] ABD/PELVIS REQ 10/24 1905 Complete LIPASE 06/19 1906 Complete CBC WITH AUTO DIFF 10/24 1905 Complete CHEM 12 PROFILE 10/24 190 Complete AMYLASE 10/24 1905 Complete UTC URINE DIPSTICK 10/24 180 Complete XRAY/CT/US XRAY/CT/US CT abdomen, pelvis CT interpretation by discussed w/radiologist Time results known: 2048 CT Results normal/NAD Departure Departure Time of Disposition 2048 Disposition Still a Patient Clinical Impression Primary Impression: Acute left flank pain Secondary Impressions: History of renal calculi Condition STABLE Referrals Osiel Pa MD (Family) Patient Instructions DI for Flank Pain Additional Instructions Sent to ER for further evaluation and management and see your urologist and pcp for follow up and urine culture results Discharge Counseling Counseled pt/family regarding diagnosis, test results, follow up needs Prescriptions Current Visit Scripts CEPHALEXIN (Keflex 500MG Capsule) 500 MG PO Q8H #21 CAP ED Critical Care Critical Care No at 2057
[2016-10-24] MEDS ORDERED: KEFLEX 500MG.500 MG PO (20:56)
[2016-10-24 21:15] VITALS: BP 127/64
--- NOTE | 2016-10-25 08:31 | RADIOLOGY REPORT PS360 ---
CT ABD PELVIS W/O CONTRAST COMPARISON: CT scan abdomen pelvis 03/22/2014 HISTORY: Abdominal and left flank pain, history of previous stones TECHNIQUE: Multiaxial scans obtained from hemidiaphragms the pelvic floor and were performed without IV or oral contrast. Sagittal and coronal reformats were evaluated as well FINDINGS: The lower lung jimenez are clear. The liver spleen and pancreas appear normal. The stomach is markedly distended with ingested food particles. There has been a previous cholecystectomy. The adrenal glands are normal. The kidneys are normal in size and there is a tiny 1 to 2 mm nonobstructing calculus lower pole left kidney. There is no obstructive uropathy of either kidney. The small bowel is normal. I do not definitely identify the appendix but there are no pericecal inflammatory changes. There is a moderate amount stool in the ascending and transverse colon. There is a tiny umbilical hernia containing fat only. The uterus is small but in the midline, the urinary bladder appears normal. There is no free fluid in the pelvis. IMPRESSION: Tiny nontracking calculus lower pole left kidney, stomach distended with food particles otherwise essentially unremarkable study. I agree with the [facility] report.
== END 2016-10-24 21:16 | disposition still patient (30) ==
LOC: UTC 17:55 → ER 17:57
PROVIDERS: Emergency Medicine; Nurse Practitioner Family